=== PATIENT | female | born 1965 | race Caucasian/White ===

== ENCOUNTER → 2022-01-21 | Outpatient (CLI) | payer OTHER, SELFPAY ==
--- NOTE | 2022-01-21 15:23 | US_ITS ---
STUDY: THYROID ULTRASOUND REASON FOR EXAM: Female, 56 years old. GOITER TECHNIQUE: Ultrasound evaluation of the thyroid was performed with real-time and static schmidt-scale imaging. COMPARISON: None. FINDINGS: RIGHT LOBE: The right lobe of the thyroid gland measures 4.2 x 1.7 x 1 point cm. There is a heterogeneous echotexture. There are no demonstrated solid, cystic or complex lesions. LEFT LOBE: The left lobe of the thyroid gland measures 3.6 x 1.5 x 1.2 cm. There is a heterogeneous echotexture. Small hyperechoic solid nodule in the lower pole measuring 5 x 7 x 6 mm demonstrating irregular margins and jomar nodular vascularity ISTHMUS: The isthmus measures 3 mm . The regional lymph nodes are normal. US/Thyroid IMPRESSION: Borderline enlargement of the thyroid demonstrating heterogeneous echogenicity. Small subcentimeter nodule in the lower pole of the left lobe likely adenoma. Recommend clinical correlation and follow-up studies Electronically Signed: Diego Pereira MD at 17:04 EST ,
== END | disposition home or self-care (01) ==
PROVIDERS: PCP Internal Medicine Endocrinology, Diabetes & Metabolism; Referring Provider Internal Medicine Endocrinology, Diabetes & Metabolism; Visit Provider Internal Medicine Endocrinology, Diabetes & Metabolism
DX: E04.9 Nontoxic goiter, unspecified (principal)
CPT/HCPCS: 76536

== ENCOUNTER → 2022-12-29 | Outpatient (CLI) | payer OTHER, SELFPAY ==
--- NOTE | 2022-12-29 11:45 | RAD_ITS ---
STUDY: X-RAY - PELVIS AND LEFT HIP REASON FOR EXAM: Female, 57 years old. Hip pain. TECHNIQUE: 3 views of the pelvis and hip. COMPARISON: None. FINDINGS: There is a non-specific bowel gas pattern. Clips projected over the upper right ilium and sacrum. Phleboliths. Mild arthrosis of both sacroiliac joints, symphysis pubis and both hips. . RAD/HIP, UNI W/ Pelvis 2-3 Views IMPRESSION: Mild osteoarthritic changes. No acute abnormality. Electronically Signed: Moses Jansen MD at 13:44 EDT ,
--- NOTE | 2022-12-29 12:00 | RAD_ITS ---
STUDY: X-RAY - LUMBAR SPINE REASON FOR EXAM: Female, 57 years old. Low back pain with right-sided sciatica TECHNIQUE: 4 view(s) of the lumbar spine were obtained. COMPARISON: None FINDINGS: Normal lumbar lordosis. No substantial scoliosis. Normal alignment of the vertebrae. Diffuse lower thoracic and lumbosacral facet sclerosis. Mild intervertebral disc space narrowing in the lower thoracic spine and at L3-4, L4-5 and L5-S1. Osteophytes most marked at L3-4 and L4-5. Clips projected over the upper right ilium and right sacrum. Phleboliths. RAD/L/S Spine Min 4 Views IMPRESSION: Mild lower lumbosacral spondylosis. No other abnormality. Electronically Signed: Moses Jansen MD at 14:48 EDT ,
== END | disposition home or self-care (01) ==
LOC: RAD 11:42
PROVIDERS: PCP Internal Medicine Endocrinology, Diabetes & Metabolism; Referring Provider Registered Nurse; Visit Provider Registered Nurse
DX: M25.552 Pain in left hip (principal); M54.41 Lumbago with sciatica, right side; G89.29 Other chronic pain
CPT/HCPCS: 72110; 73502

== ENCOUNTER → 2023-07-24 | Outpatient (CLI) | payer OTHER, SELFPAY ==
--- NOTE | 2023-07-24 10:07 | US_ITS ---
STUDY: RENAL ULTRASOUND - COMPLETE REASON FOR EXAM: Female, 58 years old. RENAL CYSTS TECHNIQUE: Ultrasound evaluation of the kidneys was performed with real-time and static dean-scale imaging. COMPARISON: None. FINDINGS: RIGHT KIDNEY: Normal location of the right kidney, which is normal in size. The right kidney measures 11.0 cm. There is a normal cortex of the right kidney. The renal cortex measures 1.1 cm. There is no right renal mass or cyst. There are no right renal calculi. There is no right hydronephrosis. DISTAL RIGHT URETER: There is non-visualization of the distal right ureter. There is no demonstrated right ureterovesical junction calculus. There is a visualized right ureteral jet. LEFT KIDNEY: Normal location of the left kidney, which is normal in size. The left kidney measures 9.5 cm. There is a normal cortex of the left kidney. The renal cortex measures 1.1 cm. There is no left renal mass or cyst. There are no left renal calculi. There is no left hydronephrosis. DISTAL LEFT URETER: There is non-visualization of the distal left ureter. There is no demonstrated left ureterovesical junction calculus. There is a visualized left ureteral jet. BLADDER: The distended urinary bladder has a volume of 252 ml. The empty urinary bladder has a volume of ml. There is a normal wall thickness of the distended urinary bladder. There is no demonstrated mass within the urinary bladder. There are no demonstrated bladder calculi. US/Kidney and Bladder IMPRESSION: Normal ultrasound of the kidneys and urinary bladder. Electronically Signed: Hiren Gomez MD at 22:17 EDT ,
--- NOTE | 2023-07-24 10:08 | US_ITS ---
STUDY: THYROID ULTRASOUND REASON FOR EXAM: Female, 58 years old. HYPOTHYROIDISM TECHNIQUE: Ultrasound evaluation of the thyroid was performed with real-time and static schmidt-scale imaging. COMPARISON: 01/21/2022 FINDINGS: RIGHT LOBE: The right lobe of the thyroid gland measures 4.0 x 1.3 x 1.4 cm. There is a heterogeneous echotexture. Nodule 1:6 x 5 x 6 mm solid hypoechoic wider than tall smoothly marginated nodule with no echogenic foci (TR 4) in the superior right lobe consistent with an adenoma. LEFT LOBE: The left lobe of the thyroid gland measures 3.5 x 1.3 x 1.3 cm. There is a heterogeneous echotexture. Nodule 2:7 x 6 x 7 mm solid isoechoic wider than tall smoothly marginated nodule with no echogenic bedside TR 3) in the inferior left lobe consistent with an adenoma. ISTHMUS: The isthmus measures 5 mm thick. . The regional lymph nodes are normal. US/Thyroid IMPRESSION: Thyroiditis with small adenomas. Electronically Signed: Hiren Gomez MD at 22:19 EDT ,
== END | disposition home or self-care (01) ==
LOC: US 10:01
PROVIDERS: PCP Registered Nurse; Referring Provider Registered Nurse; Visit Provider Registered Nurse
DX: Q61.02 Congenital multiple renal cysts (principal); E03.9 Hypothyroidism, unspecified
CPT/HCPCS: 76536; 76770

== ENCOUNTER 2023-10-16 20:14 | Emergency (ER) | payer OTHER, SELFPAY ==
[2023-10-16 20:15] VITALS: BP 166/119; PULSE 77; RESP 18; TEMP 36.8; O2SAT 100; BMI 33.3
--- NOTE | 2023-10-16 20:24 | EX.ED.DYSGE1 ---
HPI History of Present Illness Chief Complaint: Allergic Reaction Informant: patient and spouse/S.O. Narrative Narrative: 58-year-old female presenting to the emergency room with a bee sting. Patient states that she was working in the flower beds when she was stung by a very big insect on her left forearm. States she got very shaky and had blurry vision she felt her heart racing. gave her a dose of Benadryl and they came to the hospital. She has had no other significant reactions. Patient denies any lip or tongue swelling. She did note that her tongue was feeling different than normal. She developed some hives at the site of the injection and some redness around her neck. no wheezing. She felt a burning sensation from her head to her toes. [facility] Medical History (Updated 10/16/23 @ 20:[address] Zain Harding DO) Hypothyroidism Medical History no medical history Home Medications ?Medication ?Instructions ?Recorded ?Last Taken ?Type levothyroxine 100 mcg tablet 100 mcg PO DAILY 10/16/23 Unknown History valacyclovir 1 gram tablet 4,000 mg PO X1 10/16/23 Unknown History Allergy/AdvReac Type Severity Reaction Status Date / Time cortisone Allergy Mild Rash Verified 10/16/23 20:19 Social History Smoking Status: Former smoker ROS ROS ED ROS Narrative Shakiness burning sensation from head to toe Constitutional Constitutional ED: Denies chills or weight loss Eyes Eyes: Denies change in vision or diplopia ENT ENT ED: Denies ear pain, rhinorrhea or sore throat Cardiovascular Cardiovascular: Reports racing heartbeat; Denies chest pain, orthopnea or palpitations Respiratory/Chest Respiratory/Chest: Denies cough, dyspnea or orthopnea Gastrointestinal Gastrointestinal: Denies abdominal pain, diarrhea, nausea or vomiting Genitourinary Genitourinary ED: Denies dysuria, hematuria or urinary frequency Musculoskeletal Musculoskeletal: Denies arthralgias or myalgias Integumentary Reports rash; Denies abscess Neurologic Neurologic: Denies headache(s) or weakness Psychiatric Psychiatric: Denies anxiety, depression, suicidal ideation or suicidal thoughts Endocrine Endocrinology: Denies polydipsia, polyphagia or polyuria Allergic/Immunologic Allergic/Immunologic ED: Denies mouth swelling, tongue swelling or urticaria EXAM Physical Exam Const Vital Signs: 10/16/23 20:15 10/16/23 21:15 Temperature 98.2 F Temperature Source Temporal Pulse Rate 77 61 Respiratory Rate 18 12 Blood Pressure 166/119 H 128/74 H Blood Pressure Mean 134 92 Pulse Ox 100 99 Oxygen Delivery Method Room Air Room Air Positive well nourished and well developed General Appearance ED: well developed HEENT Reports normocephalic, head/scalp atraumatic and moist mucous membranes Eyes PERRL and EOMs intact bilaterally Neck no lymphadenopathy, supple and no JVD Resp normal respiratory effort and clear to auscultation bilaterally Cardio regular rate, regular rhythm and no murmurs GI normal to inspection, nondistended, normoactive bowel sounds and non-tender Palpation: soft Back/Spine no CVA tenderness and normal ROM Extremity normal to inspection General Extremety ED: Negative for edema General Extremity: Negative for edema Neuro oriented x3 and CN's II-XII intact bilaterally Sensorium / Orientation: alert Motor Exam: strength 5/5 throughout Psych mental status grossly normal Mood & Affect: Negative for depressed or tearful Skin no wounds Skin Narrative: There is a outlined area right anterior proximal forearm that is slightly erythematous and raised. I do not appreciate any diffuse hives. MDM MDM MDM Narrative Medical decision making narrative: Patient was placed on the monitor. She has already had Benadryl and so I gave her a dose of Pepcid. She notes allergic reaction to cortisone so I opted to not treat with steroids and to observe her. She is doing well. I do not appreciate any hives. The injection site shows some mild swelling. She would like to have some EpiPen's at home. Patient will continue Benadryl as well as some hydrocortisone cream at the injection site. She was advised that she may have redness and swelling at the site of envenomation. History & Record Review Discussion w/independent historian: Patient and Significant other Discharge Plan Triage Chief Complaint: Allergic Reaction ED Provider: Zain Harding Dx/Rx/DC Orders Prescriptions: No Action valacyclovir 1 gram tablet 4,000 mg PO X1 levothyroxine 100 mcg tablet 100 mcg PO DAILY Primary Care Provider: Antonella Pacheco NP Referrals: Antonella Pacheco PRINTING TABLE WORKER, PRINTING TABLE WORKER-C [Primary Care Provider] - Print Language: Tajik
[2023-10-16] MEDS: Famotidine 20 MG Tablet 40 MG PO (20:31)
[2023-10-16 21:15] VITALS: BP 128/74; PULSE 61; RESP 12; O2SAT 99
[2023-10-16 21:53] VITALS: BP 123/78; PULSE 88; RESP 16; TEMP 36.6; O2SAT 100
== END 2023-10-16 21:54 | disposition home or self-care (01) ==
PROVIDERS: Emergency Provider Emergency Medicine; PCP Registered Nurse; Visit Provider Emergency Medicine
DX: H53.8 Other visual disturbances (principal); T63.444A Toxic effect of venom of bees, undetermined, initial encounter; Z87.891 Personal history of nicotine dependence; E03.9 Hypothyroidism, unspecified; Z79.890 Hormone replacement therapy
CPT/HCPCS: 99284

== ENCOUNTER → 2024-05-01 | Outpatient (CLI) | payer OTHER, SELFPAY ==
[2024-05-01 12:35] LABS: Follicle Stimulating Hormone 6.6 mIU/mL; Luteinizing Hormone 8.9 mIU/mL
== END | disposition home or self-care (01) ==
PROVIDERS: PCP Registered Nurse; Referring Provider Obstetrics & Gynecology; Visit Provider Obstetrics & Gynecology
DX: N93.9 Abnormal uterine and vaginal bleeding, unspecified (principal)
CPT/HCPCS: 36415; 82670; 83001; 83002

== ENCOUNTER → 2024-05-12 | Outpatient (CLI) | payer OTHER, SELFPAY ==
--- NOTE | 2024-05-12 12:52 | US_ITS ---
PROCEDURE: PELVIC W/ TRANSVAGINAL REASON FOR EXAM: Abnormal uterine bleeding. TECHNIQUE: Transabdominal and transvaginal pelvic ultrasound COMPARISON: None. FINDINGS: Measurements: Uterus: 12.2 cm x 6.1 cm x 4.9 cm with a volume of 190.7 mL Endometrial Thickness: 11.3 mm. Endometrial thickening. Right Ovary: The patient is status post right oophorectomy. Left Ovary: 2.9 cm x 2.5 cm x 2 cm with a volume of 7.64 mL. TRANSABDOMINAL: Uterus: There are multiple small fibroids seen. The largest is in the fundal portion measuring 1.8 cm x 1.3 cm 1.4 cm. There is a nabothian cyst. Endometrium: Endometrium measures 11.3 mm. It is thickened. Right ovary: Status post right oophorectomy Left ovary: Normal size and echotexture. No large pelvic mass identified. Transvaginal sonography was performed to better visualize the endometrium. TRANSVAGINAL: Uterus: Anteverted. Small uterine fibroids. Endometrium: Endometrium is thickened and measures 11.3 mm. Right ovary: Status post right oophorectomy. Left ovary: Normal size and echotexture. Other adnexal findings: None. Cul-de-sac: No free intraperitoneal fluid identified. No tenderness. US/Pelvic w/ Transvaginal IMPRESSION: Status post right oophorectomy. Multiple small uterine fibroids. Endometrial thickening measuring 11.3 mm. Reading Location: [id number]
== END | disposition home or self-care (01) ==
LOC: US 12:48
PROVIDERS: PCP Registered Nurse; Referring Provider Obstetrics & Gynecology; Visit Provider Obstetrics & Gynecology
DX: N93.9 Abnormal uterine and vaginal bleeding, unspecified (principal)
CPT/HCPCS: 76830; 76856

== ENCOUNTER → 2024-06-30 | Outpatient (CLI) | payer OTHER, SELFPAY ==
--- NOTE | 2024-06-30 09:30 | EMB_PTH ---
PATIENT: GRACE ELKINS LOC: [facility] U#:[id number] AGE/SX: 59/F ROOM: RE06/30/[address]: Dr. Sarah Cardoso DO : 1965 BED: DIS: 06/30/2024 SPEC #: [id number] RECD: 06/30/24 12:36 STATUS: KEV TOM #: [id number] JULIANN: 06/30/24 09:[address]: Sarah Cardoso DEPT: SURGICAL PATHOLOGY RECD BY: Mansoor Perez ENTERED: 06/30/24 12:47 SP TYPE: ENDOM BX/C OTHR DR: Antonella Pacheco, DUNCAN Tissues: A - POLYP B - Endometrium, NOS Procedures: Surgery Specimen Level IV HEADER OPERATION: Polypectomy, endometrial bleeding PRE-OP DIAGNOSIS: Cervical polyp TISSUE SUBMITTED: A- Cervical polyp, B- Endometrial lining MICROSCOPIC DIAGNOSIS A. Cervix, polyp, polypectomy: * Benign endocervical mucosal polyp with marked active chronic inflammation. B. Endometrium, biopsy: * Polypoid fragments of benign endocervical mucosa. * Exfoliated squamous and columnar cervical epithelial cells. * No endometrium seen. MICROSCOPIC DESCRIPTION Slides are reviewed. GROSS DESCRIPTION A. Received in formalin in a container labeled with the patient's name, date of , and cervical polyp is a white-red, wispy fragment of soft tissue with attached blood clot material measuring 1.0 x 0.5 x 0.3 cm together. Submitted in toto in A1. B. Received in formalin in a container labeled with the patient's name, date of , and EMB are multiple red-ramsey fragments of soft tissue admixed with blood and mucus measuring 1.7 x 1.3 x 0.4 cm in aggregate. Submitted in toto in B1. [facility] 06-30-2024 CPT:85785i6
== END | disposition home or self-care (01) ==
LOC: LABSPEC 11:39
PROVIDERS: PCP Registered Nurse; Referring Provider Obstetrics & Gynecology; Visit Provider Obstetrics & Gynecology
DX: N84.1 Polyp of cervix uteri (principal)
CPT/HCPCS: 88305

== ENCOUNTER → 2024-10-09 | Outpatient (CLI) | payer OTHER, SELFPAY ==
--- NOTE | 2024-10-09 14:30 | EMB_PTH ---
PATIENT: GRACE ELKINS LOC: [facility] U#:[id number] AGE/SX: 59/F ROOM: RE10/09/[address]: Dr. Sarah Cardoso DO : 1965 BED: DIS: 10/09/2024 SPEC #: [id number] RECD: 10/09/24 15:01 STATUS: KEV TOM #: [id number] JULIANN: 10/09/24 14:[address]: Sarah Cardoso DEPT: SURGICAL PATHOLOGY RECD BY: Leland Guy ENTERED: 10/09/24 15:36 SP TYPE: ENDOM BX/C NELLA DR: Antonella Pacheco, DUNCAN Tissues: A - Endometrium, NOS Procedures: Surgery Specimen Level IV HEADER OPERATION: Endometrial biopsy PRE-OP DIAGNOSIS: Menorrhagia TISSUE SUBMITTED: A- Endometrial lining MICROSCOPIC DIAGNOSIS A. Endometrium, biopsy: - Few fragmented endometrial glands - see note. - Scant superficial endocervical epithelium. Note: No endometrial stroma is included. Scant tissue is present. Clinical correlation to assess the adequacy of this sampling is necessary. MICROSCOPIC DESCRIPTION Slides are reviewed. GROSS DESCRIPTION A. Received in formalin labeled with the patient's name and date of is a 1.5 x 1.5 x 0.1 cm aggregate of mucoid material and flecks of red tissue. Entirely submitted in 1 cassette. [facility] 10/09/2024 CPT:75344
== END | disposition home or self-care (01) ==
LOC: BWCLAB 13:38 → LABSPEC 14:44
PROVIDERS: PCP Registered Nurse; Visit Provider Obstetrics & Gynecology
DX: N92.0 Excessive and frequent menstruation with regular cycle (principal)
CPT/HCPCS: 88305

== ENCOUNTER 2024-10-17 05:34 | Day surgery (SDC) | payer OTHER, SELFPAY ==
[2024-10-09 15:02] LABS: Hematocrit 37.4 % (37-47); Hemoglobin 12.9 g/dL (12.0-15.0); Mean Corp Hgb Conc 34.5 g/dL (32-36); Mean Corpuscular Volume 94.9 fL (81-99); Mean Platelet Vol. 9.3 fl (6.2-12.0); Platelet Count 234 K/mm3 (150-450); RBC Distribution Width CV 12.2 % (11.6-14.6); RBC Distribution Width SD 42.1 fl (35.1-43.9); Red Blood Count 3.94 M/mm3 (4.2-5.4); White Blood Count 6.8 K/mm3 (4.4-11.0)
[2024-10-09 15:41] LABS: Magnesium 1.9 mg/dL (1.5-2.2)
[2024-10-09 16:51] LABS: Anion Gap 12 (5-15); BUN 15 mg/dL (4-19); BUN/Creat Ratio 20.9 RATIO (10-20); Calcium,Total 8.9 mg/dL (7.6-11.0); Carbon Dioxide 25.4 mmol/L (21.0-32.0); Chloride 103 mmol/L (98-108); Glucose 122 mg/dL (70-99); Potassium 3.7 mmol/L (3.3-5.1)
--- NOTE | 2024-10-11 11:49 | EKG12_ITS ---
Test Reason : PREOP Blood Pressure : */* mmHG Vent. Rate : 62 BPM Atrial Rate : 62 BPM P-R Int : 168 ms QRS Dur : 72 ms QT Int : 412 ms P-R-T Axes : 20 1 8 degrees QTcB Int : 418 ms Normal sinus rhythm Normal ECG Confirmed by ISAAC DAO, ABIODUN ([id number]), index editor GERBER VANESSA ([id number]) on 10/12/2024 6:33:20 AM Referred By: Sarah Cardoso Confirmed By: ABIODUN GRAY MD
[2024-10-17] VITALS (13 sets, daily range): BP systolic 132–161; BP diastolic 74–88; PULSE 51–74; RESP 14–16; TEMP 36.2–37.1; O2SAT 93–100; BMI 33.1
--- OUTSIDE RECORDS SUMMARY | 2024-10-17 05:37 | XMS RPT_ITS | CCD ---
Author Organization [facility] Care Team Providers Care Optician Manager Name Role Phone Duke Dale Unavailable Unavailable PROVIDER, UNKNOWN Unavailable Unavailable Duke Dale Unavailable Unavailable López DAO, Eliseo Palacios Unavailable Duke Dale Primary Care Provider Duke Dale Primary Care Provider Duke Dale MD Primary Care Provider Duke Dale Primary Care Provider Duke Dale Primary Care Provider Duke Dale MD Primary Care Provider Duke Dale MD Primary Care Provider Duke Dale Primary Care Provider Junior HYDROELECTRIC OPERATOR-CJames Primary Care Provider Junior HYDROELECTRIC OPERATOR-CJames Referring Provider Dr. Sarah Cardoso DO Attending Provider Dr. Sarah Cardoso DO Referring Provider Junior ROAD ADVISOR - LABOR ECONOMICS PROFESSOR, James S Unavailable Junior HYDROELECTRIC OPERATOR-C, James Primary Care Provider Junior HYDROELECTRIC OPERATOR-C, James Referring Provider Dr. Sarah Cardoso DO Attending Provider Dr. Sarah Cardoso DO Referring Provider CHITO, DUKE Primary Care Unavailable JAMES PACHECO Attending Unavailable CHITO, DUKE Primary Care Unavailable JAMES PACHECO Attending Unavailable CHITO, DUKE Primary Care Unavailable JAMES PACHECO Attending Unavailable CHITO, DUKE Primary Care Unavailable CHITO, DUKE Attending Unavailable CHITO, DUKE Primary Care Unavailable CHITO, DUKE Primary Care Unavailable JUNIOR, JAMES Referring Unavailable JAMES PACHECO Attending Unavailable CHITO, DUKE Primary Care Unavailable Sarah Cardoso Attending Unavailabl e Junior HYDROELECTRIC OPERATOR, Powers Primary Care Unavailable Vande Velandre Sarah Referring Unavailabl e Vande VelSarah powell Attending Unavailabl e Tome VelSarah powell Referring Unavailabl e Junior HYDROELECTRIC OPERATOR, Powers Primary Care Unavailable Sarah Cardoso Attending Unavailabl e Tome VelTerri powellfer Referring Unavailabl e Junior HYDROELECTRIC OPERATOR, Powers Primary Care Unavailable Junior HYDROELECTRIC OPERATOR, Powers Referring Unavailable VandSarah Darnell Attending Unavailabl e Junior HYDROELECTRIC OPERATOR, Powers Primary Care Unavailable Junior HYDROELECTRIC OPERATOR, Powers Referring Unavailable VandSarah Darnell Attending Unavailabl e Junior HYDROELECTRIC OPERATOR, [facility] Care Unavailable Zain Harding Attending Unavailable Junior HYDROELECTRIC OPERATOR, Powers Primary Care Unavailable Tome Sarah Blanco Attending Unavailabl e Junior HYDROELECTRIC OPERATOR, Powers Primary Care Unavailable Junior HYDROELECTRIC OPERATOR, Powers Referring Unavailable VandSarah Darnell Attending Unavailabl e Junior HYDROELECTRIC OPERATOR, [facility] Care Unavailable Sarah Cardoso Attending Unavailabl e Junior HYDROELECTRIC OPERATOR, [facility] Care Unavailable Terri Cardosofer Referring Unavailabl e CHITO, DUKE [place] Primary Care Unavailabl FORREST Foley Attending Unavailabl e Allergies Allergy Classification Reported Allergen(s) Allergy Type Date of Onset Reaction(s) Facility (1 source) Codeine Drug Allergy 09-23-19 16 [facility] Work Phone: (1 source) Triamcinolone Drug Allergy 04-13-19 17 increased heart beat [facility] Work Phone: (20 sources) Azithromycin; Translations: [AZITHROMYCIN] Drug Allergy 01-28-20 16 [facility] [place] [place] (20 sources) Codeine; Translations: [CODEINE] Drug Allergy 09-23-19 16 H[place] (20 sources) Cortisone; Translations: [CORTISONE] Drug Allergy 03-30-19 12 Rash [place] Comment on above: PALPITATION (17 sources) Triamcinolone Drug Allergy 04-13-19 17 [facility] (7 sources) bee venom Allergy to substance 10-16-19 24 Swelling [facility] Comment on above: rash, erythema (4 sources) valACYclovir Drug Allergy 04-03-19 25 Diarrhea, Palpitations [facility] (1 source) Azithromycin Drug Allergy 10-10-19 [facility] (1 source) Cortisone Drug Allergy 10-10-19 [facility] (1 source) bee venom protein (honey bee) Drug allergy (disorder) 10-10-19 [facility] (1 source) BEES; Translations: [BEES] Propensity to adverse reactions (disorder) 10-14-19 [facility] Medications Current Medications Medication Drug Class(es) Dates Sig (Normalized) Sig (Original) acyclovir 50 mg/ml topical cream (4 sources) Herpesvirus Nucleoside Analog DNA Polymerase Inhibitor, Herpes Simplex Virus Nucleoside Analog DNA Polymerase Inhibitor, Herpes Zoster Virus Nucleoside Analog DNA Polymerase Inhibitor Start: 04-14-2024 acyclovir (Zovirax) 5 % cream Indications: Recurrent cold sores Apply topically 5 times daily. X4 days for recurrent cold sores 5 g 2 04/14/2024 Active Start: 04-03-2024 End: 04-14-2024 acyclovir (Zovirax) 5 % oint ment Indications: Recurrent cold sores Apply 5 times daily for 4 days. Space applications every 3 hours. 15 g 04/03/2024 04/14/2024 Discontinued (Formulary change) amoxicillin 500 mg oral capsule (1 source) Penicillin-class Antibacterial Start: 05-15-2022 End: 05-25-2022 take 1 capsule by mouth twice daily amoxicillin (Amoxil) 500 MG capsule Indications: Pharyngitis, unspecified etiology , Exposure to strep throat Take 1 capsule (500 mg) by mouth 2 times daily for 10 days. 20 capsule 0 05/15/2022 05/25/2022 Active [id number] 0.3 ml EPINEPHrine 1 mg/ml auto-injector (11 sources) alpha-Adrenergic Agonist, beta-Adrenergic Agonist, Catecholamine Start: 10-02-2024 EPINEPHrine (Epipen) 0.3 MG/0.3ML injection syringe Indications: Bee sting allergy Inject 0.3 mL (0.3 mg) as directed Once for 1 dose. Inject into upper leg. Call 911 after use. 1 each 10/02/2024 Active Start: 10-17-2023 End: 10-02-2024 EPINEPHrine (Epipen) 0.3 MG/ 0.3ML injection syringe 10/17/2023 10/02/2024 Discontinued (Reorder) Start: 10-16-2023 Epinephrine (E pipen 2-Chon) 0.3 mg/0.3 mL auto-injector Active 0.3 mg IM Q4H as needed for anaphylaxis 2 0 October 16, 2023 12:00am ferrous gluconate 324 mg oral tablet (11 sources) Start: 12-02-2020 take 1 tablet by mouth every other day ferrous gluconate 324 mg (37.5 mg iron) tablet Take 1 tablet by mouth every other day. 12/02/2020 Active Comment on above: Take 1 tablet by cathy th every other day. ferrous sulfate 325 mg oral tablet (4 sources) Start: 05-01-2024 take 1 tablet by mouth every other day Ferrous Sulfate 325 mg (65 mg iron) tablet Active 325 mg PO EVERY OTHER DAY May 01, 2024 1:00am Start: 05-01-2024 take 1 tablet by cathy th once daily Ferrous Sulfate 325 mg (65 mg iron) tablet Active 325 mg PO daily May 01, 2024 1:00am Start: 01-06-2016 FERROUS SULFAT E TABS 325mg. TAB daily FERROUS SULFATE TABS [id number] Eliseo Dawn MD IRON, FERROUS GLUCONATE, PO (20 sources) take 324 mg by mouth three times weekly IRON, FERROUS GLUCONATE, PO Take 324 mg by mouth. 3 times per week Active take 324 mg by mouth three times weekly IRON, FERROUS GLUCONATE, PO Take 324 mg by mouth. 3 times per week 0 Active IRON, FERROUS GL UCONATE, PO Take by mouth 0 Active levothyroxine sodium 0.1 mg oral tablet (20 sources) l-Thyroxine Start: 09-07-2024 take 1 tablet by mouth once daily levothyroxine (SYNTHROID) 100 mcg tablet Indications: Acquired hypothyroidism TAKE 1 TABLET BY MOUTH EVERY DAY 30 tablet 1 09/07/2024 Active Start: 03-05-2022 End: 09-07-2024 take 1 tablet by mouth once daily Levothyroxine 100 mcg tablet Active 100 ug PO DAILY October 16, 2023 12:00am Start: 01-12-2022 End: 04-01-2022 take 1 tablet by mouth once daily before breakfast levothyroxine (Synthroid, Levoxyl) 88 MCG tablet Indications: Hypothyroidism, unspecified type TAKE 1 TABLET BY MOUTH EVERY MORNING BEFORE BREAKFAST 30 tablet 0 03/24/2022 04/01/2022 Discontinued (Dose adjustment) Start: 01-19-2019 levothyroxine (SYNTHROID) 88 MCG tablet Start: 09-23-2015 LEVOXYL 75 MCG TABS one tab daily, every Wednesday one and a half tabs LEVOTHYROXINE SODIUM [id number] Eliseo Dawn MD Comment on above: Take 1 tablet by cathy th once daily. take 1 tablet by cathy th once daily loratadine 10 mg oral tablet (7 sources) loratadine (Clar itin) 10 MG tablet Take by mouth. Active MULTIPLE VITAMIN PO (16 sources) MULTIPLE VITAMIN PO Take by mouth. Active MULTIPLE VITAMIN PO Take by mouth. 0 Active Multiple Vitamins-Minerals (MULTIVITAMIN ADULT PO) (3 sources) take 1 tablet by mouth once daily Multiple Vitamins-Minerals (MULTIVITAMIN ADULT PO) Take 1 tablet by mouth daily 0 Active Multivitamin preparation (11 sources) MULTIVITAMIN (MU LTIPLE VITAMINS ORAL) Take by mouth. Active MULTIVITAMIN (MU LTIPLE VITAMINS ORAL) Take by mouth. 0 Active Comment on above: Take by mouth. Multivitamin tablet (3 sources) Start: 05-01-2024 Multivitamin tablet Active 1 {tbl} PO daily May 01, 2024 1:00am mv-min/vit C/glut/lysine/hb124 (IMMUNE SUPPORT ORAL) (11 sources) mv-min/vit C/glut/lysine/hb124 (IMMUNE SUPPORT ORAL) Take by mouth. Active mv-min/vit C/glu t/lysine/hb124 (IMMUNE SUPPORT ORAL) Take by mouth. 0 Active Comment on above: Take by mouth. omeprazole 20 mg delayed release oral tablet (2 sources) Proton Pump Inhibitor Start: 025 End: 026 take 1 tablet by mouth once daily as needed for gastroesophageal reflux disease omeprazole OTC (PriLOSEC OTC) 20 MG EC tablet Indications: Gastroesophageal reflux disease without esophagitis Take 1 tablet (20 mg) by mouth Daily as needed (GERD). Do not crush, chew, or split. 90 tablet 1 04/14/2024 04/14/2025 Active Zinc (17 sources) take 1 tablet by cathy th once daily Zinc 50 mg tab Take 50 mg by mouth once daily. Active take 1 tablet by mouth in the mo rning zinc 50 MG tablet Take 50 mg by mouth in the morning. 0 Active take 1 tablet by mouth once lisa y Zinc 50 mg tab Take 50 mg by mouth once daily. 0 Active Comment on above: Take 50 mg by mouth once daily. zinc acetate 50 mg oral capsule (3 sources) Start: 05-01-2024 take 1 capsule by mouth once daily Zinc Acetate 50 mg (zinc) capsule Active 50 mg PO daily May 01, 2024 1:00am zinc gluconate 50 mg oral tablet (14 sources) take 1 tablet by mouth in the morning zinc 50 MG tablet Take 50 mg by mouth in the morning. Active Completed/Discontinued Medications Medication Drug Class(es) Dates Sig (Normalized) Sig (Original) famotidine 20 mg oral tablet (5 sources) Histamine-2 Receptor Antagonist End: 04-03-2024 famotidine (Pepcid) 20 MG tablet Take by mouth. 04/03/2024 Discontinued (Therapy completed) ibuprofen 200 mg oral tablet (1 source) Nonsteroidal Anti-inflammatory Drug Start: 04-13-2016 IBUPROFEN 200 MG TABS 2 TABs every 4 hours as needed IBUPROFEN [id number] Eliseo Dawn MD meloxicam 15 mg oral tablet (2 sources) Nonsteroidal Anti-inflammatory Drug Start: 01-01-2023 End: 04-09-2023 take 1 tablet by mouth once daily meloxicam (Mobic) 15 MG tablet Indications: Spondylosis of lumbar joint , Arthritis of both hips Take 1 tablet (15 mg) by mouth daily. 30 tablet 0 01/01/2023 04/09/2023 Discontinued (Med list cleanup) MULTIPLE VITAMINS-MINERALS (1 source) Start: 12-10-2015 MULTIVITAMIN ADULT TABS 1 TAB daily MULTIPLE VITAMINS-MINERALS [id number] Eliseo Dawn MD valACYclovir 1000 mg oral tablet (20 sources) Herpesvirus Nucleoside Analog DNA Polymerase Inhibitor, Herpes Simplex Virus Nucleoside Analog DNA Polymerase Inhibitor, Herpes Zoster Virus Nucleoside Analog DNA Polymerase Inhibitor Start: 10-16-2023 End: 05-01-2024 Valacyclovir 1 gram tablet Discontinued 4000 mg PO ONE TIME October 16, 2023 12:00am May 01, 2024 11:04am Start: 10-07-2022 End: 04-03-2024 take 2 tablets by mouth twice daily valACYclovir (Valtrex) 1 g tablet Indications: Recurrent cold sores Take 2 tablets (2,000 mg) by mouth 2 times daily. 12 tablet 1 10/08/2023 04/03/2024 Discontinued (Side effects) Start: 02-06-2019 valACYclovir ( VALTREX) 1 g tablet Indications: Recurrent cold sores 2 g twice daily for 1 day 21 tablet 0 02/06/2019 Active Problems Active Problems Problem Classification Problem Date Documented Date Episodic/Chronic Allergic reactions (3 sources) Allergy to bee venom; Translations: [Bee allergy status] Onset: 10-02-2024 10-02-2024 Episodic Anxiety disorders (1 source) Anxiety; Translations: [Anxiety disorder, unspecified] 10-02-2024 Chronic Benign neoplasm of uterus (7 sources) Uterine leiomyoma; Translations: [Leiomyoma of uterus, unspecified] Onset: 10-02-2024 06-30-2024 Episodic Cardiac dysrhythmias (1 source) Palpitations; Translations: [Palpitations] 10-07-2022 Episodic Deficiency and other anemia (8 sources) Anemia; Translations: [Anemia, unspecified] Onset: 03-30-2012 Resolved: 04-19-2014 04-19-2014 Episodic Esophageal disorders (20 sources) Gastroesophageal reflux disease without esophagitis; Translations: [Gastro-esophageal reflux disease without esophagitis] Onset: 03-16-2017 03-16-2017 Chronic Genitourinary congenital anomalies (19 sources) Multiple renal cysts; Translations: [Congenital multiple renal cysts] Onset: 04-09-2023 04-09-2023 Chronic Genitourinary symptoms and ill-defined conditions (6 sources) Urgent desire to urinate; Translations: [Urgency of urination] 10-08-2023 Episodic Menstrual disorders (15 sources) Menorrhagia; Translations: [Excessive and frequent menstruation with regular cycle] Onset: 04-03-2024 10-07-2022 Chronic Nutritional deficiencies (2 sources) Iron deficiency; Translations: [Iron deficiency] Onset: 04-19-2014 04-12-2017 Chronic Nutritional deficiencies (20 sources) Iron deficiency; Translations: [Iron deficiency] Onset: 04-19-2014 04-12-2017 Episodic Osteoarthritis (20 sources) Bilateral arthritis of hip; Translations: [Bilateral primary osteoarthritis of hip] Onset: 01-01-2023 01-01-2023 Chronic Other connective tissue disease (1 source) Plantar fasciitis; Translations: [Plantar fascial fibromatosis] Onset: 09-16-2018 09-16-2018 Episodic Other endocrine disorders (5 sources) Reactive hypoglycemia; Translations: [Other hypoglycemia] Onset: 04-07-2010 Resolved: 05-31-2018 05-31-2018 Chronic Other female genital disorders (1 source) Abnormal uterine and vaginal bleeding, unspecified; Translations: [Abnormal uterine and vaginal bleeding, unspecified] Onset: 05-22-2024 Chronic Other nervous system disorders (2 sources) Carpal tunnel syndrome; Translations: [Carpal tunnel syndrome, left upper limb] Onset: 09-23-2015 09-23-2015 Chronic Other nervous system disorders (20 sources) Mortons neuroma of left foot; Translations: [Lesion of plantar nerve, left lower limb] Onset: 01-28-2016 01-28-2016 Chronic Other nervous system disorders (2 sources) Other chronic pain; Translations: [Other chronic pain] Onset: 10-07-2022 Chronic Other nervous system disorders (1 source) Eyelid finding; Translations: [Fasciculation] 10-02-2024 Episodic Other nervous system disorders (2 sources) Fasciculation; Translations: [Fasciculation] Onset: 10-02-2024 Episodic Other nervous system disorders (2 sources) Mortons neuroma of left foot; Translations: [Gibson's neuroma of left foot] Onset: 01-28-2016 01-28-2016 Other nutritional; endocrine; and metabolic disorders (3 sources) Obesity; Translations: [Obesity, unspecified] Onset: 03-29-2017 04-12-2017 Chronic Other nutritional; endocrine; and metabolic disorders (12 sources) Obese class I; Translations: [Obesity, unspecified] Onset: 05-30-2018 05-30-2018 Chronic Other skin disorders (1 source) Lesion of skin of nose; Translations: [Disorder of the skin and subcutaneous tissue, unspecified] 10-02-2024 Episodic Other skin disorders (2 sources) Disorder of the skin and subcutaneous tissue, unspecified; Translations: [Disorder of the skin and subcutaneous tissue, unspecified] Onset: 10-02-2024 Episodic Poisoning by nonmedicinal substances (11 sources) Bee sting; Translations: [Toxic effect of venom of bees, accidental (unintentional), initial encounter] Onset: 10-18-2023 Resolved: 04-14-2024 10-18-2023 Episodic Residual codes; unclassified (3 sources) Influenza vaccination declined; Translations: [Immunization not carried out because of patient refusal] 04-03-2024 Episodic Spondylosis; intervertebral disc disorders; other back problems (20 sources) Lumbar spondylosis; Translations: [Spondylosis without myelopathy or radiculopathy, lumbar region] Onset: 01-01-2023 01-01-2023 Chronic Thyroid disorders (20 sources) Hypothyroidism; Translations: [Hypothyroidism, unspecified] Onset: 03-25-2010 01-28-2016 Chronic Unclassified (20 sources) Encounter for screening mammogram for malignant neoplasm of breast; Translations: [Patient encounter status] Onset: 03-03-2017 04-09-2023 Episodic Unclassified (2 sources) Blood Work; Translations: [Blood Work] Onset: 10-29-2023 Unclassified (2 sources) Insect Bite; Translations: [Insect Bite] Onset: 10-18-2023 Unclassified (2 sources) ER Follow-up; Translations: [ER Follow-up] Onset: 10-18-2023 Unclassified (1 source) Obesity, Class I, BMI 30-34.9; Translations: [Obesity, Class I, BMI 30-34.9] Onset: 05-30-2018 Past or Other Problems Problem Classification Problem Date Documented Date Episodic/Chronic Blindness and vision defects (1 source) Other visual disturbances; Translations: [Other visual disturbances] Onset: 05-01-2024 Episodic E Codes: Adverse effects of medical drugs (4 sources) Adverse reaction to drug; Translations: [Adverse effect of unspecified drugs, medicaments and biological substances, initial encounter] Onset: 04-03-2024 04-03-2024 Episodic Immunizations and screening for infectious disease (1 source) Exposure to streptococcal pharyngitis; Translations: [Contact with and (suspected) exposure to other bacterial communicable diseases] Episodic Malaise and fatigue (1 source) Malaise; Translations: [Other malaise] Episodic Mood disorders (4 sources) Mood disorders Onset: 04-03-2024 04-03-2024 Other acquired deformities (7 sources) Spondylolisthesis; Translations: [Spondylolisthesis, site unspecified] Onset: 10-13-2023 10-13-2023 Episodic Other connective tissue disease (2 sources) Snapping thumb syndrome; Translations: [Trigger thumb, right thumb] Onset: 02-24-2016 06-09-2016 Episodic Other female genital disorders (1 source) Polyp of cervix uteri; Translations: [Polyp of cervix uteri] Onset: 07-05-2024 Episodic Other non-traumatic joint disorders (20 sources) Hip pain; Translations: [Pain in left hip] Onset: 10-07-2022 Episodic Other non-traumatic joint disorders (2 sources) Pain in left hip; Translations: [Pain in left hip] Onset: 10-07-2022 Episodic Other skin disorders (2 sources) Skin tag; Translations: [Other hypertrophic disorders of the skin] Episodic Other skin disorders (2 sources) Pain; Translations: [Disorder of the skin and subcutaneous tissue, unspecified] Episodic Other upper respiratory disease (3 sources) Congestion of nasal sinus; Translations: [Nasal congestion] Onset: 03-16-2017 03-16-2017 Episodic Other upper respiratory infections (1 source) Pharyngitis; Translations: [Acute pharyngitis, unspecified] Episodic Residual codes; unclassified (20 sources) Insomnia; Translations: [Insomnia, unspecified] Onset: 03-30-2012 04-12-2017 Episodic Residual codes; unclassified (2 sources) Insomnia, unspecified; Translations: [Insomnia, unspecified] Onset: 12-21-2021 Episodic Residual codes; unclassified (2 sources) Immunization not carried out because of patient refusal; Translations: [Immunization not carried out because of patient refusal] Onset: 04-14-2024 Episodic Screening or history of mental health and substance abuse (2 sources) Personal history of nicotine dependence; Translations: [Personal history of nicotine dependence] Onset: 03-03-2017 Episodic Spondylosis; intervertebral disc disorders; other back problems (9 sources) Chronic low back pain; Translations: [Lumbago with sciatica, right side] Onset: 10-13-2023 10-07-2022 Episodic Unclassified (1 source) Problem Urinary tract infections (20 sources) Acute cystitis; Translations: [Acute cystitis with hematuria] Onset: 01-06-2022 Resolved: 08-26-2022 01-06-2022 Episodic Viral infection (20 sources) Recurrent herpes simplex labialis; Translations: [Herpesviral vesicular dermatitis] Onset: 01-06-2022 01-06-2022 Episodic Results Test Name Value Interpretation Reference Range Facility [facility] 10-13-20[address] [address] [facility] Office Visit (ENDMED ) GRACE ELKINS ([id number]) 1965 F Date Time Provider Department 10/13/24 8:40 AM FORREST AMBROCIO During your visit today, we recorded the following information about you: Pulse Blood pressure Weight Height 63/minute 120/78 81.9 kg 1.59 m Forrest Ambrocio MD 10/13/2024 8:51 AM Signed Follow-up 59 year-old female, patient of Dr. Duke Dale, with history of goitrous primary hypothyroidism. Takes levothyroxine 0.1 mg qd. Reports she feels well, no fatigue. Notes no neck fullness or dysphagia. She had a right oophorectomy and appendectomy in the past. No reactive hypoglycemic problems reported. Defers flu shots. Has been working on losing weight. Had COVID vaccination. Getting total hysterectomy and oophorectomy next week. Current Outpatient Medications on File Prior to Visit Medication Sig levothyroxine (SYNTHROID) 100 mcg tablet TAKE 1 TABLET BY MOUTH EVERY DAY Zinc 50 mg tab Take 50 mg by mouth once daily. ferrous gluconate 324 mg (37.5 mg iron) tablet Take 1 tablet by mouth every other day. mv-min/vit C/glut/lysine/hb124 (IMMUNE SUPPORT ORAL) Take by mouth. MULTIVITAMIN (MULTIPLE VITAMINS ORAL) Take by mouth. Review of patient's allergies indicates: Cortisone Rash Review of systems: Denies fever, fatigue, weakness, change in balance or sensation, visual problems, hearing changes, dizziness, trouble swallowing, nasal difficulties, shortness of breath, chest pain, change in exertional tolerance, foot or leg problems, skin lesions, abdominal pain, diarrhea, constipation, urinary problems, incontinence, back pain, joint pains, anxiety, depression, insomnia, menstrual difficulties, breast lesions/pain/mass. BP 120/78 Pulse 63 Ht 159 cm (5' 2.6) Wt 81.9 kg (180 lb 8.9 oz) LMP 01/04/2021 SpO2 99% BMI 32.40 kg/m? Weight up 7 pounds since 07/2023. Height stable Healthy-appearing obese (BMI > 30) female in no distress. BP normal. Skin: Skin color, texture, turgor normal, no suspicious rashes or lesions Head: normocephalic, no masses, lesions, tenderness or abnormalities Eyes: Anicteric sclera. Pupils are equally round. Extraocular movements are intact. Ears: not examined Nose/Sinuses: Nares normal. No drainage or sinus tenderness. Oropharynx: Lips, mucosa, and tongue normal, teeth and gums not examined. Neck: Supple, no adenopathy; no palpable thyroid enlargement, no discernable nodules. Lungs: Breathing unlabored. Heart: RRR. No ectopy Abdomen: deferred Extremities: No deformities, edema, skin discoloration, clubbing or cyanosis. Good capillary refill. Musculoskeletal: Spine range of motion not tested. Muscular strength intact, No joint swelling, deformity, or tenderness Neuro: Gait normal. Sensation grossly intact. Labs done 10/10/2024 showed TSH 0.41, free T4 1.2, cholesterol 194, TG 133, HDL 64, LDL 105, normal CMP. Thyroid US done in 01/2022 showed heterogenous echotexture bilaterally, left lobe has a 0.7 cm nodule in lower pole, TR4 Thyroid US done in 07/2023 showed right superior 0.6 cm TR4, left lobe has a 0.7 cm nodule in in lower pole, TR3. IMPRESSION: Primary hypothyroidism - continue the current levothyroxine dose Obesity - urged weight loss efforts Goiter- recommended follow-up thyroid US PLAN: Continue current levothyroxine dose. Check thyroid ultrasound Will call with results. See us again in 12 months Forrest Ambrocio M.D. I spent a total of 30 minutes on the date of service which included preparing to see the patient, [id number] patient care, completing clinical documentation, performing a medically appropriate examination, counseling and educating the patient/family/caregiv er and ordering medications, tests, or procedures. Forrest Ambrocio MD 10/13/2024 8:47 AM Signed Schedule thyroid US at [facility] Will contact you with results See me again in 12 months Allergies As of Date: 10/13/2024 Noted Allergy Reaction AZITHROMYCIN 01/28/2016 4 - Hives BEES 10/13/2024 10 - Anaphylaxis CODEINE 01/28/2016 4 - Hives CORTISONE 03/30/2011 2 - Rash Date Reviewed: 10/13/2024 Reviewed by: Nhi Cooper MA - Fully Assessed Reason for Visit: Follow Up [171] Primary Visit Diagnosis:Thyroid nodule [E04.1] Other Visit Diagnoses:Obesity, Class I, BMI 30-34.9 [E66.811] Acquired hypothyroidism [E03.9] Order(s):levothyroxine (SYNTHROID) 100 mcg tabletTake 1 tablet by mouth once daily.Disp: 90 tabletRfl: 3 Prescriptions as of 10/13/2024 - levothyroxine (SYNTHROID) 100 mcg tablet Take 1 tablet by mouth once daily. - Zinc 50 mg tab Take 50 mg by mouth once daily. - ferrous gluconate 324 mg (37.5 mg iron) tablet Take 1 tablet by mouth every other day. - mv-min/vit C/glut/lysine/hb124 (IMMUNE SUPPORT ORAL) Take by mouth. - MULTIVITAMIN (MULTIPLE VITAMINS ORAL) Take by mouth. Problem Li (more content not included)... Normal [facility] 12 Lead EKGon 10-11-2024 12 Lead EKG [facility] Cardiovascular Services [address] [place] [address] 12 Lead EKG 10/11/24 1154 MR#: [id number] Acct: [id number] Name: GRACE ELKINS Rep #: [id number] : 1965 59 From: Alex House MD Attending Dr: Dr. Sarah Cardoso DO Statu s: PRE SDC Ordering Dr: Sarah Cardoso DO Date: 5 [place] [facility] [place] Sex: F C Admitted: Test Reason : PREOP Blood Pressure : */* mmHG Vent. Rate : 62 BPM Atrial Rate : 62 BPM P-R Int : 168 ms QRS Dur : 72 ms QT Int : 412 ms P-R-T Axes : 20 1 8 degrees QTcB Int : 418 ms Normal sinus rhythm Normal ECG Confirmed by ISAAC DAO, ALEX ([id number]), digital editor GERBER VANESSA ([id number]) on 10/12/2024 6:33:20 AM Referred By: Sarah Cardoso Confirmed By: ALEX HOUSE MD 10/12/24 0633 Date Alex House MD CC: DUNCAN Pacheco; Dr. Sarah Cardoso DO Signed Normal [facility] Progress Noteon 10-11-2024 Progress Note Lab/venipuncture completed by [facility] Basic Metabolic Profile (BMP )on 10-09-2024 BUN/CRE 20.9 RATIO High 10-20 [facility] Comment on above: Performed By: #### L 500.2500, BTS, L100.0500 ####[facility] [address] [place], [address] Calcium [Mass/Vol] 8.9 mg/dL Normal 7.6-11.0 [facility] Comment on above: Performed By: #### L 500.2500, BTS, L100.0500 ####[facility] [address] [place], [address] Chloride [Moles/Vol] 103 mmol/L Normal 98-108 [facility] Comment on above: Performed By: #### L 500.2500, BTS, L100.0500 ####[facility] [address] [place], [address] CO2 [Moles/Vol] 25.4 mmol/L Normal 21.0-32.0 [facility] Comment on above: Performed By: #### L 500.2500, BTS, L100.0500 ####[facility] [address] [place], [address] Creatinine [Mass/Vol] 0.73 mg/dL Normal 0.70-1.20 [facility] Comment on above: Performed By: #### L 500.2500, BTS, L100.0500 ####[facility] [address] [place], [address] GAP 12 Normal 5-15 [facility] Comment on above: Performed By: #### L 500.2500, BTS, L100.0500 ####[facility] [address] [place], [address] GFR/1.73 sq M.predicted among non-blacks MDRD (S/P/Bld) [Vol rate/Area] 95 mL/min/{1.73_m2} Normal >60 [facility] Comment on above: Result Comment: mL/m in/1.73m2 CKD-EPI Creatinine Equation (2020) Performed By: #### L 500.2500, BTS, L100.0500 ####[facility] [address] [place], [address] Glucose [Mass/Vol] 122 mg/dL High 70-99 [facility] Comment on above: Performed By: #### L 500.2500, BTS, L100.0500 ####[facility] [address] [place], [address] Potassium [Moles/Vol] 3.7 mmol/L Normal 3.3-5.1 [facility] Comment on above: Performed By: #### L 500.2500, BTS, L100.0500 ####[facility] [address] [place], [address] Sodium [Moles/Vol] 140 mmol/L Normal 133-145 [facility] Comment on above: Performed By: #### L 500.2500, BTS, L100.0500 ####[facility] [address] [place], [address] Urea nitrogen [Mass/Vol] 15 mg/dL Normal 4-19 [facility] Comment on above: Performed By: #### L 500.2500, BTS, L100.0500 ####[facility] [address] [place], [address] CBC-Complete Blood Cnt No Di on 10-09-2024 Erythrocyte distribution width (RBC) [Ratio] 12.2 % Normal 11.6-14.6 [facility] Comment on above: Performed By: #### L 500.2500, BTS, L100.0500 ####[facility] [address] [place], [address] Hematocrit (Bld) [Volume fraction] 37.4 % Normal 37-47 [facility] Comment on above: Performed By: #### L 500.2500, BTS, L100.0500 ####[facility] [address] [place], [address] Hemoglobin (Bld) [Mass/Vol] 12.9 g/dL Normal 12.0-15.0 [facility] Comment on above: Performed By: #### L 500.2500, BTS, L100.0500 ####[facility] [address] [place], [address] MCH (RBC) [Entitic mass] 32.7 pg High 27.0-32.0 [facility] Comment on above: Performed By: #### L 500.2500, BTS, L100.0500 ####[facility] [address] [place], [address] MCHC (RBC) [Mass/Vol] 34.5 g/dL Normal 32-36 [facility] Comment on above: Performed By: #### L 500.2500, BTS, L100.0500 ####[facility] [address] [place], [address] MCV (RBC) [Entitic vol] 94.9 fL Normal 81-99 [facility] Comment on above: Performed By: #### L 500.2500, BTS, L100.0500 ####[facility] [address] [place], [address] Platelet mean volume (Bld) [Entitic vol] 9.3 fL Normal 6.2-12.0 [facility] Comment on above: Performed By: #### L 500.2500, BTS, L100.0500 ####[facility] [address] [place], [address] Platelets (Bld) [#/Vol] 234 10*3/uL Normal 150-450 [facility] Comment on above: Performed By: #### L 500.2500, BTS, L100.0500 ####[facility] [address] [place], [address] RBC (Bld) [#/Vol] 3.94 10*6/uL Low 4.2-5.4 [facility] Comment on above: Performed By: #### L 500.2500, BTS, L100.0500 ####[facility] [address] [place], [address] RDW SD 42.1 fl Normal 35.1-43.9 [facility] Comment on above: Performed By: #### L 500.2500, BTS, L100.0500 ####[facility] [address] [place], [address] WBC (Bld) [#/Vol] 6.8 10*3/uL Normal 4.4-11.0 [facility] Comment on above: Performed By: #### L 500.2500, BTS, L100.0500 ####[facility] [address] [place], [address] Magnesiumon 10-09-2024 Magnesium [Mass/Vol] 1.9 mg/dL Normal 1.5-2.2 [facility] Comment on above: Performed By: #### L 501.9520, L501.5200 ####[facility] [address] [place], [address] Rock Room Worker Office Visit Reporton 10-09-2024 Rock Room Worker Office Visit Report [facility] [address], [address] [place] [address] OFFICE VISIT Date of Service: 10/09/24 MR#: [id number] Acct: [id number] Name: GRACE ELKINS Rep #: [id number] : 1965 Provider: Dr. Sarah Jenkins DO Age/Sex: 59/F Location: [facility] [place] Status: Signed Intake Vital Signs 06/30/24 09:12 10/09/24 13:31 Height 5 ft 2 in 5 ft 2 in Weight: 181 lb 6 oz BMI 33.1 BP 128/79 H Intake Visit Reasons: TRHBS Cysto possible left Ooph Coding Analyst Required: No Is patient in pain?: No Allergies bee venom protein (honey bee) (bee sting) Allergy (Severe, Verified 10/09/24 13:31) Swelling cortisone Allergy (Mild, Verified 10/09/24 13:31) Rash azithromycin (From z pack) Adverse Reaction (Mild, Verified 10/09/24 13:31) Rash Medications ???Medication ???Instructions ???Recorded ???Confirmed ???Type epinephrine 0.3 mg/0.3 mL 0.3 mg (0.3 mL) IM Q4H PRN 4 10/09/24 Rx injection, auto-injector (EpiPen anaphylaxis #2 ea 2-Chon) levothyroxine 100 mcg tablet 100 mcg PO DAILY 10/16/23 10/09/24 History ferrous sulfate 325 mg (65 mg 325 mg PO QODAY 05/01/24 10/09/24 History iron) tablet multivitamin 1 tab PO QDAY 05/01/24 10/09/24 Hi story zinc acetate 50 mg (zinc) capsule 50 mg PO QDAY 05/01/24 10/09/24 H istory Post menopausal: No Patient : No : No PFSH Medical History Wears glasses Depression Anxiety Arthritis Thyroid disease Heartburn Former smoker Anemia Hypothyroidism Surgical History Hx of tonsillectomy S/P appendectomy S/P right oophorectomy Family History Mother Heart disease Thyroid disorder Social History Smoking Status: Former smoker alcohol intake: current alcohol intake frequency: a few times a month substance use type: does not use frequency: 5-6 times per week seatbelt use: always do you feel safe at home: Yes additional social history: -Grant HPI TRHBS Cysto possible left Ooph Details: GRACE ELKINS is a 59 year old (1 section) who presents for discussion about heavy periods. She has not gone a year without a menses yet. has strong fhx of heavy periods and a lot of family have had to have ablation procedures. She has decided to proceed with hysterectomy for treatment due to the size of her uterus. Her EMB prior to traveling to [place] this summer was inconclusive and a repeat is planned for today. If normal we will proceed with a hysterectomy on 10/17/24. Ultrasound showed the following: REASON FOR EXAM: Abnormal uterine bleeding. TECHNIQUE: Transabdominal and transvaginal pelvic ultrasound COMPARISON: None. FINDINGS: Measurements: Uterus: 12.2 cm x 6.1 cm x 4.9 cm with a volume of 190.7 mL Endometrial Thickness: 11.3 mm. Endometrial thickening. Right Ovary: The patient is status post right oophorectomy. Left Ovary: 2.9 cm x 2.5 cm x 2 cm with a volume of 7.64 mL. TRANSABDOMINAL: Uterus: There are multiple small fibroids seen. The largest is in the fundal portion measuring 1.8 cm x 1.3 cm 1.4 cm. There is a nabothian cyst. Endometrium: Endometrium measures 11.3 mm. It is thickened. Right ovary: Status post right oophorectomy Left ovary: Normal size and echotexture. No large pelvic mass identified. Transvaginal sonography was performed to better visualize the endometrium. TRANSVAGINAL: Uterus: Anteverted. Small uterine fibroids. Endometrium: Endometrium is thickened and measures 11.3 mm. Right ovary: Status post right oophorectomy. Left ovary: Normal size and echotexture. Other adnexal findings: None. Cul-de-sac: No free intraperitoneal fluid identified. No tenderness. US/Pelvic w/ Transvaginal IMPRESSION: Status post right oophorectomy. Multiple small uterine fibroids. Endometrial thickening measuring 11.3 mm. History 4 Elective abortions Hx Para 4 Spontaneous abortions Hx # Term Pregnancies Ectopic pregnancies Hx # Pregnancies Multiple births # of living children Past Pregnancies Del. Date Name GA/Weeks Outcome Route Bth Weight Infant Gen Labor Lgth Anesthesia Del Locatn Provider FOB Unknown Lb (feb) Unknown Donya Unknown Ciara Unknown Chance ROS Const ROS Unobtainable: All systems reviewed are unremarkable except as noted in H Resp Resp: Reports system reviewed and no additional complaints, except as documented; Denies cough GI GI: Reports as per HPI Psych Psych: Reports system reviewed and no additional complaints, (more content not included)... Normal [facility] Surgery Specimen Level Ori 10-09-2024 Surgery Specimen Level IV ---- Patient Age/Sex Location Account Attending Physician ---- GRACE ELKINS 59/F LABSPEC [id number] Samantha Conklin ---- Specimen: [id number] Received: 10/09/24 Status: KEV Reddy Num: [id number] Spec Type: ENDOM BX/C Catrina Dr: Dr. Sarah Cardoso, HEADER OPERATION: Endometrial biopsy PRE-OP DIAGNOSIS: Menorrhagia TISSUE SUBMITTED: A- Endometrial lining ---- MICROSCOPIC DIAGNOSIS A. Endometrium, biopsy: - Few fragmented endometrial glands - see note. - Scant superficial endocervical epithelium. Note: No endometrial stroma is included. Scant tissue is present. Clinical correlation to assess the adequacy of this sampling is necessary. MICROSCOPIC DESCRIPTION Slides are reviewed. GROSS DESCRIPTION A. Received in formalin labeled with the patient's name and date of is a 1.5 x 1.5 x 0.1 cm aggregate of mucoid material and flecks of red tissue. Entirely submitted in 1 cassette. ND 10/09/2024 CPT:18269 ---- Patient Age/Sex Location Account Attending Physician ---- GRACE ELKINS 59/F LABSPEC [id number] Samantha Conklin ---- Signed (signature on file) Dr. Marisol Burns MD 10/10/24 1026 ---- Normal [facility] Comment on above: Performed By: #### P ALBERT #### [facility] [address] [place], [address] Thyroid Stim Hormone (TSH)on 10-09-2024 TSH 0.302 uIU/mL Normal 0.300-4.200 [facility] Comment on above: Performed By: #### L 501.9520, L501.5200 ####[facility] [address] [place], [address] Type AND Screenon 10-09-2024 Ab SCREEN GEL Negative Normal [facility] Comment on above: Order Comment: [id number] C Performed By: #### L 500.2500, BTS, L100.0500 ####[facility] [address] [place], [address] Office Visiton 10-02-2024 Follow-up visit [id number] ElkinsGrace 1965 F Date Provider Department Center 10/02/2024 [id number] PACHECO [facility] Family History Problem Relation Age of Onset Diabetes Mother Rheumatologic disease Mother Family Status - Relation Status Age at Mother Father Level of Service:[address] [place] OFFICE/OUTPATIENT ESTABLISHED MOD MDM 30 MIN Reason for Visit and Comments: Eye Problem [43] - Twitching Other [0] - Spot on nose Menopause [749542] - Trouble sleeping Health Maintenance [872] - Thyroid Nodule Ultrasound- thyroid specialist orders patient see's next week Mammogram- agrees Normal [facility] Progress Noteon 10-02-2024 Progress Note 10/02/2024 Grace Elkins (: 1965) is a 59 y.o. female , Established patient, here for evaluation of the following chief complaint(s): Eye Problem (Twitching ), Other (Spot on nose), Menopause (Trouble sleeping ), and Health Maintenance (Thyroid Nodule Ultrasound- thyroid specialist orders patient see's next week /Mammogram- agrees ) I obtained verbal consent from the patient and/or patient?s guardian to use ambient listening technology during this encounter before the ambient technology was engaged. Assessment/Plan 1. Eyelid twitch (R25.3) - acute, improving - Patient reports three weeks of eye twitching, recently improved - Advised to follow up with eye doctor regarding new glasses prescription 2. Thyroid nodule (E04.1) - Chronic, stable - Follow-up with endocrinology as directed - Scheduled for lab visit to check TSH and T4 free levels 3. Hypothyroidism, unspecified type (E03.9) - Chronic, stable -Follow-up with endocrinology as directed - Will check thyroid function tests at upcoming lab visit 4. Screening for lipoid disorders (Z13.220) - Cholesterol check added to upcoming lab visit 5. 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 Lesion of skin of nose (L98.9) - Examined spot on nose, no concerning features noted - Will continue to monitor for changes 7. Uterine leiomyoma, unspecified location (D25.9) - chronic, stable - Patient scheduled for hysterectomy in two weeks - Enlarged uterus with multiple fibroids noted - Heavy menstrual bleeding reported, though last two periods were skipped 8. Iron deficiency (E61.1) - chronic, stable - Patient taking iron supplements every other day - Iron studies added to upcoming lab panel 9. Screening for diabetes mellitus (Z13.1) - Diabetes screening added to upcoming lab visit 10. Anxiety - Discussed that hormonal changes can contribute to the symptoms - Offered medication for management and declines at this time - Discussed signs and symptoms warranting follow up in the office- verbalized understanding. I performed the above service AI scribed on my behalf, and I have reviewed and confirmed the accuracy and completeness of the medical documentation. Follow up for fasting lab visit and then 6 months for physical. Subjective History of Present Illness Grace Elkins, a 59-year-old female, presents to discuss several health concerns. The patient reports experiencing left eye twitching for three weeks, which has recently improved. She mentions that her new glasses prescription may be too strong, causing strain. She has a history of uterine fibroids and is scheduled for a hysterectomy in two weeks. The patient reports that her uterus is enlarged and tilted, with multiple fibroids. She has been experiencing heavy menstrual bleeding, though she has skipped her last two periods. She reports taking iron supplements every other day due to iron deficiency related to her heavy bleeding. She is also experiencing menopausal symptoms including hot flashes, sleep disturbances, increased depression, and anxiety. The patient is concerned about a spot on her nose that has been present for about a year and has slightly enlarged. The patient mentions that she has a bee sting allergy and needs a refill on her EpiPen. She has not needed to use the previous EpiPen. She is also requesting to get set up for a lab visit to get her fasting blood work completed prior to her physical. She continues to take levothyroxine as prescribed for her hypothyroidism. Is requesting to have her thyroid levels checked prior to her seeing her hoof and shoe inspector next week. The history of thyroid nodules as well. Obtains thyroid ultrasounds via her hoof and shoe inspector. Review of Systems Constitutional: Negative for chills and fever. Respiratory: Negative for shortness of breath. Cardiovascular: Negative for chest pain. Skin: Negative for color change and wound. Psychiatric/Behavioral : The patient is nervous/anxious. Objective Vitals: 10/02/24 1532 BP: 118/74 Pulse: 63 SpO2: 97% Weight: 181 lb 12.8 oz (82.5 kg) Height: 5' 3 (1.6 m) Body mass index is 32.2 kg/m?. Physical Exam Constitutional: General: She is not in acute distress. Appearance: She is not ill-appearing or diaphoretic. HENT: Nose: Cardiovascular: Rate and Rhythm: Normal rate and regular rhythm. Heart sounds: Normal heart sounds. No murmur heard. No friction rub. Pulmonary: Effort: Pulmonary effort is normal. Breath sounds: Normal breath sounds. No wheezing, rhonchi or rales. Musculoskeletal: Right lower leg: No edema. Left lower leg: No edema. Skin: General: Skin is warm and dry. Coloration: Skin is not pale. Findings: No erythema or rash. Neurological: Mental Status: She is alert and oriented to person, place, and time. Psychiatric: Mood and Affect: Mood normal. Behavior: Behavior normal. Thought Content: Thou (more content not included)... Normal [facility] Progress Note eyey Normal [facility] 36on 09-06-2024 36 Rx sent. Follow up a s scheduled. [facility] 36 This was just sent. Not sure why there are 2 [facility] 36 Prescription Request : LEVOTHYROXINE 100 MCG TABLET Last medication check: 04/14/24 Last physical exam: 04/09/23 Next scheduled appointment: 10/13/24 Last date of refill on this medication 03/05/22 historical provider Pt unable to get hold of her endo dr and wants our office to fill. Normal [facility] 36 Patient calling for refill as well because they cannot get a hold of her endo provider. Please advise. [facility] Rock Room Worker Office Visit Reporton 06-30-2024 Rock Room Worker Office Visit Report [facility] [address], [address] [place] [address] OFFICE VISIT Date of Service: 06/30/24 MR#: [id number] Acct: [id number] Name: GRACE ELKINS Rep #: [id number] : 1965 Provider: Dr. Sarah Jenkins DO Age/Sex: 59/F Location: [facility] [place] Status: Signed Intake Vital Signs 05/01/24 09:52 06/30/24 09:11 06/30/24 09:12 Height 5 ft 2 in 5 ft 2 in 5 ft 2 in Weight: 185 lb 179 lb 2 oz BMI 33.8 32.7 BP 123/79 H 133/81 H Intake Visit Reasons: EMB Coding Analyst Required: No Is patient in pain?: No Allergies bee venom protein (honey bee) (bee sting) Allergy (Severe, Verified 06/30/24 09:11) Swelling cortisone Allergy (Mild, Verified 06/30/24 09:11) Rash Medications ???Medication ???Instructions ???Recorded ???Confirmed ???Type epinephrine 0.3 mg/0.3 mL 0.3 mg (0.3 mL) IM Q4H PRN 4 06/30/24 Rx injection, auto-injector (EpiPen anaphylaxis #2 ea 2-Chon) levothyroxine 100 mcg tablet 100 mcg PO DAILY 10/16/23 06/30/24 History ferrous sulfate 325 mg (65 mg 325 mg PO QDAY 05/01/24 06/30/24 H istory iron) tablet multivitamin 1 tab PO QDAY 05/01/24 06/30/24 Hi story zinc acetate 50 mg (zinc) capsule 50 mg PO QDAY 05/01/24 06/30/24 H istory Post menopausal: No Patient : No : No PFSH PFSH Medical History Anemia Hypothyroidism Surgical History S/P appendectomy S/P right oophorectomy Family History Mother Heart disease Thyroid disorder Social History Smoking Status: Former smoker alcohol intake: current alcohol intake frequency: a few times a month substance use type: does not use frequency: 5-6 times per week seatbelt use: always do you feel safe at home: Yes additional social history: -Grant History 4 Elective abortions Hx Para 4 Spontaneous abortions Hx # Term Pregnancies Ectopic pregnancies Hx # Pregnancies Multiple births # of living children Past Pregnancies Del. Date Name GA/Weeks Outcome Route Bth Weight Infant Gen Labor Lgth Anesthesia Del Locatn Provider FOB Unknown Lb (feb) Unknown Donya Unknown Ciara Unknown Chance HPI EMB Details: GRACE ELKINS is a 59 year old who presents for endometrial biopsy for perimenopausal bleeding. Her ultrasound showed a 12 cm uterus with an 11 mm endometrium. menopause labs were not in range with menopause. PROCEDURE: PELVIC W/ TRANSVAGINAL REASON FOR EXAM: Abnormal uterine bleeding. TECHNIQUE: Transabdominal and transvaginal pelvic ultrasound COMPARISON: None. FINDINGS: Measurements: Uterus: 12.2 cm x 6.1 cm x 4.9 cm with a volume of 190.7 mL Endometrial Thickness: 11.3 mm. Endometrial thickening. Right Ovary: The patient is status post right oophorectomy. Left Ovary: 2.9 cm x 2.5 cm x 2 cm with a volume of 7.64 mL. TRANSABDOMINAL: Uterus: There are multiple small fibroids seen. The largest is in the fundal portion measuring 1.8 cm x 1.3 cm 1.4 cm. There is a nabothian cyst. Endometrium: Endometrium measures 11.3 mm. It is thickened. Right ovary: Status post right oophorectomy Left ovary: Normal size and echotexture. No large pelvic mass identified. Transvaginal sonography was performed to better visualize the endometrium. TRANSVAGINAL: Uterus: Anteverted. Small uterine fibroids. Endometrium: Endometrium is thickened and measures 11.3 mm. Right ovary: Status post right oophorectomy. Left ovary: Normal size and echotexture. Other adnexal findings: None. Cul-de-sac: No free intraperitoneal fluid identified. No tenderness. US/Pelvic w/ Transvaginal IMPRESSION: Status post right oophorectomy. Multiple small uterine fibroids. Endometrial thickening measuring 11.3 mm. ROS Const ROS Unobtainable: All systems reviewed are unremarkable except as noted in H Resp Resp: Reports system reviewed and no additional complaints, except as documented; Denies cough GI GI: Reports as per HPI Psych Psych: Reports system reviewed and no additional complaints, except as documented Exam Const General: cooperative, healthy appearing, comfortable and no acute distress Resp Effort Inspection: normal respiratory effort General: bimanual renal exam normal bilaterally External Female Exam: normal appearance of the urethra Urethra: normal appearance of the urethra Speculum Exam - Vagina: normal appearance of the vagina Speculum Exam - Cervix: normal appearance of the cervix Bimanual Exam- Adnexa, other: no (more content not included)... Normal [facility] Surgery Specimen Level Ori 06-30-2024 Surgery Specimen Level IV ---- Patient Age/Sex Location Account Attending Physician ---- GRACE ELKINS 59/F LABSPEC [id number] Samantha Conklin ---- Specimen: [id number] Received: 06/30/24 Status: KEV Reddy Num: [id number] Spec Type: ENDOM BX/C Subm Dr: Dr. Sarah Cardoso, [facility] AFFA[facility] OPERATION: Polypectomy, endometrial bleeding PRE-OP DIAGNOSIS: Cervical polyp TISSUE SUBMITTED: A- Cervical polyp, B- Endometrial lining ---- MICROSCOPIC DIAGNOSIS A. Cervix, polyp, polypectomy: * Benign endocervical mucosal polyp with marked active chronic inflammation. B. Endometrium, biopsy: * Polypoid fragments of benign endocervical mucosa. * Exfoliated squamous and columnar cervical epithelial cells. * No endometrium seen. MICROSCOPIC DESCRIPTION Slides are reviewed. GROSS DESCRIPTION A. Received in formalin in a container labeled with the patient's name, date of , and cervical polyp is a white-red, wispy fragment of soft tissue with attached blood clot material measuring 1.0 x 0.5 x 0.3 cm together. Submitted in toto in A1. B. Received in formalin in a container labeled with the patient's name, date of , and EMB are multiple red-ramsey fragments of soft tissue admixed with blood and mucus measuring 1.7 x 1.3 x 0.4 cm in aggregate. Submitted in toto in B1. [facility] 06-30-2024 CPT:02977o5 ---- Patient Age/Sex Location Account Attending Physician ---- GRACE ELKINS 59/F LABSPEC [id number] Samantha Conklin ---- Signed (signature on file) Dr. Marisol Burns MD 07/10/24 1125 ---- Normal [facility] Comment on above: Performed By: #### P ALBERT #### [facility] [address] [place], [address] Pelvic w/ Transvaginalon Pelvic w/ Transvaginal [facility] Imaging Services [address] [place] [address] Pelvic w/ Transvaginal MR#: [id number] Acct: [id number] Name: GRACE ELKINS Rep #: [id number] : 1965 F 59 From: Joseluis dockery MD PCP: DUNCAN Rodriguez Status: REG CLI Study: Pelvic w/ Transvaginal Date of Exam: 05/12/24 Exam# [id number] Ordering Dr: Sarah Cardoso DO PROCEDURE: PELVIC W/ TRANSVAGINAL REASON FOR EXAM: Abnormal uterine bleeding. TECHNIQUE: Transabdominal and transvaginal pelvic ultrasound COMPARISON: None. FINDINGS: Measurements: Uterus: 12.2 cm x 6.1 cm x 4.9 cm with a volume of 190.7 mL Endometrial Thickness: 11.3 mm. Endometrial thickening. Right Ovary: The patient is status post right oophorectomy. Left Ovary: 2.9 cm x 2.5 cm x 2 cm with a volume of 7.64 mL. TRANSABDOMINAL: Uterus: There are multiple small fibroids seen. The largest is in the fundal portion measuring 1.8 cm x 1.3 cm 1.4 cm. There is a nabothian cyst. Endometrium: Endometrium measures 11.3 mm. It is thickened. Right ovary: Status post right oophorectomy Left ovary: Normal size and echotexture. No large pelvic mass identified. Transvaginal sonography was performed to better visualize the endometrium. TRANSVAGINAL: Uterus: Anteverted. Small uterine fibroids. Endometrium: Endometrium is thickened and measures 11.3 mm. Right ovary: Status post right oophorectomy. Left ovary: Normal size and echotexture. Other adnexal findings: None. Cul-de-sac: No free intraperitoneal fluid identified. No tenderness. US/Pelvic w/ Transvaginal IMPRESSION: Status post right oophorectomy. Multiple small uterine fibroids. Endometrial thickening measuring 11.3 mm. Reading Location: [id number] CC: DUNCAN Pacheco; Dr. Sarah Cardoso DO Activities Concierge: Signed Normal [facility] Estradiolon 05-01-2024 ESTRADIOL 62.0 pg/mL Normal [facility] Comment on above: Result Comment: NORM AL REFERENCE RANGES FEMALE FOLLICULAR 21.4 - 164.8 pg/mL MID-CYCLE PEAK 49.9 - 367.2 pg/mL LUTEAL 40.2 - 259.0 pg/mL POST-MENOPAUSAL ON MHT <11.0 - 462.1 pg/mL NOT ON MHT <11.0 - 58.3 pg/mL MALE <11.0 - 52.5 pg/mL NOTE: [employer] HAS CONFIRMED THE DRUG FULVETRANT (FASLODEX) MAY CAUSE FALSELY ELEVATED ESTRADIOL RESULTS WHEN USING THIS TEST METHOD. IF PATIENT IS TAKING FULVESTRANT AN ALTERNATIVE METHOD SHOULD BE USED TO DETERMINE ESTRADIOL CONCENTRATION. Performed By: #### L 3100.5125, L3100.5170, L3300.1750 #### [facility] [address] [place], [address] Estradiol measurementOrdered By: Sarah Blanco on 05-01-2024 Estradiol (E2) Level 62.0 pg/mL [facility] Comment on above: NORMAL REFERENCE RAN GES FEMALE FOLLICULAR 21.4 - 164.8 pg/mL MID-CYCLE PEAK 49.9 - 367.2 pg/mL LUTEAL 40.2 - 259.0 pg/mL POST-MENOPAUSAL ON MHT <11.0 - 462.1 pg/mL NOT ON MHT <11.0 - 58.3 pg/mL MALE <11.0 - 52.5 pg/mL NOTE:[employer] HAS CONFIRMED THE DRUG FULVETRANT (FASLODEX) MAY CAUSE FALSELY ELEVATED ESTRADIOL RESULTS WHEN USING THIS TEST METHOD. IF PATIENT IS TAKING FULVESTRANT AN ALTERNATIVE METHOD SHOULD BE USED TO DETERMINE ESTRADIOL CONCENTRATION. Follicle Stimulating Hormone on 05-01-2024 FSH 6.6 mIU/mL Normal [facility] Comment on above: Result Comment: NORMAL REFERENCE RANGES FEMALE FOLLICULAR 2.3 - 12.6 mIU/mL MID-CYCLE PEAK 5.2 - 17.5 mIU/mL LUTEAL 1.7 - 12.9 mIU/mL POST-MENOPAUSAL ON MHT 5.9 - 72.8 mIU/mL NOT ON MHT 12.7 - 132.2 mlU/mL MALE 0.7 - 10.8 mIU/mL Performed By: #### L 3100.5125, L3100.5170, L3300.1750 #### [facility] [address] [place], [place], [id number] Follicle stimulating hormone (FSH) levelOrdered By: Sarah Blanco on 05-01-2024 Follicle Stimulating Hormone 6.6 mIU/mL [facility] Comment on above: NORMAL REFERENCE RAN GES FEMALE FOLLICULAR 2.3 - 12.6 mIU/mL MID-CYCLE PEAK 5.2 - 17.5 mIU/mL LUTEAL 1.7 - 12.9 mIU/mL POST-MENOPAUSAL ON MHT 5.9 - 72.8 mIU/mL NOT ON MHT 12.7 - 132.2 mlU/mL MALE 0.7 - 10.8 mIU/mL Luteinizing Hormoneon 2024 LH 8.9 mIU/mL Normal [facility] Comment on above: Result Comment: NORMAL REFERENCE RANGES FEMALE FOLLICULAR 1.9 - 26.2 mIU/mL MID-CYCLE PEAK 22.8 - 76.1 mIU/mL LUTEAL 0.6 - 16.6 mIU/mL POST-MENOPAUSAL ON MHT 1.1 - 52.4 mIU/mL NOT ON MHT 8.6 - 61.8 mIU/mL MALE 1.2 - 10.6 mIU/mL Performed By: #### L 3100.5125, L3100.5170, L3300.1750 #### [facility] [address] [place], [place], [id number] Luteinizing hormone measurem entOrdered By: Sarah Blanco on 05-01-2024 Luteinizing Hormone 8.9 mIU/mL [facility] Comment on above: NORMAL REFERENCE RAN GES FEMALE FOLLICULAR 1.9 - 26.2 mIU/mL MID-CYCLE PEAK 22.8 - 76.1 mIU/mL LUTEAL 0.6 - 16.6 mIU/mL POST-MENOPAUSAL ON MHT 1.1 - 52.4 mIU/mL NOT ON MHT 8.6 - 61.8 mIU/mL MALE 1.2 - 10.6 mIU/mL Rock Room Worker Office Visit Reporton 05-01-2024 Rock Room Worker Office Visit Report [facility] [address], [address] [place] [address] OFFICE VISIT Date of Service: 05/01/24 MR#: [id number] Acct: [id number] Name: GRACE ELKINS Rep #: [id number] : 1965 Provider: Dr. Sarah Jenkins DO Age/Sex: 59/F Location: [facility] Status: Signed Intake Vital Signs 10/16/23 20:15 05/01/24 09:52 Height 5 ft 2 in 5 ft 2 in Weight: 185 lb BMI 33.8 BP 123/79 H Intake Visit Reasons: MENORRHAGIA WITH REGULAR MENSES Coding Analyst Required: No Is patient in pain?: No Allergies bee venom protein (honey bee) (bee sting) Allergy (Severe, Verified 10/16/23 21:54) Swelling cortisone Allergy (Mild, Verified 10/16/23 20:19) Rash Medications ???Medication ???Instructions ???Recorded ???Confirmed ???Type epinephrine 0.3 mg/0.3 mL 0.3 mg (0.3 mL) IM Q4H PRN 4 05/01/24 Rx injection, auto-injector (EpiPen anaphylaxis #2 ea 2-Chon) levothyroxine 100 mcg tablet 100 mcg PO DAILY 10/16/23 05/01/24 History ferrous sulfate 325 mg (65 mg 325 mg PO QDAY 05/01/24 05/01/24 H istory iron) tablet multivitamin 1 tab PO QDAY 05/01/24 05/01/24 Hi story zinc acetate 50 mg (zinc) capsule 50 mg PO QDAY 05/01/24 05/01/24 H istory Post menopausal: No Patient : No : No PFSH Medical History (Updated 05/01/24 @ 13:[address] Sarah Cardoso DO) Anemia Hypothyroidism Surgical History (Updated 05/01/24 @ 10:07 by Joann Bueno) S/P appendectomy S/P right oophorectomy Family History Mother Heart disease Thyroid disorder Social History (Updated 05/01/24 @ 10:08 by Joann Dooley Smoking Status: Former smoker alcohol intake: current alcohol intake frequency: a few times a month substance use type: does not use frequency: 5-6 times per week seatbelt use: always do you feel safe at home: Yes additional social history: -Grant HPI MENORRHAGIA WITH REGULAR MENSES Details: GRACE ELKINS is a 59 year old (1 section) who presents for discussion about heavy periods. She has not gone a year without a menses yet. has strong fhx of heavy periods and a lot of family have had to have ablation procedures. Female Reproductive History Hx Age of Menarche: 14 Last Menstrual Period: 03/17/24 Cycle Length: 21-35 Bleeding Duration: 7 Frequency of changing protection: often Associated symptoms: heavy periods Questions: metorrhagia: Yes, sexually active: Yes, dyspareunia: No and PCB: No Menopausal Symptoms: Yes weight change History 4 Elective abortions Hx Para 4 Spontaneous abortions Hx # Term Pregnancies Ectopic pregnancies Hx # Pregnancies Multiple births # of living children Past Pregnancies Del. Date Name GA/Weeks Outcome Route Bth Weight Infant Gen Labor Lgth Anesthesia Del Locatn Provider FOB Unknown Lb (dec) Unknown Donya Unknown Ciara Unknown Chance ROS Const ROS Unobtainable: All systems reviewed are unremarkable except as noted in H Resp Resp: Reports system reviewed and no additional complaints, except as documented; Denies cough GI GI: Reports as per HPI Psych Psych: Reports system reviewed and no additional complaints, except as documented Exam Const General: cooperative, healthy appearing, comfortable and no acute distress Resp Effort Inspection: normal respiratory effort General: bimanual renal exam normal bilaterally External Female Exam: normal appearance of the urethra Urethra: normal appearance of the urethra Speculum Exam - Vagina: normal appearance of the vagina Speculum Exam - Cervix: normal appearance of the cervix Bimanual Exam- Adnexa, other: normal adnexae and normal Pelvic Support: normal Skin General: no rashes or lesions noted Psych Appearance: grossly normal Speech and Movement: speech and movement normal Coding Level of Care Code Off vis,new,level 4 Diagnoses Hypothyroidism E03.9 Menorrhagia N92.0 Assessment and Plan Assessment and Plan (1) Hypothyroidism: Status: Acute (2) Menorrhagia: Status: Acute Orders: Orders Pelvic w/ Transvaginal Today N93.9 - Abnormal uterine and vaginal bleeding, unspecified Follicle Stimulating Hormone Today N93.9 - Abnormal uterine and vaginal bleeding, unspecified Luteinizing Hormone Today N93.9 - Abnormal uterine and vaginal bleeding, unspecified Estradiol Today N93.9 - Abnormal uterine and vaginal bleeding, unspecified Plan will start with an ultrasound and lab work plan to rto for endometrial biopsy and discuss treatment options. 05/01/24 1303 Date Sarah Cardoso DO Costavares Signatur (more content not included)... [facility] 36on 04-14-2024 [address] [facility] 36 Rx sent per request. [facility] 36 Mere wanted to rel ay the name of the topical cream that was discussed at her visit today, Acyclovir topical cream. Could you send this in so we can see if her insurance will cover it. [facility] Office Visiton 04-14-2024 Follow-up visit [id number] Grace Elkins 1965 F Date Provider Department Center 04/14/2024 JAMES CASTRO [facility] Family History Problem Relation Age of Onset Diabetes Mother Rheumatologic disease Mother Family Status - Relation Status Age at Mother Father Level of Service:32479 [place] OFFICE/OUTPATIENT ESTABLISHED MOD MDM 30 MIN Reason for Visit and Comments: Medication Check [0829012970] Health Maintenance [872] - HIV/Hep C screen- declines Hep B- declines Hypothyroidism [143] Iron Deficiency [685] GERD [004280] [facility] Progress Noteon 04-14-2024 Progress Note Patient verified by last name and . [facility] Progress Note 04/14/2024 Grace Elkins (: 1965) is a 59 y.o. female , Established patient, here for evaluation of the following chief complaint(s): Medication Check, Health Maintenance (HIV/Hep C screen- declines /Hep B- declines ), Hypothyroidism, Iron Deficiency, and GERD ASSESSMENT/PLAN: 1. Gastroesophageal reflux disease without esophagitis - omeprazole OTC (PriLOSEC OTC) 20 MG EC tablet; Take 1 tablet (20 mg) by mouth Daily as needed (GERD). Do not crush, chew, or split., Starting 04/14/2024, Until 04/14/2025 at 2359, OTC - Stable. Will use Omeprazole as needed. Will continue current treatment plan. 2. Hypothyroidism, unspecified type - Stable. Follow up with specialist as directed. 3. Thyroid nodule - Stable. Follow up with specialist as directed. 4. Insomnia, unspecified type - Symptoms stable. 5. Iron deficiency - Stable with iron supplementation. Will continue current treatment plan. 6. Arthritis of both hips - Stable. Follow up with specialist as directed. 7. Chronic left hip pain - Stable. Follow up with specialist as directed. 8. Multiple renal cysts - Symptoms stable. No additional workup needed at this time. 9. Recurrent cold sores - Symptoms stable. Will check about different medication to have on standby. 10. Influenza vaccine refused Follow up in about 6 months (around 10/12/2024) for WFE and fasting blood work. SUBJECTIVE/OBJECTIVE: LETTY Severino presents today for follow up on her chronic health conditions. GERD: States symptoms are stable. Has to watch what she eats. Would like a medication she can take as needed for days when her symptoms are not as well controlled. Denies abdominal pain or dark black tarry stools. Hypothyroidism/Thyroid Nodule: Actively follows up with endocrinology, Dr. Ambrocio. Continues to take her Levothyroxine. Had an ultrasound of her thyroid in January 2022 and was told findings were stable. Has her thyroid levels monitored by endocrinology. Had thyroid ultrasound in July of 2023 and was told everything was stable. Insomnia: Will average 5-6 hour stretches at a time. States symptoms are worse during the holidays. Wanted to do counseling and never did this. Feels she is doing well overall. Iron Deficiency: Currently on an iron supplement every other day and then daily when on her menstrual cycle. Levels last checked on 10/29/23. Component Ref Range & Units 5 mo ago 2 yr ago IRON, TOTAL 45 - 160 mcg/dL 196 High 124 IRON BINDING CAPACITY 250 - 450 mcg/dL (calc) 388 375 % SATURATION 16 - 45 % (calc) 51 High 33 Component Ref Range & Units 5 mo ago 2 yr ago FERRITIN 16 - 232 ng/mL 11 Low 9 Low Component Ref Range & Units 5 mo ago 2 yr ago TRANSFERRIN 188 - 341 mg/dL 301 278 Chronic Hip Pain/Arthritis: No longer taking the Meloxicam because she read the side effects of the medication and it made her afraid. Weather fluctuations aggravate her symptoms. Taking hot baths helps. Will take Ibuprofen as needed and this is helpful. Has followed up with ortho and has been doing some PT. States next step would be surgery. Renal Cysts: Last renal ultrasound was in July 2023 with stable findings. No cysts noted at that time. Recurrent Cold Sores: Had a reaction to Valtrex and had a prescription for Zovirax ointment but it was not covered by insurance. Will check with her daughter and see what she uses because she took one of her medications once and said she tolerated it well. Health Maintenance: Mammogram: 11/03/23- normal findings. Last pap smear was 10/08/23- normal findings. Declines a Tdap vaccination. Declines to be vaccinated for Hep B. Declines screening for HIV and Hep C. Vaccinated for COVID-19 x2 with most recent dose on 07/27/20- declines additional doses. Colon cancer screening: Cologuard on 05/10/23- normal findings. Is fully vaccinated for shingles. Declines a flu vaccination. Review of Systems Constitutional: Negative for chills and fever. Respiratory: Negative for chest tightness and shortness of breath. Cardiovascular: Negative for chest pain. Gastrointestinal: Negative for abdominal distention, abdominal pain and blood in stool. Endocrine: Negative for cold intolerance and heat intolerance. Genitourinary: Negative for hematuria. Musculoskeletal: Positive for arthralgias. Skin: Negative for color change, pallor, rash and wound. Vitals: 04/14/24 0759 BP: 131/84 BP Location: Left arm Patient Position: Sitting Pulse: 64 SpO2: 98% Weight: 182 lb (82.6 kg) Height: 5' 3 (1.6 m) Body mass index is 32.24 kg/m?. Physical Exam Constitutional: General: She is not in acute distress. Appearance: She is not ill-appearing or diaphoretic. Neck: Thyroid: No thyromegaly. Cardiovascular: Rate and Rhythm: Normal rate and regular rhythm. Pulses: Normal pulses. Heart sounds: Normal heart sounds. No murmur heard. No friction rub. Pulmonary: Effort: Pulmonary effort is normal. (more content not included)... Normal [facility] 36on 04-10-2024 36 Prior auth denied fo r acyclovir ointment, she can purchase out of pocket for $21 at her pharmacy though. If she'd rather try something else let us know! Left a message to return call. [facility] 36on 04-05-2024 36 Prior auth denied fo r acyclovir ointment, she can purchase out of pocket for $21 at her pharmacy though. If she'd rather try something else let us know! Left a message to return call. Normal [facility] 36on 04-04-2024 36 Prior auth denied fo r acyclovir ointment, she can purchase out of pocket for $21 at her pharmacy though. If she'd rather try something else let us know! Left a message to return call. [facility] 37on 04-03-2024 37 [facility] [address] [place] [address] P: [facility] Office Visiton 04-03-2024 Follow-up visit [id number] Grace Elkins 1965 F Date Provider Department Center 04/03/2024 [id number] PACHECO [facility] Family History Problem Relation Age of Onset Diabetes Mother Rheumatologic disease Mother Family Status - Relation Status Age at Mother Father Level of Service:90010 [place] OFFICE/OUTPATIENT ESTABLISHED MOD MDM 30 MIN Reason for Visit and Comments: Referral [825] - To track watchman Allergic Reaction [052861] - Valacyclovir - caused heart racing and hives This last weekend heart racing, diarrhea Health Maintenance [872] - Pcv 20 vaccine- refuse Flu vaccine- refuse 3rd covid vaccine- will not get anymore [facility] Progress Noteon 04-03-2024 Progress Note Patient verified by last name and date of . [facility] Progress Note 04/03/2024 Grace Elkins (: 1965) is a 59 y.o. female , Established patient, here for evaluation of the following chief complaint(s): Referral (To track watchman), Allergic Reaction (Valacyclovir - caused heart racing and hives/This last weekend heart racing, diarrhea), and Health Maintenance (Pcv 20 vaccine- refuse/Flu vaccine- refuse/3rd covid vaccine- will not get anymore ) ASSESSMENT/PLAN: 1. Recurrent cold sores - acyclovir (Zovirax) 5 % ointment; Apply 5 times daily for 4 days. Space applications every 3 hours., Normal - Will stop oral Acyclovir and use topical ointment instead. 2. Medication reaction, initial encounter - Will stop oral Acyclovir and use topical ointment instead. 3. Menorrhagia with regular cycle - External referral to Gynecology 4. Influenza vaccine refused Follow up in 11 days (on 04/14/2024) for Next scheduled follow-up. SUBJECTIVE/OBJECTIVE: LETTY Severino presents today to discuss concerns regarding not tolerating her Valtrex well anymore- has taken it a couple of times in the past several months and each time she has noticed the sensation her heart is racing, will break out in hives, and have loose stools. Has not had any recurrent of symptoms after stopping the medication. Is also requesting to have a referral to see an Rock Room Worker. States she has a history of heavy menstrual cycles and feels they have been getting heavier with a lot of cramping. States her cycles are regular. Health Maintenance: Declines a flu vaccination. Declines a pneumococcal vaccination. Vaccinated for COVID-19 x2 with most recent dose on 07/27/20- declines additional doses. Declines screening for HIV and Hep C. Review of Systems Respiratory: Negative for chest tightness and shortness of breath. Cardiovascular: Positive for palpitations. Negative for chest pain. Genitourinary: Positive for menstrual problem. Vitals: 04/03/24 1252 BP: 132/81 Pulse: 67 SpO2: 97% Weight: 183 lb 6.4 oz (83.2 kg) Height: 5' 3 (1.6 m) Body mass index is 32.49 kg/m?. Physical Exam Constitutional: General: She is not in acute distress. Appearance: She is not ill-appearing or diaphoretic. Cardiovascular: Rate and Rhythm: Normal rate and regular rhythm. Heart sounds: Normal heart sounds. No murmur heard. No friction rub. Pulmonary: Effort: Pulmonary effort is normal. Breath sounds: Normal breath sounds. No wheezing, rhonchi or rales. Musculoskeletal: Cervical back: Neck supple. Skin: General: Skin is warm and dry. Coloration: Skin is not pale. Findings: No erythema or rash. Neurological: Mental Status: She is alert and oriented to person, place, and time. Psychiatric: Mood and Affect: Mood normal. Behavior: Behavior normal. Thought Content: Thought content normal. Judgment: Judgment normal. Data Reviewed Labs: Imaging/Testing: An electronic signature was used to authenticate this note. James Pacheco APRN - LABOR ECONOMICS PROFESSOR 04/03/2024 1:26 PM Normal [facility] DBT Breast - bilateral scree [facility] 11-03-2023 No mammographic evidence of malignancy. ASSESSMENT: Category 1 Negative RECOMMENDATION: Routine screening mammogram in 1 year. Bilateral CANCER RISK ASSESSMENT: This risk assessment is based on patient provided information collected in a risk survey taken at the time of this examination. LIFETIME BREAST CANCER RISK: Neema 8: 5.53% - If greater than or equal to 20%, consider annual mammogram and annual screening Breast MRI or follow up in high risk clinic. Is the patient at elevated risk based on the HBOC criteria? No (Hereditary Breast and Ovarian Cancer) - If Yes, consider genetic counseling and testing with high risk follow up Is the patient at elevated risk based on the Hahn Syndrome criteria? No - If Yes, consider genetic counseling and testing with high risk follow up. Report Dictated on Electronically Signed By: Eduardo Logan MD Electronically Signed Date/Time: 11/03/2023 8:14 AM [facility] [employer] [facility] 1965 [id number] Exam Date/Time: 11/03/2023 07:36 Procedure: BI MAMMOGRAM SCREENING TOMOSYNTHESIS BILATERAL Ordering Provider: PACHECO HOLLY Reason For Exam: PATIENT CANCER HISTORY: No Personal History of Cancer FAMILY CANCER HISTORY: No Family History of Cancer Image views: 2D Bilateral CC and MLO views were acquired. 3D Bilateral CC and MLO views were acquired. Images were reviewed with CAD. Markings on images: BB's = Nipples; skin lesions [place] = Palpable Line = Scar COMPARISON: 2021; 2019 TISSUE DENSITY: BIRADS B - There are scattered fibroglandular densities. FINDINGS: No suspicious masses, architectural distortions or suspiciously clustered microcalcifications are identified. There are no significant changes when compared with prior studies. [facility] Eduardo Logan MD - 11/03/2023 Patient Name: GRACE ELKINS : 1965 [id number] Exam Date/Time: 11/03/2023 07:36 Procedure: BI MAMMOGRAM SCREENING TOMOSYNTHESIS BILATERAL Ordering Provider: PACHECO HOLLY Reason For Exam: PATIENT CANCER HISTORY: No Personal History of Cancer FAMILY CANCER HISTORY: No Family History of Cancer Image views: 2D Bilateral CC and MLO views were acquired. 3D Bilateral CC and MLO views were acquired. Images were reviewed with CAD. Markings on images: BB's = Nipples; skin lesions [place] = Palpable Line = Scar COMPARISON: 2021; 2019 TISSUE DENSITY: BIRADS B - There are scattered fibroglandular densities. FINDINGS: No suspicious masses, architectural distortions or suspiciously clustered microcalcifications are identified. There are no significant changes when compared with prior studies. IMPRESSION: No mammographic evidence of malignancy. ASSESSMENT: Category 1 Negative RECOMMENDATION: Routine screening mammogram in 1 year. Bilateral CANCER RISK ASSESSMENT: This risk assessment is based on patient provided information collected in a risk survey taken at the time of this examination. LIFETIME BREAST CANCER RISK: Tyrer-Elodiazick 8: 5.53% - If greater than or equal to 20%, consider annual mammogram and annual screening Breast MRI or follow up in high risk clinic. Is the patient at elevated risk based on the HBOC criteria? No (Hereditary Breast and Ovarian Cancer) - If Yes, consider genetic counseling and testing with high risk follow up Is the patient at elevated risk based on the Hahn Syndrome criteria? No - If Yes, consider genetic counseling and testing with high risk follow up. Report Dictated on Electronically Signed By: Eduardo Logan MD Electronically Signed Date/Time: 11/03/2023 8:14 AM EDT [facility] Radiology Study observation (narrative) [facility] DBT Breast - bilateral scree ningOrdered By: Eduardo Logan on 11-03-2023 [facility] [employer] Work Phone: Danny 11-01-2023 CNPN Telephone (ENDMED) GRACE ELKINS ([id number]) 1965 F Date Time Provider Department 11/01/23 FORREST AMBROCIO During your visit today, we recorded the following information about you: Nhi Cooper MA 11/01/2023 9:34 AM Signed Received outside lab results from [employer]. Placed in Dr. Ambrocio's in box for review. In Call Loop. Allergies As of Date: 11/01/2023 Noted Allergy Reaction AZITHROMYCIN 01/28/2016 4 - Hives CODEINE 01/28/2016 4 - Hives CORTISONE 03/30/2011 2 - Rash Date Reviewed: 07/21/2023 Reviewed by: Nhi Cooper MA - Fully Assessed Reason for Visit: Outside Lab Results [943] Cmt: [facility] Prescriptions as of 11/02/2023 - levothyroxine (SYNTHROID) 100 mcg tablet Take 1 tablet by mouth once daily. - Zinc 50 mg tab Take 50 mg by mouth once daily. - ferrous gluconate 324 mg (37.5 mg iron) tablet Take 1 tablet by mouth every other day. - mv-min/vit C/glut/lysine/hb124 (IMMUNE SUPPORT ORAL) Take by mouth. - MULTIVITAMIN (MULTIPLE VITAMINS ORAL) Take by mouth. 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 Normal [facility] THYROID PANEL - EXTERNALon 0 10-29-2023 Free Thyroxine (FT4) - Intl 1.1 0.8 - 1.8 [facility] TSH - Intl 1.92 0.40 - 4.50 [facility] 36on 10-18-2023 36 Spoke to patient, no questions. Normal [facility] Office Visiton 10-18-2023 Follow-up visit [id number] Grace Elkins 1965 F Date Provider Department Center 10/18/2023 [id number] Family History Problem Relation Age of Onset Diabetes Mother Rheumatologic disease Mother Family Status - Relation Status Age at Mother Father Level of Service:80696 [place] OFFICE/OUTPATIENT ESTABLISHED SF MDM 10 MIN Reason for Visit and Comments: Insect Bite [474413] - Bee sting ER Follow-up [831] - [facility] 10/16/23 left arm [facility] Progress Noteon 10-18-2023 Progress Note Improved, she now norris s an EpiPen that she will have to use next time she gets stung, she currently is taking Claritin and Pepcid and she should take those in the morning and if she wants to she can take a Benadryl at night. Normal [facility] Progress Note 10/18/2023 Grace Elkins (: 1965) is a 58 y.o. female , Established patient, here for evaluation of the following chief complaint(s): Insect Bite (Bee sting ) and ER Follow-up ([facility] 10/16/23 left arm ) ASSESSMENT/PLAN: 1. Bee sting, accidental or unintentional, initial encounter Assessment & Plan: Improved, she now has an EpiPen that she will have to use next time she gets stung, she currently is taking Claritin and Pepcid and she should take those in the morning and if she wants to she can take a Benadryl at night. Follow up if symptoms worsen or fail to improve. SUBJECTIVE/OBJECTIVE: HPI -Mere comes in today for a bee sting on her left arm, she says that she got stung she started getting hot her heart started beating fast started getting somewhat short of breath her vision started seeing all kinds of colors and they took her to the emergency room where they gave her antihistamines and epinephrine and sent her home with an EpiPen and told her to take Claritin and Pepcid to help this resolve. She says she is allergic to steroids. Review of Systems Respiratory: Positive for shortness of breath. Cardiovascular: Positive for palpitations. Negative for chest pain. Neurological: Negative for weakness. Vitals: 10/18/23 1421 BP: 127/83 Pulse: 63 SpO2: 97% Weight: 177 lb 9.6 oz (80.6 kg) Height: 5' 3 (1.6 m) Physical Exam Vitals and nursing note reviewed. Constitutional: General: She is not in acute distress. Appearance: Normal appearance. Cardiovascular: Rate and Rhythm: Normal rate and regular rhythm. Heart sounds: Normal heart sounds. No murmur heard. Pulmonary: Effort: Pulmonary effort is normal. Breath sounds: Normal breath sounds. Musculoskeletal: Comments: Left arm with some edema up to and slightly past the elbow. Nonpitting and no erythema or pain. Neurological: Mental Status: She is alert. An electronic signature was used to authenticate this note. Duke Dale MD 10/18/2023 3:37 PM [facility] Progress Note Patient verified by last name and date of . [facility] Emergency Department Summary on 10-16-2023 Emergency Department Summary [facility] Medical Records Department [address] [place] [address] Emergency Department Summary 10/16/23 MR#: [id number] Acct: [id number] Name: GRACE ELKINS Rep #: [id number] : 1965 58 From: Zain Harding DO PCP: DUNCAN Rodriguez Status:DEP ER Location: ED HPI History of Present Illness Chief Complaint: Allergic Reaction Informant: patient and spouse/S.O. Narrative Narrative: 58-year-old female presenting to the emergency room with a bee sting. Patient states that she was working in the flower beds when she was stung by a very big insect on her left forearm. States she got very shaky and had blurry vision she felt her heart racing. gave her a dose of Benadryl and they came to the hospital. She has had no other significant reactions. Patient denies any lip or tongue swelling. She did note that her tongue was feeling different than normal. She developed some hives at the site of the injection and some redness around her neck. no wheezing. She felt a burning sensation from her head to her toes. [facility] Medical History (Updated 10/16/23 @ 20:[address] Zain Harding DO) Hypothyroidism Medical History no medical history Home Medications ???Medication ???Instructions ???Recorded ???Last Taken ???Type levothyroxine 100 mcg tablet 100 mcg PO DAILY 10/16/23 Unknown History valacyclovir 1 gram tablet 4,000 mg PO X1 10/16/23 Unknown History Allergy/AdvReac Type Severity Reaction Status Date / Time cortisone Allergy Mild Rash Verified 10/16/23 20:19 Social History Smoking Status: Former smoker ROS ROS ED ROS Narrative Shakiness burning sensation from head to toe Constitutional Constitutional ED: Denies chills or weight loss Eyes Eyes: Denies change in vision or diplopia ENT ENT ED: Denies ear pain, rhinorrhea or sore throat Cardiovascular Cardiovascular: Reports racing heartbeat; Denies chest pain, orthopnea or palpitations Respiratory/Chest Respiratory/Chest: Denies cough, dyspnea or orthopnea Gastrointestinal Gastrointestinal: Denies abdominal pain, diarrhea, nausea or vomiting Genitourinary Genitourinary ED: Denies dysuria, hematuria or urinary frequency Musculoskeletal Musculoskeletal: Denies arthralgias or myalgias Integumentary Reports rash; Denies abscess Neurologic Neurologic: Denies headache(s) or weakness Psychiatric Psychiatric: Denies anxiety, depression, suicidal ideation or suicidal thoughts Endocrine Endocrinology: Denies polydipsia, polyphagia or polyuria Allergic/Immunologic Allergic/Immunologic ED: Denies mouth swelling, tongue swelling or urticaria EXAM Physical Exam Const Vital Signs: 10/16/23 20:15 10/16/23 21:15 Temperature 98.2 F Temperature Source Temporal Pulse Rate 77 61 Respiratory Rate 18 12 Blood Pressure 166/119 H 128/74 H Blood Pressure Mean 134 92 Pulse Ox 100 99 Oxygen Delivery Method Room Air Room Air Positive well nourished and well developed General Appearance ED: well developed HEENT Reports normocephalic, head/scalp atraumatic and moist mucous membranes Eyes PERRL and EOMs intact bilaterally Neck no lymphadenopathy, supple and no JVD Resp normal respiratory effort and clear to auscultation bilaterally Cardio regular rate, regular rhythm and no murmurs GI normal to inspection, nondistended, normoactive bowel sounds and non-tender Palpation: soft Back/Spine no CVA tenderness and normal ROM Extremity normal to inspection General Extremety ED: Negative for edema General Extremity: Negative for edema Neuro oriented x3 and CN's II-XII intact bilaterally Sensorium / Orientation: alert Motor Exam: strength 5/5 throughout Psych mental status grossly normal Mood Affect: Negative for depressed or tearful Skin no wounds Skin Narrative: There is a outlined area right anterior proximal forearm that is slightly erythematous and raised. I do not appreciate any diffuse hives. MDM MDM MDM Narrative Medical decision making narrative: Patient was placed on the monitor. She has already had Benadryl and so I gave her a dose of Pepcid. She notes allergic reaction to cortisone so I opted to not treat with steroids and to observe her. She is doing well. I do not appreciate any hives. The injection site shows some mild swelling. She would like to have some EpiPen's at home. Patient will continue Benadryl as well as some hydrocortisone cream at the injection site. She was advised that she may have redness and swelling at the site of envenomation. History Record Review Discussion w/independent historian: Patient and Significant other Discharge Plan Triage Chief Complaint: Allergic Reaction ED Provider: Zain Harding Dx/Rx/DC Orders (more content not included)... Normal [facility] 36on 10-15-2023 36 ----- Message from SHAE Rodriguez CNP sent at 10/15/2023 7:39 AM EDT ----- Negative for HPV. Left a message to return call. Normal [facility] Bacteria identified Cx Nom ( U)on 10-10-2023 [facility] Urine cultureon 10-10-2023 Bacteria identified Cx Nom (U) SEE NOTE [facility] Comment on above: CULTURE, URINE, ROUTINE Micro Number: [id number] Test Status: Final Specimen Source: Urine, clean catch Specimen Quality: Adequate Result: No Growth Urinalysis macro (dipstick) panel (U)on 10-08-2023 Bilirubin, UA Small [facility] h Blood, UA Trace-Lysed [facility] Glucose, UA Negative [facility] Interpretation and review of laboratory results Abnormal [facility] Ketones, POC (mg/dL) Negative [facility] Leukocytes, UA Negative [facility] Nitrite, UA Negative [facility] pH, UA 6.0 [facility] Protein, UA Negative [facility] Spec Grav, UA 1.030 [facility] h Urobilinogen, UA 0.2 [facility] ECG 12 lead - CLINIC PERFORM EDOrdered By: Crista Ivey on 10-07-2022 Interpretation and review of laboratory results Normal [facility] CMP (EXTERNAL)on 02-27-2022 Albumin [Mass/Vol] 4.2 g/dL 3.2 - 4.6 gm/dL [facility] Alk Phos Total 74 U/L 45 - 117 U/L [facility] ALT [Catalytic activity/Vol] 9 U/L Abnormal 12 - 78 U/L [facility] AST [Catalytic activity/Vol] 12 U/L 8 - 37 U/L [facility] Bili Total 0.9 mg/dL 0.2 - 1 mg/dL [facility] Calcium [Mass/Vol] 8.8 mg/dL 8.5 - 10. 1 mg/dL [facility] Chloride [Moles/Vol] 104 mmol/L 98 - 10 7 MEQ/L [facility] CO2 [Moles/Vol] 28 mmol/L 21 - 32 MEQ/L [facility] Creatinine [Mass/Vol] 0.67 mg/dL 0.6 - 1.3 MG/DL [facility] GFR/1.73 sq M.predicted among non-blacks MDRD (S/P/Bld) [Vol rate/Area] 104 mL/min/{1.73_m2} [facility] Glucose [Mass/Vol] 87 mg/dL 74 - 106 MG/DL [facility] Potassium [Moles/Vol] 4.3 mmol/L 3.5 - 5.1 mmol/L [facility] Protein [Mass/Vol] 6.7 g/dL 6.4 - 8.2 gm/dL [facility] Sodium [Moles/Vol] 139 mmol/L 136 - 145 mmol/L [facility] Urea nitrogen [Mass/Vol] 15 mg/dL 7 - 18 MG/DL [facility] LIPID PANEL (EXTERNAL)on Cholesterol [Mass/Vol] 183 mg/dL [facility] Cholesterol in HDL [Mass/Vol] 60 mg/dL [facility] Cholesterol in LDL [Mass/Vol] 105 mg/dL [facility] Non-HDL Cholesterol 123 [facility] TC:HDL Ratio 3.1 [facility] Triglyceride [Mass/Vol] 87 mg/dL [facility] THYROID PANEL - EXTERNALon 1 04-30-2021 Free Thyroxine (FT4) - Intl 1.0 0.8 - 1.8 [facility] TSH - Intl 5.95 Abnormal 0.40 - 4.50 [facility] US Retroperitoneal Limitedon 02-26-2021 US Retroperitoneal Limited Patient Name: GRACE ELKINS Ultrasound ACCESSION EXAM DATE/TIME PROCEDURE ORDERING PROVIDER [id number] 02/26/2021 15:29 EST US Retroperitoneal NATALYA PACHECO HOLLY S Limited CPT code 72514 Reason For Exam (US Retroperitoneal Limited) follow up Report CLINICAL INFORMATION: Renal cysts follow-up. Retroperitoneal ultrasound exam. COMPARISON: 03/07/2014 renal ultrasound examination. The right kidney measures 10.4 x 5.6 x 5.0 cm. The left kidney measures 11.9 x 6.4 x 5.9 cm. Inferior pole left renal cyst with septations measures 5.7 x 4.4 x 3.4 cm. Previously, this lesion measured 7.1 x 5.8 x 6.4 cm. Extending from the lateral aspect of this cyst is a smaller outpouching/cyst measuring 0.5 cm in diameter. This small adjacent cyst is not shown on the previous ultrasound examination. No hydronephrosis of either kidney. No renal stones or perirenal fluid collections. Renal parenchymal echotexture is within normal limits. The urinary bladder was partially collapsed during real-time imaging. The uterus was incidentally visualized. In the endometrial cavity is a one cm echogenic structure, possibly representing an endometrial polyp. Consider correlation with dedicated pelvic ultrasound exam. IMPRESSION: Normal size kidneys without hydronephrosis. Inferior pole left renal cystic lesion with septations measures smaller in size from the 2014 ultrasound examination. 5 mm cystic area originating from this more dominant cyst is new from the prior ultrasound examination. Echogenic area in the endometrial cavity raises concern of an endometrial polyp. Consider correlation with dedicated pelvic ultrasound. Report Dictated on Final Dictating Physician: MD SMITH LAURA Signed Date and Time: 02/26/2021 9:02 pm Signed by: MD SMITH LAURA Transcribed Date and Time: 02/26/2021 9:03 Normal [facility] MG Breast Tomosynthesis Scr Blon 02-12-2021 MG Breast Tomosynthesis Scr Bl Patient Name: GRACE ELKINS Mammography ACCESSION EXAM DATE/TIME PROCEDURE ORDERING PROVIDER [id number] 02/12/2021 09:17 EST MG Breast Tomosynthesis NATALYA PACHECO HOLLY S BI Scr CPT code 29609 47238 Reason For Exam (MG Breast Tomosynthesis BI Scr) screening Report TIME SINCE LAST MAMMOGRAM: Last mammogram was performed 1 year ago. REASON FOR EXAM: screening, asymptomatic. PROCEDURE: MG BREAST TOMOSYNTHESIS BL SCR: FEBRUARY 12, 2021 - 2D/3D Procedure 3D Bilateral CC and MLO view(s) were taken. 2D Bilateral CC and MLO view(s) were taken. Prior study comparison: February 12, 2020, bilateral MG breast tomosynthesis bl scr performed at [facility]. February 08, 2019, bilateral MG breast tomosynthesis bl scr performed at [facility]. March 03, 2017, bilateral MG mammogram digital screening performed at [facility]. TISSUE DENSITY: BIRADS B - There are scattered fibroglandular densities. . PATIENT CANCER HISTORY: No Personal History of Cancer FAMILY CANCER HISTORY: No Family History of Cancer . FINDINGS: No suspicious masses, architectural distortions or suspiciously clustered microcalcifications are identified. There are no significant changes when compared with prior studies. IMPRESSION: No mammographic evidence of malignancy. Markings on images: BB's = Nipples; skin lesions [place] = Palpable Line = Scar 2D digital mammography and tomosynthesis imaging were performed and reviewed with CAD. Mammography Report ASSESSMENT: Category 1 Negative RECOMMENDATION: Routine screening mammogram of both breasts in 1 year. . Report Dictated on Cancer Risk Assessment: This risk assessment is based on patient provided information collected in a risk survey taken at the time of this examination. Lifetime breast cancer risk: Average Risk - If greater than or equal to 20%, consider annual mammogram and annual screening Breast MRI or follow up in high risk clinic. A score of Average Risk indicates a score of less than 20%. Is the patient at elevated risk based on the HBOC criteria? No (Hereditary Breast and Ovarian Cancer) - If yes, consider genetic counseling and testing with high risk follow up. Is the patient at elevated risk based on the Hahn Syndrome criteria? No - If yes, consider genetic counseling and testing with high risk follow up. Final Signed Date and Time: 02/12/2021 9:43 am Signed by: MD LOGAN KERISTEN L Normal [facility] Digital Screen Jimmie [email or web address] 02-12-2021 Patient Name: GRACE ELKINS Mammography ACCESSION EXAM DATE/TIME PROCEDURE ORDERING PROVIDER [id number] 02/12/2021 09:17 EST MG Breast Tomosynthesis NATALYA PACHECO HOLLY S BI Scr CPT code 68424 18348 Reason For Exam (MG Breast Tomosynthesis BI Scr) screening Report TIME SINCE LAST MAMMOGRAM: Last mammogram was performed 1 year ago. REASON FOR EXAM: screening, asymptomatic. PROCEDURE: MG BREAST TOMOSYNTHESIS BL SCR: FEBRUARY 12, 2021 - 2D/3D Procedure 3D Bilateral CC and MLO view(s) were taken. 2D Bilateral CC and MLO view(s) were taken. Prior study comparison: February 12, 2020, bilateral MG breast tomosynthesis bl scr performed at [facility]. February 08, 2019, bilateral MG breast tomosynthesis bl scr performed at [facility]. March 03, 2017, bilateral MG mammogram digital screening performed at [facility]. TISSUE DENSITY: BIRADS B - There are scattered fibroglandular densities. . PATIENT CANCER HISTORY: No Personal History of Cancer FAMILY CANCER HISTORY: No Family History of Cancer . FINDINGS: No suspicious masses, architectural distortions or suspiciously clustered microcalcifications are identified. There are no significant changes when compared with prior studies. IMPRESSION: No mammographic evidence of malignancy. Markings on images: BB's = Nipples; skin lesions [place] = Palpable Line = Scar 2D digital mammography and tomosynthesis imaging were performed and reviewed with CAD. Mammography Report ASSESSMENT: Category 1 Negative RECOMMENDATION: Routine screening mammogram of both breasts in 1 year. . Report Dictated on Cancer Risk Assessment: This risk assessment is based on patient provided information collected in a risk survey taken at the time of this examination. Lifetime breast cancer risk: Average Risk - If greater than or equal to 20%, consider annual mammogram and annual screening Breast MRI or follow up in high risk clinic. A score of Average Risk indicates a score of less than 20%. Is the patient at elevated risk based on the HBOC criteria? No (Hereditary Breast and Ovarian Cancer) - If yes, consider genetic counseling and testing with high risk follow up. Is the patient at elevated risk based on the Hahn Syndrome criteria? No - If yes, consider genetic counseling and testing with high risk follow up. --- Final --- Signed Date and Time: 02/12/2021 9:43 am Signed by: MD DESMOND, EDUARDO Foreman [facility] Eduardo Logan MD - 02/12/2021 [facility]: [id number] M[facility] ACCESSION EXAM DATE/TIME PROCEDURE ORDERING PROVIDER [id number] 02/12/2021 09:17 EST MG Breast Tomosynthesis NATALYA PACHECO HOLLY S BI Scr CPT code 71066 [id number] Reason For Exam (MG Breast Tomosynthesis BI Scr) screening Report TIME SINCE LAST MAMMOGRAM: Last mammogram was performed 1 year ago. REASON FOR EXAM: screening, asymptomatic. PROCEDURE: MG BREAST TOMOSYNTHESIS BL SCR: FEBRUARY 12, 2021 - 2D/3D Procedure 3D Bilateral CC and MLO view(s) were taken. 2D Bilateral CC and MLO view(s) were taken. Prior study comparison: February 12, 2020, bilateral MG breast tomosynthesis bl scr performed at [facility]. February 08, 2019, bilateral MG breast tomosynthesis bl scr performed at [facility]. March 03, 2017, bilateral MG mammogram digital screening performed at [facility]. TISSUE DENSITY: BIRADS B - There are scattered fibroglandular densities. . PATIENT CANCER HISTORY: No Personal History of Cancer FAMILY CANCER HISTORY: No Family History of Cancer . FINDINGS: No suspicious masses, architectural distortions or suspiciously clustered microcalcifications are identified. There are no significant changes when compared with prior studies. IMPRESSION: No mammographic evidence of malignancy. Markings on images: BB's = Nipples; skin lesions [place] = Palpable Line = Scar 2D digital mammography and tomosynthesis imaging were performed and reviewed with CAD. Mammography Report ASSESSMENT: Category 1 Negative RECOMMENDATION: Routine screening mammogram of both breasts in 1 year. . Report Dictated on Cancer Risk Assessment: This risk assessment is based on patient provided information collected in a risk survey taken at the time of this examination. Lifetime breast cancer risk: Average Risk - If greater than or equal to 20%, consider annual mammogram and annual screening Breast MRI or follow up in high risk clinic. A score of Average Risk indicates a score of less than 20%. Is the patient at elevated risk based on the HBOC criteria? No (Hereditary Breast and Ovarian Cancer) - If yes, consider genetic counseling and testing with high risk follow up. Is the patient at elevated risk based on the Hahn Syndrome criteria? No - If yes, consider genetic counseling and testing with high risk follow up. --- Final --- Signed Date and Time: 02/12/2021 9:43 am Signed by: MD DESMOND, EDUARDO Foreman [facility] Work Phone: Radiology Study observation (narrative) [facility] Work Phone: [facility] Digital Screen Bila teralOrdered By: Eduardo Logan on 02-12-2021 [facility] Work Phone: Phone gon 07-12-2019 Phone Msg - From: Crista Vera Sent: 07/12/2019 10:06:48 EDT Actions: Message lvm for patient to call back to reschedule annual that was cancelled on 06/07/19 due to COVID Normal [facility] Clinical Summary: HMSPatient IDon 09-16-2018 [facility] Work Phone: MG Mammogram Digital Screeni ng Blon 03-03-2017 MG Mammogram Digital Screening Bl Patient Name: GRACE ELKINS Mammography Exam Date/Time 03/03/2017 13:32:39 EST Exam MG Mammogram Digital Screening Bl Ordering Physician MD CHITO, DUKE MCBRIDE Accession Number [id number] CPT4 Codes 16187 () Reason For Exam screening Report PATIENT HISTORY: No known family history of cancer. Took hormonal contraceptives for 2 years. Patient is a former smoker. Patient's BMI is 31.9. TIME SINCE LAST MAMMOGRAM: Last mammogram was performed 1 year ago. REASON FOR EXAM: screening, asymptomatic. PROCEDURE: MG MAMMOGRAM DIGITAL SCREENING: MARCH 03, 2017 - Bilateral CC and MLO view(s) were taken. Prior study comparison: February 27, 2016, bilateral MG mammogram digital screening performed at [facility]. March 07, 2014, bilateral mammogram, performed at [facility]. There are scattered fibroglandular densities. No suspicious masses, architectural distortions or suspiciously clustered microcalcifications are identified. There is no evidence of skin thickening or nipple retraction. There are no significant changes when compared with prior studies. Markings on images: BB's = Nipples; skin lesions [place] = Palpable Line = Scar 2D digital mammography imaging was performed and reviewed with CAD. ASSESSMENT: Category 1 Negative No mammographic evidence of malignancy. RECOMMENDATION: Routine screening mammogram of both breasts in 1 year. Cancer Risk Assessment: This risk assessment is based on patient provided information collected in a risk survey taken at the time of this examination. 5 year breast cancer risk is 1.1% - if greater than or equal to 1.7%, recommend discussion regarding the significance of these results and options for possible risk reduction. Lifetime breast cancer risk: 10.6% - If greater than or equal to 20%, consider annual mammogram and annual screening Breast MRI or follow up in high risk clinic. Is the patient at elevated risk based on the HBOC criteria? No (Hereditary Breast and Ovarian Cancer) - If yes, consider genetic counseling and testing with high risk follow up. HNPCC mutation risk (Hahn Syndrome): 1% - if greater than or equal to 5%, consider genetic counseling, testing and screening colonoscopy. Final Signed Date and Time: 03/03/2017 3:19 pm Signed by: MD MAHER LAUREN B [facility] Vital Signs Date Time Vital Sign Value Performing Clinician Facility 10-09-2024 13:31-0400 Body height 157.48 cm James Pacheco HYDROELECTRIC OPERATOR-C Work Phone: [facility] 10-09-2024 13:31-0400 Body mass index (BMI) [Ratio] 33.1 kg/m2 James Pacheco HYDROELECTRIC OPERATOR-C Work Phone: [facility] 10-09-2024 13:31-0400 Body weight 82.27 kg James Pacheco HYDROELECTRIC OPERATOR-C Work Phone: [facility] 10-09-2024 13:31-0400 Diastolic blood pressure 79 mm[Hg] James Pacheco HYDROELECTRIC OPERATOR-C Work Phone: [facility] 10-09-2024 13:31-0400 Systolic blood pressure 128 mm[Hg] James Pacheco HYDROELECTRIC OPERATOR-C Work Phone: [facility] 10-02-2024 15:32-0400 Body height [address] ADVISOR - LABOR ECONOMICS PROFESSOR Work Phone: [facility] 10-02-2024 15:32-0400 Body mass index (BMI) [Ratio] 32.2 kg/m2 James Pacheco ROAD ADVISOR - LABOR ECONOMICS PROFESSOR Work Phone: [facility] 10-02-2024 15:32-0400 Body weight 82.[address] ADVISOR - LABOR ECONOMICS PROFESSOR Work Phone: [facility] 10-02-2024 15:32-0400 Diastolic blood pressure 74 mm[Hg] James Pacheco ROAD ADVISOR - LABOR ECONOMICS PROFESSOR Work Phone: [facility] 10-02-2024 15:32-0400 Heart rate 63 /min James Pacheco ROAD ADVISOR - LABOR ECONOMICS PROFESSOR Work Phone: [facility] 10-02-2024 15:32-0400 SaO2% (BldA) [Mass fraction] 97 % James Pacheco ROAD ADVISOR - LABOR ECONOMICS PROFESSOR Work Phone: [facility] 10-02-2024 15:32-0400 Systolic blood pressure 118 mm[Hg] James Pacheco ROAD ADVISOR - LABOR ECONOMICS PROFESSOR Work Phone: [facility] 06-30-2024 09:12-0400 Body height 157.48 cm James Pacheco HYDROELECTRIC OPERATOR-C Work Phone: [facility] 06-30-2024 09:11-0400 Body mass index (BMI) [Ratio] 32.7 kg/m2 James Pacheco HYDROELECTRIC OPERATOR-C Work Phone: [facility] 06-30-2024 09:11-0400 Body weight 81.24 kg James Pacheco HYDROELECTRIC OPERATOR-C Work Phone: [facility] 06-30-2024 09:11-0400 Diastolic blood pressure 81 mm[Hg] James Pacheco HYDROELECTRIC OPERATOR-C Work Phone: [facility] 06-30-2024 09:11-0400 Systolic blood pressure 133 mm[Hg] James Pacheco HYDROELECTRIC OPERATOR-C Work Phone: [facility] 05-01-2024 09:52-0500 Body height 157.48 cm James Pacheco HYDROELECTRIC OPERATOR-C Work Phone: [facility] 05-01-2024 09:52-0500 Body mass index (BMI) [Ratio] 33.8 kg/m2 James Pacheco HYDROELECTRIC OPERATOR-C Work Phone: [facility] 05-01-2024 09:52-0500 Body weight 83.91 kg James Pacheco HYDROELECTRIC OPERATOR-C Work Phone: [facility] 05-01-2024 09:52-0500 Diastolic blood pressure 79 mm[Hg] James Pacheco HYDROELECTRIC OPERATOR-C Work Phone: [facility] 05-01-2024 09:52-0500 Systolic blood pressure 123 mm[Hg] James Pacheco HYDROELECTRIC OPERATOR-C Work Phone: [facility] 04-14-2024 07:59-0500 Body height [address] ADVISOR - LABOR ECONOMICS PROFESSOR Work Phone: [facility] 04-14-2024 07:59-0500 Body mass index (BMI) [Ratio] 32.24 kg/m2 James Pacheco ROAD ADVISOR - LABOR ECONOMICS PROFESSOR Work Phone: [facility] 04-14-2024 07:59-0500 Body weight 82.[address] ADVISOR - LABOR ECONOMICS PROFESSOR Work Phone: [facility] 04-14-2024 07:59-0500 Diastolic blood pressure 84 mm[Hg] James Pacheco ROAD ADVISOR - LABOR ECONOMICS PROFESSOR Work Phone: [facility] 04-14-2024 07:59-0500 Heart rate 64 /min James Pacheco ROAD ADVISOR - LABOR ECONOMICS PROFESSOR Work Phone: [facility] 04-14-2024 07:59-0500 SaO2% (BldA) [Mass fraction] 98 % James Pacheco ROAD ADVISOR - LABOR ECONOMICS PROFESSOR Work Phone: [facility] 04-14-2024 07:59-0500 Systolic blood pressure 131 mm[Hg] James Pacheco ROAD ADVISOR - LABOR ECONOMICS PROFESSOR Work Phone: [facility] 04-03-2024 12:52-0500 Body height [address] ADVISOR - LABOR ECONOMICS PROFESSOR Work Phone: [facility] 04-03-2024 12:52-0500 Body mass index (BMI) [Ratio] 32.49 kg/m2 James Pacheco ROAD ADVISOR - LABOR ECONOMICS PROFESSOR Work Phone: [facility] [facility] 04-03-2024 12:52-0500 Body weight 83.[address] ADVISOR - LABOR ECONOMICS PROFESSOR Work Phone: [employer] [facility] 04-03-2024 12:52-0500 Diastolic blood pressure 81 mm[Hg] James Pacheco ROAD ADVISOR - LABOR ECONOMICS PROFESSOR Work Phone: [employer] [facility] 04-03-2024 12:52-0500 Heart rate 67 /min James Pacheco ROAD ADVISOR - LABOR ECONOMICS PROFESSOR Work Phone: [employer] [facility] 04-03-2024 12:52-0500 SaO2% (BldA) [Mass fraction] 97 % James Pacheco ROAD ADVISOR - LABOR ECONOMICS PROFESSOR Work Phone: [employer] [facility] 04-03-2024 12:52-0500 Systolic blood pressure 132 mm[Hg] James Pacheco ROAD ADVISOR - LABOR ECONOMICS PROFESSOR Work Phone: [facility] [employer] [facility] 11-03-2023 07:43-0400 Body height [address] ADVISOR - LABOR ECONOMICS PROFESSOR Work Phone: [facility] [employer] [facility] 11-03-2023 07:43-0400 Body mass index (BMI) [Ratio] 31.35 kg/m2 James Pacheco ROAD ADVISOR - LABOR ECONOMICS PROFESSOR Work Phone: [facility] 11-03-2023 07:43-0400 Body weight 80.[address] ADVISOR - LABOR ECONOMICS PROFESSOR Work Phone: [facility] [employer] [facility] 10-18-2023 14:21-0400 Body height 160 cm Duke Dale MD Work Phone: [facility] 10-18-2023 14:21-0400 Body mass index (BMI) [Ratio] 31.46 kg/m2 Duke Dale MD Work Phone: [facility] 10-18-2023 14:21-0400 Body weight 80.56 kg Duke Dale MD Work Phone: [facility] 10-18-2023 14:21-0400 Diastolic blood pressure 83 mm[Hg] Duke Dale MD Work Phone: [facility] 10-18-2023 14:21-0400 Heart rate 63 /min Duke Dale MD Work Phone: [facility] 10-18-2023 14:21-0400 SaO2% (BldA) [Mass fraction] 97 % Duke Dale MD Work Phone: [facility] 10-18-2023 14:21-0400 Systolic blood pressure 127 mm[Hg] Duke Dale MD Work Phone: [facility] 10-08-2023 08:26-0400 Body height [address] ADVISOR - LABOR ECONOMICS PROFESSOR Work Phone: [facility] [employer] [facility] 10-08-2023 08:26-0400 Body mass index (BMI) [Ratio] 30.93 kg/m2 James Pacheco ROAD ADVISOR - LABOR ECONOMICS PROFESSOR Work Phone: [facility] [employer] [facility] 10-08-2023 08:26-0400 Body temperature 97.9 [degF] James Pacheco ROAD ADVISOR - LABOR ECONOMICS PROFESSOR Work Phone: [facility] [employer] [facility] 10-08-2023 08:26-0400 Body weight 79.[address] ADVISOR - LABOR ECONOMICS PROFESSOR Work Phone: [facility] [employer] [facility] 10-08-2023 08:26-0400 Diastolic blood pressure 74 mm[Hg] James Pacheco ROAD ADVISOR - LABOR ECONOMICS PROFESSOR Work Phone: [facility] 10-08-2023 08:26-0400 Heart rate 66 /min James Pacheco ROAD ADVISOR - LABOR ECONOMICS PROFESSOR Work Phone: [facility] [employer] [facility] 10-08-2023 08:26-0400 Respiratory rate 18 /min James Pacheco ROAD ADVISOR - LABOR ECONOMICS PROFESSOR Work Phone: [facility] [employer] [facility] 10-08-2023 08:26-0400 SaO2% (BldA) [Mass fraction] 98 % James Pacheco ROAD ADVISOR - LABOR ECONOMICS PROFESSOR Work Phone: [facility] 10-08-2023 08:26-0400 Systolic blood pressure 128 mm[Hg] James Pacheco ROAD ADVISOR - LABOR ECONOMICS PROFESSOR Work Phone: [facility] 07-21-2023 07:56-0400 Body height 159 cm Forrest Ambrocio MD Work Phone: [facility] 07-21-2023 07:56-0400 Body mass index (BMI) [Ratio] 31.17 kg/m2 Forrest Ambrocio MD Work Phone: [facility] 07-21-2023 07:56-0400 Body weight 78.8 kg Forrest Ambrocio MD Work Phone: [facility] 07-21-2023 07:56-0400 Diastolic blood pressure 75 mm[Hg] Forrest Ambrocio MD Work Phone: [facility] 07-21-2023 07:56-0400 Heart rate 71 /min Forrest Ambrocio MD Work Phone: [facility] 07-21-2023 07:56-0400 SaO2% (BldA) [Mass fraction] 99 % Forrest Ambrocio MD Work Phone: [facility] 07-21-2023 07:56-0400 Systolic blood pressure 124 mm[Hg] Forrest Ambrocio MD Work Phone: [facility] 04-09-2023 07:35-0500 Body height [address] ADVISOR - LABOR ECONOMICS PROFESSOR Work Phone: [facility] 04-09-2023 07:35-0500 Body mass index (BMI) [Ratio] 31.53 kg/m2 James Pacheco ROAD ADVISOR - LABOR ECONOMICS PROFESSOR Work Phone: [facility] 04-09-2023 07:35-0500 Body weight 80.[address] ADVISOR - LABOR ECONOMICS PROFESSOR Work Phone: [facility] 04-09-2023 07:35-0500 Diastolic blood pressure 69 mm[Hg] James Pacheco ROAD ADVISOR - LABOR ECONOMICS PROFESSOR Work Phone: [facility] 04-09-2023 07:35-0500 Heart rate 78 /min James Pacheco ROAD ADVISOR - LABOR ECONOMICS PROFESSOR Work Phone: [facility] 04-09-2023 07:35-0500 SaO2% (BldA) [Mass fraction] 99 % James Pacheco ROAD ADVISOR - LABOR ECONOMICS PROFESSOR Work Phone: [facility] 04-09-2023 07:35-0500 Systolic blood pressure 107 mm[Hg] James Pacheco ROAD ADVISOR - LABOR ECONOMICS PROFESSOR Work Phone: [facility] 10-07-2022 13:44-0400 Body height [address] ADVISOR - LABOR ECONOMICS PROFESSOR Work Phone: [facility] 10-07-2022 13:44-0400 Body mass index (BMI) [Ratio] 30.11 kg/m2 James Pacheco ROAD ADVISOR - LABOR ECONOMICS PROFESSOR Work Phone: [facility] 10-07-2022 13:44-0400 Body weight 77.[address] ADVISOR - LABOR ECONOMICS PROFESSOR Work Phone: [facility] 10-07-2022 13:44-0400 Diastolic blood pressure 68 mm[Hg] James Pacheco ROAD ADVISOR - LABOR ECONOMICS PROFESSOR Work Phone: [facility] 10-07-2022 13:44-0400 Heart rate 61 /min James Pacheco ROAD ADVISOR - LABOR ECONOMICS PROFESSOR Work Phone: [facility] 10-07-2022 13:44-0400 SaO2% (BldA) [Mass fraction] 98 % James Pacheco ROAD ADVISOR - LABOR ECONOMICS PROFESSOR Work Phone: [facility] 10-07-2022 13:44-0400 Systolic blood pressure 114 mm[Hg] James Pacheco ROAD ADVISOR - LABOR ECONOMICS PROFESSOR Work Phone: [facility] 05-15-2022 14:13-0500 Body height [address] ADVISOR - LABOR ECONOMICS PROFESSOR Work Phone: [facility] 05-15-2022 14:13-0500 Body mass index (BMI) [Ratio] 31 kg/m2 James Pacheco ROAD ADVISOR - LABOR ECONOMICS PROFESSOR Work Phone: [facility] 05-15-2022 14:13-0500 Body temperature 97.2 [degF] James Pacheco ROAD ADVISOR - LABOR ECONOMICS PROFESSOR Work Phone: [facility] 05-15-2022 14:13-0500 Body weight 79.[address] ADVISOR - LABOR ECONOMICS PROFESSOR Work Phone: [facility] 05-15-2022 14:13-0500 Diastolic blood pressure 66 mm[Hg] James Pacheco ROAD ADVISOR - LABOR ECONOMICS PROFESSOR Work Phone: [facility] 05-15-2022 14:13-0500 Heart rate 64 /min James Pacheco ROAD ADVISOR - LABOR ECONOMICS PROFESSOR Work Phone: [facility] 05-15-2022 14:13-0500 SaO2% (BldA) [Mass fraction] 99 % James Pacheco ROAD ADVISOR - LABOR ECONOMICS PROFESSOR Work Phone: [facility] 05-15-2022 14:13-0500 Systolic blood pressure 105 mm[Hg] James Pacheco ROAD ADVISOR - LABOR ECONOMICS PROFESSOR Work Phone: [facility] NEGATED: Highlighted [id number] 12:17-0400 BMI (Body Mass Index) 33.41 kg/m2 Inés Aviles FRANCES [facility] Work Phone: NEGATED: Highlighted [id number] 12:17-0400 Body weight 82.56 kg Inés Aviles FRANCES [facility] Work Phone: NEGATED: Highlighted [id number] 12:17-0400 Body weight 83 kg Inés Aviles FRANCES [facility] Work Phone: NEGATED: Highlighted [id number] 12:17-0400 BP Diastolic 75 mm[Hg] Inés Aviles FRANCES [facility] Work Phone: NEGATED: Highlighted [id number] 12:17-0400 BP Systolic 111 mm[Hg] Inés Aviles FRANCES [facility] Work Phone: NEGATED: Highlighted [id number] 12:17-0400 Heart rate 2+ Inés Aviles CLAY THROWER [facility] Work Phone: NEGATED: Highlighted [id number] 12:17-0400 Heart rate Inés Aviles LPN [facility] Work Phone: NEGATED: Highlighted [id number] 12:17-0400 Height 157.48 cm Inés Aviles LPN [facility] Work Phone: NEGATED: Highlighted [id number] 12:17-0400 Height 157 cm Inés Aviles LPN [facility] Work Phone: NEGATED: Highlighted [id number] 12:17-0400 Pulse (Heart Rate) 64 /min Inés Aviles LPN [facility] Work Phone: Encounters Encounter Date Encounter Type Care Provider Facility Start: 10-17-2024 ambulatory Sarah Cardoso Facility:[facility] Start: 10-13-2024 End: 10-13-2024 ambulatory [facility] Facility:[facility] Start: 10-11-2024 Encounter for other preprocedural examination Sarah Cardoso [facility] Start: 10-11-2024 End: 10-11-2024 ambulatory [facility] Start: 10-09-2024 End: 10-09-[address] Sarah Cardoso DO -[facility] Work Phone: Start: 10-09-2024 End: 10-09-2024 ambulatory James Pacheco HYDROELECTRIC OPERATOR-C Work Phone: -[facility] Start: 10-02-2024 End: 10-02-2024 Office outpatient visit [address] ADVISOR - LABOR ECONOMICS PROFESSOR Work Phone: [facility] Comment on above: Eyelid twitch (Prima ry Dx); Thyroid nodule; Hypothyroidism, unspecified type; Screening for lipoid disorders; Bee sting allergy; Lesion of skin of nose; Uterine leiomyoma, unspecified location; Iron deficiency; Screening for diabetes mellitus; Anxiety Start: 10-02-2024 End: 10-02-2024 ambulatory [facility] Start: 09-04-2024 End: 09-07-2024 Refill Forrest Ambrocio MD Work Phone: Endocrinology Comment on above: Refill Request Start: 06-30-2024 End: 06-30-2024 ambulatory James Pacheco HYDROELECTRIC OPERATOR-C Work Phone: [facility] Work Phone: Start: 06-30-2024 End: 06-30-[address] Sarah Cardoso DO -Laboratory, [facility] Work Phone: Start: 06-30-2024 End: 06-30-[address] Sarah Cardoso DO -[facility] Work Phone: Start: 06-30-2024 End: 06-30-2024 ambulatory James Pacheco NP Facility:[facility] Start: 06-30-2024 End: 06-30-2024 ambulatory Sarah Cardoso Facility:[facility] Start: 05-12-2024 End: 05-12-2024 ambulatory James Pacheco HYDROELECTRIC OPERATOR-C Work Phone: [facility] Work Phone: Start: 05-12-2024 End: 05-12-[address] Sarah Bolden, [facility] Work Phone: Start: 05-12-2024 End: 05-12-2024 ambulatory Sarah Cardoso Facility:[facility] Start: 05-01-2024 End: 05-01-[address] Sarah Cardoso DO -Lab, [facility] Start: 05-01-2024 End: 05-01-[address] Sarah Cardoso DO -[facility] Work Phone: Start: 05-01-2024 End: 05-01-2024 ambulatory James Pacheco NP Facility:[facility] Start: 05-01-2024 End: 05-01-2024 ambulatory Sarahanil Archibald Francis Facility:[facility] Start: 04-14-2024 End: 04-14-2024 Office outpatient visit [address] ADVISOR - LABOR ECONOMICS PROFESSOR Work Phone: [facility] Comment on above: Gastroesophageal ref lux disease without esophagitis (Primary Dx); Hypothyroidism, unspecified type; Thyroid nodule; Insomnia, unspecified type; Iron deficiency; Arthritis of both hips; Chronic left hip pain; Multiple renal cysts; Recurrent cold sores; Influenza vaccine refused Start: 04-14-2024 End: 04-14-2024 ambulatory [facility] Start: 04-03-2024 End: 04-03-2024 Office outpatient visit [address] ADVISOR - LABOR ECONOMICS PROFESSOR Work Phone: [facility] Comment on above: Recurrent cold sores (Primary Dx); Medication reaction, initial encounter; Menorrhagia with regular cycle; Influenza vaccine refused Start: 04-03-2024 End: 04-03-2024 ambulatory [facility] Start: 11-03-2023 End: 11-03-2023 Subsequent hospital visit by physician James Pacheco ROAD ADVISOR - LABOR ECONOMICS PROFESSOR Work Phone: [facility] Comment on above: Screening mammogram for breast cancer Start: 11-03-2023 End: 11-03-2023 ambulatory [facility] Start: 11-01-2023 End: 11-02-2023 Orders Only Forrest Ambrocio MD Work Phone: Endocrinology Comment on above: Outside Lab Results ([facility]) Start: 10-29-2023 End: 10-29-2023 ambulatory [facility] Start: 10-18-2023 End: 10-18-2023 Office outpatient visit 10 minutes Duke Dale MD Work Phone: [facility] Comment on above: Bee sting, accidenta l or unintentional, initial encounter (Primary Dx) Start: 10-18-2023 End: 10-18-2023 ambulatory [facility] Start: 10-16-2023 End: 10-16-2023 Emergency department patient visit Zain Harding Facility:[facility] Start: 10-08-2023 End: 10-08-2023 Office outpatient visit [address] ADVISOR - LABOR ECONOMICS PROFESSOR Work Phone: [facility] Comment on above: Well female exam wit h routine gynecological exam (Primary Dx); Gastroesophageal reflux disease without esophagitis; Hypothyroidism, unspecified type; Thyroid nodule; Insomnia, unspecified type; Iron deficiency; Chronic left hip pain; Arthritis of both hips; Multiple renal cysts; Recurrent cold sores; Urinary urgency; Other microscopic hematuria; Encounter for Papanicolaou smear for cervical cancer screening Start: 10-08-2023 End: 10-08-2023 Patient encounter status James Pacheco ROAD ADVISOR - LABOR ECONOMICS PROFESSOR Work Phone: [facility] Work Phone: Start: 10-08-2023 End: 10-08-2023 Periodic preventive med est patient 40-64yrs [address] P[address] ADVISOR - LABOR ECONOMICS PROFESSOR Work Phone: [facility] Comment on above: Well female exam wit h routine gynecological exam (Primary Dx); Gastroesophageal reflux disease without esophagitis; Hypothyroidism, unspecified type; Thyroid nodule; Insomnia, unspecified type; Iron deficiency; Chronic left hip pain; Arthritis of both hips; Multiple renal cysts; Recurrent cold sores; Urinary urgency; Other microscopic hematuria; Encounter for Papanicolaou smear for cervical cancer screening Start: 07-27-2023 Telephone encounter Forrest Ambrocio MD Work Phone: Endocrinology Comment on above: Thyroid Ultrasound R eport ([facility]) Start: 07-21-2023 End: 07-21-2023 Patient encounter procedure Forrest Ambrocio MD Work Phone: Endocrinology Comment on above: Acquired hypothyroid ism (Primary Dx); Thyroid nodule; Obesity, Class I, BMI 30-34.9 Start: 07-01-2023 Telephone encounter Duke Ojeda MD Work Phone: [facility] Comment on above: Thyroid bloodwork? ; US thyroid Start: 04-09-2023 End: 04-09-2023 Patient encounter status James Pacheco ROAD ADVISOR - LABOR ECONOMICS PROFESSOR Work Phone: [facility] Work Phone: Start: 04-09-2023 End: 04-09-2023 Periodic preventive med est patient 40-64yrs [address] ADVISOR - LABOR ECONOMICS PROFESSOR Work Phone: [facility] Comment on above: Well adult exam ([facility] Dx); Gastroesophageal reflux disease without esophagitis; Hypothyroidism, unspecified type; Insomnia, unspecified type; Iron deficiency; Chronic left hip pain; Arthritis of both hips; Multiple renal cysts; Screening for diabetes mellitus; Screening mammogram for breast cancer; Screening for colon cancer; Screening for lipoid disorders Start: 02-14-2023 Refill Forrest Ambrocio MD Work Phone: Endocrinology Comment on above: Refill Request Start: 01-01-2023 Orders Only James Pacheco ROAD ADVISOR - LABOR ECONOMICS PROFESSOR Work Phone: [facility] Comment on above: Spondylosis of lumba r joint (Primary Dx); Arthritis of both hips Start: 12-30-2022 Telephone encounter Forrest Ambrocio MD Work Phone: Endocrinology Comment on above: X-Ray - Pelvis and L eft Hip and Lumbar Spine ([facility]) Start: 12-29-2022 End: 12-29-2022 ambulatory [facility] Work Phone: Start: 12-29-2022 End: 12-29-2022 Patient encounter procedure [facility]-Radiology, [facility] Work Phone: Start: 10-07-2022 End: 10-07-2022 Office outpatient visit [address] ADVISOR - LABOR ECONOMICS PROFESSOR Work Phone: [facility] Comment on above: Insomnia, unspecifie d type (Primary Dx); Gastroesophageal reflux disease without esophagitis; Hypothyroidism, unspecified type; Iron deficiency; Recurrent cold sores; Menorrhagia with regular cycle; Chronic bilateral low back pain with right-sided sciatica; Chronic left hip pain; Heart palpitations Start: 08-10-2022 Orders Only James Kenney Junior ROAD ADVISOR - LABOR ECONOMICS PROFESSOR Work Phone: [facility] Comment on above: Left hip pain (Prima ry Dx) Start: 05-15-2022 End: 05-15-2022 Office outpatient visit [address] ADVISOR - LABOR ECONOMICS PROFESSOR Work Phone: [facility] Comment on above: Pharyngitis, unspeci fied etiology (Primary Dx); Exposure to strep throat; Malaise; Chronic bilateral low back pain with right-sided sciatica; Hypothyroidism, unspecified type Start: 05-14-2022 ambulatory Tanya youssef RN [facility] Clinical Communication Start: 05-14-2022 Patient encounter procedure Tanya Jackson RN [facility] Clinical Communication Start: 04-01-2022 End: 04-01-2022 Patient encounter procedure James Pacheco ROAD ADVISOR - LABOR ECONOMICS PROFESSOR Work Phone: [facility] Comment on above: Skin tag (Primary Dx ); Painful skin lesion Start: 03-24-[address] ADVISOR - LABOR ECONOMICS PROFESSOR Work Phone: [facility] Comment on above: Hypothyroidism, unsp ecified type Start: 03-05-2022 Orders Only Forrest Ambrocio MD Work Phone: Endocrinology Comment on above: Outside Lab Results ([facility]) Start: 01-22-2022 Refill Forrest Ambrocio MD Work Phone: Endocrinology Comment on above: Refill Request Start: 01-22-2022 Telephone encounter Forrest Ambrocio MD Work Phone: Endocrinology Comment on above: Thyroid US ([facility] ) Start: 01-21-2022 End: 11-16-2022 ambulatory [facility] Work Phone: Start: 01-21-2022 End: 01-21-2022 Patient encounter procedure [facility], [facility] Start: 12-23-2021 Transcribe Orders James moulton ROAD ADVISOR - LABOR ECONOMICS PROFESSOR Work Phone: [facility] Comment on above: Encounter for screen ing mammogram for malignant neoplasm of breast (Primary Dx) Start: 02-12-2021 End: 02-12-2021 Subsequent hospital visit by physician James Pacheco ROAD ADVISOR - LABOR ECONOMICS PROFESSOR Work Phone: [facility] Comment on above: Arrived Start: 02-12-2020 End: 02-12-2020 Subsequent hospital visit by physician James Pacheco Work Phone: [facility] Comment on above: Arrived Start: 02-08-2019 End: 02-08-2019 Subsequent hospital visit by physician James Pacheco Work Phone: [facility] Comment on above: Arrived Start: 09-16-2018 End: 09-16-2018 Patient encounter procedure Eliseo Dawn MD Work Phone: [facility] Work Phone: Start: 09-16-2018 End: 09-16-2018 Pt evaluation Eliseo Dawn MD Work Phone: [facility] Work Phone: Start: 03-03-2017 [facility] Procedures Date Procedure Procedure Detail Performing Clinician Start: 05-12-2024 Pelvic echography James Pacheco HYDROELECTRIC OPERATOR-C Work Phone: Start: 04-03-2024 Adult depression screening assessment James Pacheco ROAD ADVISOR - LABOR ECONOMICS PROFESSOR Work Phone: Start: 11-03-2023 End: 11-03-2023 Screening digital breast tomosynthesis bi James Pacheco ROAD ADVISOR - LABOR ECONOMICS PROFESSOR Work Phone: Start: 10-29-2023 THYROID PANEL - EXTERNAL [facility] Provider Start: 10-29-2023 Thyrotropin [Units/volume] in Serum or Plasma James Pacheco APRN - [facility] Work Phone: Start: 10-08-2023 Culture bacterial quanttative colony count urine James Pacheco ROAD ADVISOR - [facility] Work Phone: Start: 10-08-2023 Urnls dip stick/tabl et rgnt non-auto w/o micrscp James Pacheco ROAD ADVISOR - [facility] Work Phone: Start: 10-08-2023 Microscopic observat ion [Identifier] in Cervix by Cyto stain Duke Dale MD Work Phone: Start: 04-09-2023 Adult depression screening assessment James Pacheco ROAD ADVISOR - [facility] Work Phone: Start: 12-29-2022 X-ray of lumbosacral spine Start: 12-29-2022 Plain x-ray of pelvi s and lower extremity Start: 10-07-2022 Ecg routine ecg w/le ast 12 lds w/i&r James Pacheco ROAD ADVISOR - [facility] Work Phone: Start: 07-13-2022 Thyrotropin [Units/volume] in Serum or Plasma James Pacheco [facility] Work Phone: Start: 02-27-2022 Comprehensive metabo lic 2000 panel - Serum or Plasma [facility] Provider Start: 02-27-2022 Lipid panel [facility] Provid er Start: 02-27-2022 THYROID PANEL - EXTERNAL [facility] Provider Start: 02-27-2022 Adult depression screening assessment James Pacheco [facility] Work Phone: Start: 02-27-2022 Lipid 1996 panel - S darren or Plasma Tanya Jackson RN Start: 02-27-2022 Thyrotropin [Units/volume] in Serum or Plasma James Pacheco ROAD ADVISOR [facility] Work Phone: Start: 02-24-[address] ADVISOR - [facility] Work Phone: Start: 01-21-2022 US scan of thyroid Start: 02-24-2021 Microscopic observat ion [Identifier] in Cervix by Cyto stain James Pacheco ROAD ADVISOR - LABOR ECONOMICS PROFESSOR Work Phone: Start: 02-12-2021 Screening digital br east tomosynthesis bi James Pacheco ROAD ADVISOR - LABOR ECONOMICS PROFESSOR Work Phone: Start: 09-16-2018 End: 09-16-2018 Blood pressure within normal parameters - no follow-up required Eliseo Dawn MD Work Phone: Start: 09-16-2018 End: 09-16-2018 BMI documented as above normal parameters - follow-up documented Eliseo Dawn MD Work Phone: Start: 09-16-2018 End: 09-16-2018 Documentation of current medications Eliseo Dawn MD Work Phone: Start: 09-16-2018 End: 09-16-2018 Pain assessment documented as positive - follow-up documented Eliseo Dawn MD Work Phone: Start: 09-16-2018 End: 09-16-2018 Radex calcaneus minimum 2 views Eliseo Dawn MD Work Phone: Start: 09-16-2018 End: 09-16-2018 Tobacco non-user Eliseo Dawn MD Work Phone: Start: 02-26-2017 Microscopic observat ion [Identifier] in Cervix by Cyto stain James Pacheco ROAD ADVISOR - LABOR ECONOMICS PROFESSOR Work Phone: Start: 02-28-2012 Mammography Forrest lema MD Work Phone: NEGATED: Highlighted rowStart: 09-16-2018 End: 09-16-2018 Documentation of current medications Inés Aviles LPN Plan of Treatment Date Care Activity Detail Author Start: 2042 RSV Immunization for Adults (1 - 1-dose 75+ series) RSV Immunization for Adults (1 - 1-dose 75+ series) [facility] Start: 10-07-2028 Screening for malignant neoplasm of cervix [facility] Start: 04-28-2028 Screening for malignant neoplasm of colon Colorectal Cancer Screening [facility] Comment on above: Postponed from 1967 (Other Medical Reasons) Start: 2027 RSV Immunization aged 60 or older (1 - 1-dose 60+ series) RSV Immunization aged 60 or older (1 - 1-dose 60+ series) [facility] Start: 02-27-2027 Lipid 1996 panel - Serum or Plasma Lipid Screening [facility] Start: 02-27-2027 Lipid panel [facility] Start: 02-27-[address] [facility] Start: 10-07-2026 Screening for malignant neoplasm of cervix Pap Smear [facility] Start: 05-09-2026 Screening for malignant neoplasm of colon [facility] Start: 04-14-2025 Hepatitis B Vaccines (1 of 3 - 19+ 3-dose series) Hepatitis B Vaccines (1 of 3 - 19+ 3-dose series) [facility] Comment on above: Postponed from 1986 (Patient Refus ed) Start: 04-14-2025 Hepatitis C screening Hepatitis C Screening [facility] Comment on above: Postponed from 1985 (Patient Refus ed) Start: 04-14-2025 HIV screening HIV Screening [facility] Comment on above: Postponed from 1967 (Patient Refus ed) Start: 04-06-2025 End: 04-06-2025 Patient encounter procedure 04/06/2025 8:00 AM EST Office Visit [facility] [address] [place] [address] [address]co S, ROAD ADVISOR - LABOR ECONOMICS PROFESSOR [address] [place] [address] [facility] Start: 04-03-2025 COVID-19 Vaccine ( season) COVID-19 Vaccine ( season) [facility] Comment on above: Postponed from 11/07/2023 (Patient Refus ed) Start: 04-03-2025 Depression Screening Depression Screening [facility] Start: 04-03-2025 Pneumococcal Vaccine: 50+ Years (1 of 1 - PCV) Pneumococcal Vaccine: 50+ Years (1 of 1 - PCV) [facility] Comment on above: Postponed from 2017 (Patient Refus ed) Start: 02-27-2025 DIABETES SCREEN DIABETES SCREEN [facility] Start: 02-27-2025 Diabetes Screening Diabetes Screening [facility] Start: 11-06-2024 Influenza vaccination Influ[facility] Vaccine (#[facility]) [facility] Start: 11-02-2024 Screening for malignant neoplasm of breast Mammogram [facility] Start: 10-28-2024 Thyroid stimulating hormone measurement TSH Level [facility] Start: 10-13-2024 End: 10-13-2024 Patient encounter procedure 10/13/2024 8:20 AM EDT Office Visit [facility] [address] [facility] [place] [address] [address] Pacheco S, ROAD ADVISOR - LABOR ECONOMICS PROFESSOR [address] [place] [address] [facility] Start: 10-07-2024 Diabetes mellitus screening Diabetes Screening [facility] Start: 10-06-2024 End: 10-06-2024 Patient encounter procedure Endocrinology Comment on above: hypothyroidism Start: 10-02-2024 End: 10-02-2025 CBC panel - Blood by Automated count CBC Lab Routine Eyelid twitch Thyroid nodule Hypothyroidism, unspecified type Bee sting allergy Lesion of skin of nose Uterine leiomyoma, unspecified location Iron deficiency Expected: 10/02/2024 (Approximate), Expires: 10/02/2025 [facility] Comment on above: Expected: 10/02/2024 (Approximate), Expi res: 10/02/2025 Start: 10-02-2024 End: 10-02-2025 Comprehensive metabolic 1998 panel - Serum or Plasma Comprehensive metabolic panel Lab Routine Eyelid twitch Thyroid nodule Hypothyroidism, unspecified type Bee sting allergy Lesion of skin of nose Uterine leiomyoma, unspecified location Screening for diabetes mellitus Expected: 10/02/2024 (Approximate), Expires: 10/02/2025 [facility] Comment on above: Expected: 10/02/2024 (Approximate), Expi res: 10/02/2025 Start: 10-02-2024 End: 10-02-2025 Ferritin [Mass/volume] in Serum or Plasma Ferritin Lab Routine Iron deficiency Expected: 10/02/2024 (Approximate), Expires: 10/02/2025 [facility] Comment on above: Expected: 10/02/2024 (Approximate), Expi res: 10/02/2025 Start: 10-02-2024 End: 10-02-2025 Iron and Iron binding capacity panel - Serum or Plasma Iron and TIBC Lab Routine Iron deficiency Expected: 10/02/2024 (Approximate), Expires: 10/02/2025 [facility] Comment on above: Expected: 10/02/2024 (Approximate), Expi res: 10/02/2025 Start: 10-02-2024 End: 10-02-2025 Lipid 1996 panel - Serum or Plasma Lipid panel Lab Routine Screening for lipoid disorders Expected: 10/02/2024 (Approximate), Expires: 10/02/2025 [facility] Comment on above: Expected: 10/02/2024 (Approximate), Expi res: 10/02/2025 Start: 10-02-2024 End: 10-02-2025 Thyrotropin [Units/volume] in Serum or Plasma TSH Lab Routine Hypothyroidism, unspecified type Expected: 10/02/2024 (Approximate), Expires: 10/02/2025 [facility] Work Phone: Comment on above: Expected: 10/02/2024 (Approximate), Expi res: 10/02/2025 Start: 10-02-2024 End: 10-02-2025 Thyroxine (T4) free [Mass/volume] in Serum or Plasma T4, free Lab Routine Hypothyroidism, unspecified type Expected: 10/02/2024 (Approximate), Expires: 10/02/2025 [facility] Comment on above: Expected: 10/02/2024 (Approximate), Expi res: 10/02/2025 Start: 10-02-2024 End: 10-02-2025 Transferrin [Mass/volume] in Serum or Plasma Transferrin Lab Routine Iron deficiency Expected: 10/02/2024 (Approximate), Expires: 10/02/2025 [facility] Comment on above: Expected: 10/02/2024 (Approximate), Expi res: 10/02/2025 Start: 09-04-2024 Influenza vaccination Influenza Vaccine (#1) [facility] Comment on above: Postponed from 11/07/2023 (Patient Refus ed) Start: 04-14-2024 End: 04-14-2024 Patient encounter procedure [facility] Start: 04-09-2024 COVID-19 Vaccine () COVID-19 Vaccine () [facility] Comment on above: Postponed from 11/06/2022 (Patient Refus ed) Start: 04-09-2024 Depression Screening Depression Screening [facility] Start: 04-09-2024 Hepatitis B Vaccines (1 of 3 - 19+ 3-dose series) Hepatitis B Vaccines (1 of 3 - 19+ 3-dose series) [facility] Comment on above: Postponed from 1986 (Patient Refus ed) Start: 04-09-2024 Hepatitis B Vaccines (1 of 3 - 3-dose series) Hepatitis B Vaccines (1 of 3 - 3-dose series) [facility] Comment on above: Postponed from 1967 (Patient Refus ed) Start: 04-09-2024 Hepatitis C screening Hepatitis C Screening [facility] Comment on above: Postponed from 1985 (Patient Refus ed) Start: 04-09-2024 HIV screening HIV Screening [facility] Comment on above: Postponed from 1967 (Patient Refus ed) Start: 02-25-2024 Screening for malignant neoplasm of cervix [facility] Start: 02-18-2024 Lipid panel Lipid screen [facility] Start: 02-18-[address] [facility] Start: 11-07-2023 Covid-19 Vaccine () Covid-19 Vaccine () [facility] Start: 11-07-2023 Influenza vaccination [facility] Start: 11-03-2023 End: 11-03-2023 Patient encounter procedure 11/03/2023 8:00 AM EDT Appointment [facility] [address] [place] [id number] [facility] Start: 10-22-2023 End: 10-22-2023 Clinical Support 10/22/2023 7:30 AM EDT Clinical Support [facility] [address] [place] [address] [facility] Start: 10-08-2023 End: 10-07-2024 Bacteria identified in Urine by Culture Urine culture Microbiology Routine Urinary urgency Other microscopic hematuria Expected: 10/08/2023 (Approximate), Expires: 10/07/2024 [facility] Comment on above: Expected: 10/08/2023 (Approximate), Expi res: 10/07/2024 Start: 10-08-2023 End: 10-07-2024 Thyroxine (T4) free [Mass/volume] in Serum or Plasma T4, free Lab Routine Hypothyroidism, unspecified type Expected: 10/08/2023 (Approximate), Expires: 10/07/2024 [facility] Work Phone: Comment on above: Expected: 10/08/2023 (Approximate), Expi res: 10/07/2024 Start: 10-08-2023 End: 10-08-2023 Patient encounter procedure 10/08/2023 8:20 AM EDT Procedure Visit [facility] [address] [place] [address] James Pacheco, ROAD ADVISOR - LABOR ECONOMICS PROFESSOR [address] [place] [address] [facility] Start: 09-05-2023 Influenza vaccination Influenza Vaccine (#1) [facility] Comment on above: Postponed from 11/06/2022 (Patient Refus ed) Start: 07-14-2023 Thyroid stimulating hormone measurement TSH Level [facility] Start: 07-05-2023 End: 07-04-2024 US Thyroid gland US thyroid Imaging Routine Hypothyroidism, unspecified type Expected: 07/05/2023, Expires: 07/04/2024 [facility] Work Phone: Comment on above: Expected: 07/05/2023, Expires: Start: 07-01-2023 End: 06-30-2024 Thyrotropin [Units/volume] in Serum or Plasma TSH Lab Routine Hypothyroidism, unspecified type Expected: 07/01/2023 (Approximate), Expires: 06/30/2024 [facility]: Comment on above: Expected: 07/01/2023 (Approximate), Expi res: 06/30/2024 Start: 04-16-2023 End: 04-08-2024 CBC panel - Blood by Automated count CBC Lab Routine Insomnia, unspecified type Gastroesophageal reflux disease without esophagitis Arthritis of both hips Chronic left hip pain Hypothyroidism, unspecified type Iron deficiency Multiple renal cysts Expected: 04/16/2023, Expires: 04/08/2024 [facility]: Comment on above: Expected: 04/16/2023, Expires: Start: 04-16-2023 End: 04-08-2024 Comprehensive metabolic 1998 panel - Serum or Plasma Comprehensive metabolic panel Lab Routine Insomnia, unspecified type Gastroesophageal reflux disease without esophagitis Arthritis of both hips Chronic left hip pain Hypothyroidism, unspecified type Iron deficiency Screening for diabetes mellitus Multiple renal cysts Expected: 04/16/2023, Expires: 04/08/[address] [facility] Comment on above: Expected: 04/16/2023, Expires: Start: 04-16-2023 End: 04-08-2024 Lipid 1996 panel - Serum or Plasma Lipid panel Lab Routine Screening for lipoid disorders Expected: 04/16/2023, Expires: 04/08/[address] [facility] Comment on above: Expected: 04/16/2023, Expires: Start: 04-09-2023 End: 06-06-2024 DBT Breast - bilateral screening Bilateral screening mammogram with tomosynthesis Imaging Routine Screening mammogram for breast cancer Expected: 04/09/2023, Expires: 06/06/[address] [facility] Comment on above: Expected: 04/09/2023, Expires: Start: 04-09-2023 End: 04-09-2024 Ferritin [Mass/volume] in Serum or Plasma Ferritin Lab Routine Iron deficiency Expected: 04/09/2023 (Approximate), Expires: 04/09/[address] [facility] Comment on above: Expected: 04/09/2023 (Approximate), Expi res: 04/09/2024 Start: 04-09-2023 End: 04-09-2024 Iron and Iron binding capacity panel - Serum or Plasma Iron and TIBC Lab Routine Iron deficiency Expected: 04/09/2023 (Approximate), Expires: 04/09/2024 [facility] Comment on above: Expected: 04/09/2023 (Approximate), Expi res: 04/09/2024 Start: 04-09-2023 End: 04-09-2024 Transferrin [Mass/volume] in Serum or Plasma Transferrin Lab Routine Iron deficiency Expected: 04/09/2023 (Approximate), Expires: 04/09/2024 [facility] Comment on above: Expected: 04/09/2023 (Approximate), Expi res: 04/09/2024 Start: 04-09-2023 End: 04-09-2024 US Retroperitoneum US retroperitoneum Imaging Routine Multiple renal cysts Expected: 04/09/2023, Expires: 04/09/2024 [facility] Comment on above: Expected: 04/09/2023, Expires: Start: 04-09-2023 End: 04-09-2023 Patient encounter procedure [facility] Start: 03-08-2023 Behavioral Health Screening Behavioral Health Screening [facility] Start: 03-03-2023 Diabetes mellitus screening Diabetes Screening [facility] Start: 02-27-2023 Depression Screening Depression Screening [facility] Start: 02-27-2023 Thyroid stimulating hormone measurement TSH Level [facility] Start: 02-25-2023 COVID-19 Vaccine (3 - Booster for Moderna series) COVID-19 Vaccine (3 - Booster for Moderna series) [facility] Comment on above: Postponed from 09/21/2020 (Patient Refus ed) Start: 02-25-2023 COVID-19 Vaccine (3 - Moderna series) COVID-19 Vaccine (3 - Moderna series) [facility] Comment on above: Postponed from 09/21/2020 (Patient Refus ed) Start: 02-25-2023 DTaP/Tdap/Td Vaccines (1 - Tdap) DTaP/Tdap/Td Vaccines (1 - Tdap) [facility] Comment on above: Postponed from 1986 (Patient Refus ed) Start: 02-25-2023 Hepatitis B Vaccines (1 of 3 - 3-dose series) Hepatitis B Vaccines (1 of 3 - 3-dose series) [facility] Comment on above: Postponed from 1967 (Patient Refus ed) Start: 02-25-2023 Hepatitis C screening Hepatitis C Screening [facility] Comment on above: Postponed from 1985 (Patient Refus ed) Start: 02-25-2023 HIV screening HIV Screening [facility] Comment on above: Postponed from 1967 (Patient Refus ed) Start: 02-24-2023 Screening for malignant neoplasm of breast [facility] Start: 02-12-2023 Screening for malignant neoplasm of breast Breast cancer screen [facility] Start: 11-06-2022 Covid-19 Vaccine () Covid-19 Vaccine () [facility] Start: 11-06-2022 Influenza vaccination [facility] Start: 09-04-2022 Influenza vaccination Influenza Vaccine (#1) [facility] Comment on above: Postponed from 11/06/2021 (Patient Refus ed) Start: 08-28-2022 End: 08-28-2022 Patient encounter procedure [facility] Start: 08-10-2022 End: 08-11-2023 XR Hip - left 3 Views XR hip left 2 or 3 views Imaging Routine Left hip pain Expected: 08/10/2022, Expires: 08/11/2023 [facility] Work Phone: Comment on above: Expected: 08/10/2022, Expires: Start: 05-15-2022 End: 05-16-2023 Thyrotropin [Units/volume] in Serum or Plasma TSH Lab Routine Hypothyroidism, unspecified type Expected: 05/15/2022 (Approximate), Expires: 05/16/2023 [facility] Comment on above: Expected: 05/15/2022 (Approximate), Expi res: 05/16/2023 Start: 05-15-2022 End: 05-16-2023 Thyroxine (T4) free [Mass/volume] in Serum or Plasma T4, free Lab Routine Hypothyroidism, unspecified type Expected: 05/15/2022 (Approximate), Expires: 05/16/2023 [facility] Comment on above: Expected: 05/15/2022 (Approximate), Expi res: 05/16/2023 Start: 05-15-2022 End: 05-16-2023 XR Lumbar spine 4 Views XR lumbar spine complete 4+ views Imaging Routine Chronic bilateral low back pain with right-sided sciatica Expected: 05/15/2022, Expires: 05/16/2023 [facility] Work Phone: Comment on above: Expected: 05/15/2022, Expires: Start: 04-12-2022 Lipid screen Lipid screen [place], [place] Start: 04-01-2022 End: 04-01-2022 Patient encounter procedure 04/01/2022 Office Visit Family Medicine James Pacheco, ROAD ADVISOR - LABOR ECONOMICS PROFESSOR [address] [place] [address] [facility] Start: 03-08-2022 Depression Assessment Depression Assessment [facility] Start: 02-17-2022 DIABETES SCREEN DIABETES SCREEN [facility] Start: 12-05-2021 Thyroid stimulating hormone measurement TSH testing [facility] Start: 11-06-2021 Influenza vaccination INFLUENZA (#1) [facility] Start: 03-08-2021 DEPRESSION ASSESSMENT DEPRESSION ASSESSMENT [facility] Start: 02-24-2021 End: 02-24-2021 Patient encounter procedure 02/24/2021 Office Visit Family Medicine James Pacheco, ROAD ADVISOR - LABOR ECONOMICS PROFESSOR [address] [place] [address] [facility] Start: 02-08-2021 Screening for malignant neoplasm of breast Breast cancer screen [place], [place] Start: 11-06-2020 Influenza vaccination Flu vaccine (#1) [facility] Start: 09-21-2020 COVID-19 VACCINE (3 - Booster for Moderna series) COVID-19 VACCINE (3 - Booster for Moderna series) [facility] Start: 02-27-2020 Cervical cancer screen Cervical cancer screen [place], [place] Start: 02-27-2020 Screening for malignant neoplasm of cervix [facility] Start: 02-18-2020 TSH Qn TSH testing [place], [place] Start: 02-09-[address] [facility] Start: 02-07-2020 DTaP/Tdap/Td vaccine (1 - Tdap) DTaP/Tdap/Td vaccine (1 - Tdap) [place] Comment on above: Postponed from 1978 (Patient Refus ed) Start: 02-07-2020 HIV screen HIV screen [place] Comment on above: Postponed from 1982 (Patient Refus ed) Start: 02-07-2020 Influenza vaccination Flu vaccine (#1) [place] Comment on above: Postponed from 11/06/2018 (Patient Refus ed) Start: 11-07-2019 Influenza vaccination Flu vaccine (#1) [place] Start: 04-08-2019 Shingles Vaccine (2 of 2) Shingles Vaccine (2 of 2) [facility] Start: 03-03-2019 Breast cancer screen Breast cancer screen [place] Start: 02-17-2019 End: 02-17-2019 Office Visit 02/17/2019 Office Visit Family Medicine James Pacheco S, ROAD ADVISOR - LABOR ECONOMICS PROFESSOR [address] [place] [address] [phone] [facility] Start: 09-16-2018 End: 09-16-2018 Appointment Appointment [facility] Work Phone: Start: 04-12-2018 TSH testing TSH testing [place] Start: 2017 Colon cancer screen colonoscopy Colon cancer screen colonoscopy [place] Start: 2017 Pneumococcal Vaccine: 50+ (1 of 1 - PCV) Pneumococcal Vaccine: 50+ (1 of 1 - PCV) [facility] Start: 2017 Screening for malignant neoplasm of colon Colon cancer screen colonoscopy [place] Start: 2017 Shingles Vaccine (1 of 2) Shingles Vaccine (1 of 2) [place] Start: 2017 SHINGRIX VACCINE (1 of 2) SHINGRIX VACCINE (1 of 2) [facility] Start: 02-27-2017 PAP TESTING PAP TESTING [facility] Start: 02-27-2017 Screening for malignant neoplasm of cervix Pap Testing [facility] Start: 02-27-2015 Screening for malignant neoplasm of cervix Cervical Cancer Screening [facility] Start: 02-27-[address] [facility] Start: 2012 COLOGUARD (FIT-DNA) COLOGUARD (FIT-DNA) [facility] Start: [address] [facility] Start: 2012 COLORECTAL CANCER SCREENING COLORECTAL CANCER SCREENING [facility] Start: [address] [facility] Start: 2012 FECAL OCCULT BLOOD FECAL OCCULT BLOOD [facility] Start: 2012 Screening for malignant neoplasm of colon [facility] Start: [address] [facility] Start: 1997 HPV TESTING HPV TESTING [facility] Start: 1997 Screening for malignant neoplasm of cervix [facility] Start: 1986 DTaP/Tdap/Td vaccine (1 - Tdap) DTaP/Tdap/Td vaccine (1 - Tdap) [facility] Start: 1986 DTaP/Tdap/Td Vaccines (1 - Tdap) DTaP/Tdap/Td Vaccines (1 - Tdap) [facility] Start: 1986 Hepatitis B Vaccine (1 of 3 - 19+ 3-dose series) Hepatitis B Vaccine (1 of 3 - 19+ 3-dose series) [facility] Start: [address] [facility] Start: 1985 ANNUAL PCP TEAM CHRONIC DISEASE VISIT ANNUAL PCP TEAM CHRONIC DISEASE VISIT [facility] Start: 1985 Anxiety Screening Anxiety Screening [facility] Start: 1985 Depression Screening Depression Screening [facility] Start: 1985 Diabetes mellitus screening Diabetes Screening [facility] Start: 1985 HEPATITIS C SCREENING HEPATITIS C SCREENING [facility] Start: 1985 Hepatitis C screening Hepatitis C Screening [facility] Start: 1985 HIV SCREENING HIV SCREENING [facility] Start: 1985 HIV screening HIV Screening [facility] Start: 1982 HIV screening HIV screen [facility] Start: 1979 COVID-19 Vaccine (1) COVID-19 Vaccine (1) [facility] Start: 1967 HEPATITIS B (1 of 3 - 3-dose series) HEPATITIS B (1 of 3 - 3-dose series) [facility] Start: 1967 Hepatitis B Vaccine (1 of 3 - 3-dose series) Hepatitis B Vaccine (1 of 3 - 3-dose series) [facility] Start: 1967 Hepatitis C screening Hepatitis C screen [facility] Start: 1967 Screening for malignant neoplasm of colon [facility] Start: 1967 Thyroid Nodule Ultrasound Thyroid Nodule Ultrasound [facility] Cologuard colon canc er screening Cologuard colon cancer screening Lab Routine Screening for colon cancer Ordered: 04/09/2023 [facility] Comment on above: Ordered: 04/09/2023 Cytology Cervical or vaginal smear or scraping study Pap Smear Pathology and Cytology Routine Encounter for Papanicolaou smear for cervical cancer screening 10/08/2023 11:33 AM T [facility] [employer] HPV High Risk PCR HPV High Risk PCR Microbiology Routine Encounter for Papanicolaou smear for cervical cancer screening 10/08/2023 11:33 AM EDT [facility] [employer] End: 02-08-2019 Screening digital breast tomosynthesis bi [facility] Digital Screen Bilateral Imaging Routine Once for 1 Occurrences starting 02/08/2019 until 02/08/2019 [facility] [place] Comment on above: Once for 1 Occurrences starting 02/09/20 19 until 02/08/2019 Screening digital br east tomosynthesis [facility] [place] End: 02-12-2020 Screening digital breast tomosynthesis bi [facility] Digital Screen Bilateral Imaging Routine Once for 1 Occurrences starting 02/12/2020 until 02/12/2020 [facility] [place] Comment on above: Once for 1 Occurrences starting 02/12/20 20 until 02/12/2020 [facility] Immunizations Immunization Date Immunization Notes Care Provider Fa [facility] 07-27-2020 Moderna SARS-CoV-[address] ADVISOR - LABOR ECONOMICS PROFESSOR Work Phone: [facility] 06-22-2020 Moderna SARS-CoV-[address] ADVISOR - LABOR ECONOMICS PROFESSOR Work Phone: [facility] 05-08-2019 hepatitis A vaccine, adult dosage James Pacheco ROAD ADVISOR - LABOR ECONOMICS PROFESSOR Work Phone: [facility] 02-11-2019 zoster vaccine recombinant James Pacheco [facility] 10-24-2018 hepatitis A vaccine, adult dosage James Pacheco [facility] 08-10-2018 zoster vaccine recombinant James Pacheco ROAD ADVISOR - LABOR ECONOMICS PROFESSOR Work Phone: [facility] 1966 measles, mumps and rubella virus vaccine James Pacheco ROAD ADVISOR - LABOR ECONOMICS PROFESSOR Work Phone: [facility] Work Phone: Payers Date Payer Category Payer Self-pay 2018 Private Health Insurance MMO SUP ERMED PPO [id number] 2016 Unknown [employer] M [employer] [address] xxxxxxxxxxxx 2016-Present [phone] [address] [place] [address] xxxxxxxxxxxx [id number] 2000 Commercial Managed C are - HMO MMO SUPERMED [id number] 2000 Unknown 2000 Unknown [id number] Unknown [id number] Unknown [id number] Unknown [id number] Unknown [id number] Unknown [id number] Unknown [id number] Unknown [id number] Unknown [id number] Unknown [id number] Unknown [id number] Social History Date Type Detail Facility Start: 09-16-2018 End: 09-16-2018 Assertion Unknown if ever smoked [facility] Work Phone: Start: 02-06-2019 End: 10-06-2024 Tobacco smoking status [facility] Former [place] Start: 03-08-1984 End: 03-30-1999 History of tobacco use Current [place] Start: 03-08-1984 End: 03-30-1999 History of tobacco use Cigarette [place] Start: 02-06-2019 End: 04-03-2024 Cigarettes smoked current (pack per day) - Reported [facility] Start: 02-06-2019 End: 04-01-2022 Alcohol intake Current non-drinker of alcohol (finding) [place] Start: 02-06-2019 History SDOH Physica l Activity DPW 3 [place] Start: 02-06-2019 History SDOH Financial 4 [place] Start: 02-06-2019 End: 04-08-2020 History SDOH Food Worry 1 [place] Start: 02-06-2019 History SDOH Transport Med 2 [place] Start: 1965 Sex Assigned At Not on file M [place] Start: 03-29-2019 End: 04-03-2024 Tobacco use and exposure Never used [place] Start: 04-08-2020 History SDOH Alcohol Std Drinks 99 [facility] Work Phone: Start: 01-12-2022 End: 07-21-2023 Alcohol intake Not Asked [facility] Start: 1965 Sex Assigned At Female [facility] Start: 10-07-2022 End: 04-03-2024 Tobacco use panel [facility] Start: 02-17-2022 End: 10-07-2022 Exposure to SARS-CoV-2 (event) Not sure [facility] National Score (1-100), lower number is lower risk 77 [facility] How hard is it for you to pay for the very basics like food, housing, medical care, and heating Not very hard [facility] (I/We) worried whether (my/our) food would run out before (I/we) got money to buy more. Never true [facility] [employer] In the past 12 months, was there a time when you were not able to pay the mortgage or rent on time? No [facility] Start: 04-03-2024 End: 10-02-2024 Alcoholic beverage intake Current drinker of alcohol (finding) [facility] Are you now , , , , never or living with a partner? [facility] How often to you hav e a drink containing alcohol? 2-3 time sa week [facility] How many standard drinks containing alcohol do you have on a typical day? 1 or 2 [facility] Do you feel stress - tense, restless, nervous, or anxious, or unable to sleep at night because your mind is troubled all the time - these days [OSQ] To some extent [facility] Start: 04-03-2024 Alcohol Comment social [facility] Start: 10-06-2021 End: 07-05-2024 Sex Female (finding) [facility] How often do you nee d to have someone help you when you read instructions, pamphlets, or other written material from your doctor or pharmacy [SILS] Never [facility] NEGATED: Highlighted rowStart: 09-16-2018 End: 09-16-2018 Alcohol use Alcohol use [facility] Work Phone: NEGATED: Highlighted rowStart: NINF History of tobacco use Passive smoker [facility] Goals Date Patient Goal Desired Activity /State Comment on above: Self- Management Edmund n: Obesity/Weight Loss Patient Stated Goal: Wants to lose 30 pounds Barriers to success: stress Plan for overcoming my barriers: vacation. Encouraged and recommended by provider. Confidence: [phone] Self-Management Plan: Will strive to achieve goal by now Date goal set: 02/06/19 Patient given educational materials below via AVS. Provider Goal: Healthy diet and exercise. Patient received counseling about current lifestyle goal. Advised approximately 150 minutes of cardio, i.e treadmill, exercise in a week. Advised strive for 5 a total 5 servings of fruits and vegetables in a day. Advised a diet lower in carbohydrates and simple sugars. They need to watch consumption of bread, rice, pasta, potatoes, corn, soda, sweetened tea, lemonade, and all other sugar drinks. Patient given after visit summary which includes educational information on Nutrition. Discussed use, benefit, and side effects of prescribed medications and barriers to medication compliance addressed, if applicable. All patient questions answered and patient voiced understanding. Patient was given a copy of this, and was advised to call if any questions. Formatting of this n ote might be different from the original. Self- Management Plan: Obesity/Weight Loss Patient Stated Goal: Wants to lose 30 pounds Barriers to success: stress Plan for overcoming my barriers: vacation. Encouraged and recommended by provider. Confidence: 12/15 Self-Management Plan: Will strive to achieve goal by now Date goal set: 02/06/19 Patient given educational materials below via AVS. Provider Goal: Healthy diet and exercise. Patient received counseling about current lifestyle goal. Advised approximately 150 minutes of cardio, i.e treadmill, exercise in a week. Advised strive for 5 a total 5 servings of fruits and vegetables in a day. Advised a diet lower in carbohydrates and simple sugars. They need to watch consumption of bread, rice, pasta, potatoes, corn, soda, sweetened tea, lemonade, and all other sugar drinks. Patient given after visit summary which includes educational information on Nutrition. Discussed use, benefit, and side effects of prescribed medications and barriers to medication compliance addressed, if applicable. All patient questions answered and patient voiced understanding. Patient was given a copy of this, and was advised to call if any questions. Functional Status Date Assessment Result Facility 04-19-2014 Are you deaf, or do you have serious difficulty hearing No 04/19/2014 9:34 AM Fartun Hoover [facility] 04-19-2014 Are you blind, or do you have serious difficulty seeing, even when wearing glasses No 04/19/2014 9:34 AM KAPIL JoseFartun prater [facility] 04-19-2014 Do you have serious difficulty walking or climbing stairs No 04/19/2014 9:34 AM KAPIL Fartun Quinn [facility] 04-19-2014 Do you have difficul ty dressing or bathing No 04/19/2014 9:34 AM KAPIL QuinnFartun [facility] 04-19-2014 Because of a physica l, mental, or emotional condition, do you have difficulty doing errands alone such as visiting a physician's office or shopping No 04/19/2014 9:34 AM KAPIL QuinnFartun [facility] Mental Status Date Assessment Result Facility 04-19-2014 Because of a physica l, mental, or emotional condition, do you have serious difficulty concentrating, remembering, or making decisions No 04/19/2014 9:[address] [facility] Clinical Notes 03-30-2012 to 10-13-2024 Kiana Orellana MA - 10/02/2024 3:40 PM Mario Pacheco APRN - NATALYA - 10/02/2024 3:40 PM EDTTelephone Encounter - Deidra Varela RN - 09/04/2024 1:23 PM EDT Note Date & Type Note Facility 10-13-2024 Note HNO ID: [id number] Author: FORREST AMBROCIO MD Service: ? Author Type: Physician Type: Progress Notes Filed: 10/13/2024 08:51 Note Text: Follow-up 59 year-old female, patient of Dr. Duke Dale, with history of goitrous primary hypothyroidism. Takes levothyroxine 0.1 mg qd. Reports she feels well, no fatigue. Notes no neck fullness or dysphagia. She had a right oophorectomy and appendectomy in the past. No reactive hypoglycemic problems reported. Defers flu shots. Has been working on losing weight. Had COVID vaccination. Getting total hysterectomy and oophorectomy next week. Current Outpatient Medications on File Prior to Visit Medication Sig levothyroxine (SYNTHROID) 100 mcg tablet TAKE 1 TABLET BY MOUTH EVERY DAY Zinc 50 mg tab Take 50 mg by mouth once daily. ferrous gluconate 324 mg (37.5 mg iron) tablet Take 1 tablet by mouth every other day. mv-min/vit C/glut/lysine/hb124 (IMMUNE SUPPORT ORAL) Take by mouth. MULTIVITAMIN (MULTIPLE VITAMINS ORAL) Take by mouth. Review of patient's allergies indicates: Cortisone Rash Review of systems: Denies fever, fatigue, weakness, change in balance or sensation, visual problems, hearing changes, dizziness, trouble swallowing, nasal difficulties, shortness of breath, chest pain, change in exertional tolerance, foot or leg problems, skin lesions, abdominal pain, diarrhea, constipation, urinary problems, incontinence, back pain, joint pains, anxiety, depression, insomnia, menstrual difficulties, breast lesions/pain/mass. BP 120/78 Pulse 63 Ht 159 cm (5' 2.6) Wt 81.9 kg (180 lb 8.9 oz) LMP 01/04/2021 SpO2 99% BMI 32.40 kg/m? Weight up 7 pounds since 07/2023. Height stable Healthy-appearing obese (BMI > 30) female in no distress. BP normal. Skin: Skin color, texture, turgor normal, no suspicious rashes or lesions Head: normocephalic, no masses, lesions, tenderness or abnormalities Eyes: Anicteric sclera. Pupils are equally round. Extraocular movements are intact. Ears: not examined Nose/Sinuses: Nares normal. No drainage or sinus tenderness. Oropharynx: Lips, mucosa, and tongue normal, teeth and gums not examined. Neck: Supple, no adenopathy; no palpable thyroid enlargement, no discernable nodules. Lungs: Breathing unlabored. Heart: RRR. No ectopy Abdomen: deferred Extremities: No deformities, edema, skin discoloration, clubbing or cyanosis. Good capillary refill. Musculoskeletal: Spine range of motion not tested. Muscular strength intact, No joint swelling, deformity, or tenderness Neuro: Gait normal. Sensation grossly intact. Labs done 10/10/2024 showed TSH 0.41, free T4 1.2, cholesterol 194, TG 133, HDL 64, LDL 105, normal CMP. Thyroid US done in 01/2022 showed heterogenous echotexture bilaterally, left lobe has a 0.7 cm nodule in lower pole, TR4 Thyroid US done in 07/2023 showed right superior 0.6 cm TR4, left lobe has a 0.7 cm nodule in in lower pole, TR3. IMPRESSION: Primary hypothyroidism - continue the current levothyroxine dose Obesity - urged weight loss efforts Goiter- recommended follow-up thyroid US PLAN: Continue current levothyroxine dose. Check thyroid ultrasound Will call with results. See us again in 12 months Forrest Ambrocio M.D. I spent a total of 30 minutes on the date of service which included preparing to see the patient, [id number] patient care, completing clinical documentation, performing a medically appropriate examination, counseling and educating the patient/family/caregiver and ordering medications, tests, or procedures. [facility] 10-02-2024 History of Presen t illness Narrative effie Images from the original note were not included. 10/02/2024 Grace Elkins (: 1965) is a 59 y.o. female , Established patient, here for evaluation of the following chief complaint(s): Eye Problem (Twitching ), Other (Spot on nose), Menopause (Trouble sleeping ), and Health Maintenance (Thyroid Nodule Ultrasound- thyroid specialist orders patient see's next week /Mammogram- agrees ) I obtained verbal consent from the patient and/or patient s guardian to use ambient listening technology during this encounter before the ambient technology was engaged. Assessment/Plan 1. Eyelid twitch (R25.3) - acute, improving - Patient reports three weeks of eye twitching, recently improved - Advised to follow up with eye doctor regarding new glasses prescription 2. Thyroid nodule (E04.1) - Chronic, stable - Follow-up with endocrinology as directed - Scheduled for lab visit to check TSH and T4 free levels 3. Hypothyroidism, unspecified type (E03.9) - Chronic, stable -Follow-up with endocrinology as directed - Will check thyroid function tests at upcoming lab visit 4. Screening for lipoid disorders (Z13.220) - Cholesterol check added to upcoming lab visit 5. 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 Lesion of skin of nose (L98.9) - Examined spot on nose, no concerning features noted - Will continue to monitor for changes 7. Uterine leiomyoma, unspecified location (D25.9) - chronic, stable - Patient scheduled for hysterectomy in two weeks - Enlarged uterus with multiple fibroids noted - Heavy menstrual bleeding reported, though last two periods were skipped 8. Iron deficiency (E61.1) - chronic, stable - Patient taking iron supplements every other day - Iron studies added to upcoming lab panel 9. Screening for diabetes mellitus (Z13.1) - Diabetes screening added to upcoming lab visit 10. Anxiety - Discussed that hormonal changes can contribute to the symptoms - Offered medication for management and declines at this time - Discussed signs and symptoms warranting follow up in the office- verbalized understanding. I performed the above service AI scribed on my behalf, and I have reviewed and confirmed the accuracy and completeness of the medical documentation. Follow up for fasting lab visit and then 6 months for physical. Subjective History of Present Illness Grace Elkins, a 59-year-old female, presents to discuss several health concerns. The patient reports experiencing left eye twitching for three weeks, which has recently improved. She mentions that her new glasses prescription may be too strong, causing strain. She has a history of uterine fibroids and is scheduled for a hysterectomy in two weeks. The patient reports that her uterus is enlarged and tilted, with multiple fibroids. She has been experiencing heavy menstrual bleeding, though she has skipped her last two periods. She reports taking iron supplements every other day due to iron deficiency related to her heavy bleeding. She is also experiencing menopausal symptoms including hot flashes, sleep disturbances, increased depression, and anxiety. The patient is concerned about a spot on her nose that has been present for about a year and has slightly enlarged. The patient mentions that she has a bee sting allergy and needs a refill on her EpiPen. She has not needed to use the previous EpiPen. She is also requesting to get set up for a lab visit to get her fasting blood work completed prior to her physical. She continues to take levothyroxine as prescribed for her hypothyroidism. Is requesting to have her thyroid levels checked prior to her seeing her hoof and shoe inspector next week. The history of thyroid nodules as well. Obtains thyroid ultrasounds via her hoof and shoe inspector. Review of Systems Constitutional: Negative for chills and fever. Respiratory: Negative for shortness of breath. Cardiovascular: Negative for chest pain. Skin: Negative for color change and wound. Psychiatric/Behavioral: The patient is nervous/anxious. Objective Vitals: 10/02/24 1532 BP: 118/74 Pulse: 63 SpO2: 97% Weight: 181 lb 12.8 oz (82.5 kg) Height: 5' 3 (1.6 m) Body mass index is 32.2 kg/m . Physical Exam Constitutional: General: She is not in acute distress. Appearance: She is not ill-appearing or diaphoretic. HENT: Nose: Cardiovascular: Rate and Rhythm: Normal rate and regular rhythm. Heart sounds: Normal heart sounds. No murmur heard. No friction rub. Pulmonary: Effort: Pulmonary effort is normal. Breath sounds: Normal breath sounds. No wheezing, rhonchi or rales. Musculoskeletal: Right lower leg: No edema. Left lower leg: No edema. Skin: General: Skin is warm and dry. Coloration: Skin is not pale. Findings: No erythema or rash. Neurological: Mental Status: She is alert and oriented to person, place, and time. Psychiatric: Mood and Affect: Mood normal. Behavior: Behavior normal. Thought Content: Thought content normal. Judgment: Judgment normal. Data Reviewed Results An electronic signature was used to authenticate this note. SHAE Arechiga CNP 10/02/2024 4:09 PM documented in this encounter [facility] 09-04-2024 Telephone encounter Note Images from the original note were not included. Most recent Endocrinology visit: Last encounter Visit on 07/21/2023 (with Forrest Ambrocio) SPENCER: 07/21/23 NOV: 10/06/[address] Ambrocio while he is out of the office. Thank you 07/21/2023 in [facility] with FORREST AMBROCIO for Acquired hypothyroidism Upcoming Endocrinology Appointments - Next 365 Days Visit Type Date Time Department EST WILMA PATIENT 10/06/2024 8:40 AM [facility] Requested Prescriptions Pending Prescriptions Disp Refills levothyroxine (SYNTHROID) 100 mcg tablet [Pharmacy Med Name: LEVOTHYROXINE 100 MCG TABLET] 30 tablet 1 Sig: TAKE 1 TABLET BY MOUTH EVERY DAY Hemoglobin A1c: None on file in the last 12 months TSH: None on file in the last 12 months Free T3: None on file in the last 12 months Latest Ref Rng & Units 10/29/2023 07/13/2022 02/27/2022 FREE T4 Free T4 0.8 - 1.8 1.0 Free Thyroxine (FT4) - Intl 0.8 - 1.8 1.1 1.0 This result is from an external source. Thyroglobulin: None on file in the last 12 months Vitamin D: None on file in the last 12 months Hematocrit: None on file in the last 12 months Creatinine: None on file in the last 12 months eGFR: None on file in the last 12 months Potassium: None on file in the last 12 months Testosterone: None on file in the last 12 months IGF: None on file in the last 12 months Prolactin: None on file in the last [address] [facility] 09-04-2024 Miscellaneous Notes Images from the original note were not included. Most recent Endocrinology visit: Last encounter Visit on 07/21/2023 (with Forrest Ambrocio) [place]: 07/21/23 NOV: 10/06/[address] Ambrocio while he is out of the office. Thank you 07/21/2023 in [facility] with FORREST AMBROCIO for Acquired hypothyroidism Upcoming Endocrinology Appointments - Next 365 Days Visit Type Date Time Department EST WILMA PATIENT 10/06/2024 8:40 AM [facility] Requested Prescriptions Pending Prescriptions Disp Refills levothyroxine (SYNTHROID) 100 mcg tablet [Pharmacy Med Name: LEVOTHYROXINE 100 MCG TABLET] 30 tablet 1 Sig: TAKE 1 TABLET BY MOUTH EVERY DAY Hemoglobin A1c: None on file in the last 12 months TSH: None on file in the last 12 months Free T3: None on file in the last 12 months Latest Ref Rng & Units 10/29/2023 07/13/2022 02/27/2022 FREE T4 Free T4 0.8 - 1.8 1.0 Free Thyroxine (FT4) - Intl 0.8 - 1.8 1.1 1.0 This result is from an external source. Thyroglobulin: None on file in the last 12 months Vitamin D: None on file in the last 12 months Hematocrit: None on file in the last 12 months Creatinine: None on file in the last 12 months eGFR: None on file in the last 12 months Potassium: None on file in the last 12 months Testosterone: None on file in the last 12 months IGF: None on file in the last 12 months Prolactin: None on file in the last 12 months documented in this encounter [facility] 06-30-2024 Evaluation note Diagnosis Onset Date Resolution Fibroid uterus acute June 9:08am Menorrhagia acute June 30, 025 9:08am [facility] Work Phone: 1(261) 598-469403-07-2025 Radiology Diagnostic study note [facility] Imaging Services [address] [place] [address] Pelvic w/ Transvaginal MR#: [id number] Acct: [id number] Name: GRACE ELKINS Rep #: [id number] : 1965 F 59 From: Lukas Hardwick MD PCP: DUNCAN Rodriguez Status: REG CLI Study:Pelvic w/ Transvaginal Date of Exam: 05/12/24 Exam# [id number] Ordering Dr: aSrah Joseph DO PROCEDURE: PELVIC W/ TRANSVAGINAL REASON FOR EXAM: Abnormal uterine bleeding. TECHNIQUE: Transabdominal and transvaginal pelvic ultrasound COMPARISON: None. FINDINGS: Measurements: Uterus: 12.2 cm x 6.1 cm x 4.9 cm with a volume of 190.7 mL Endometrial Thickness: 11.3 mm. Endometrial thickening. Right Ovary: The patient is status post right oophorectomy. Left Ovary: 2.9 cm x 2.5 cm x 2 cm with a volume of 7.64 mL. TRANSABDOMINAL: Uterus: There are multiple small fibroids seen. The largest is in the fundal portion measuring 1.8 cm x 1.3 cm 1.4 cm. There is a nabothian cyst. Endometrium: Endometrium measures 11.3 mm. It is thickened. Right ovary: Status post right oophorectomy Left ovary: Normal size and echotexture. No large pelvic mass identified. Transvaginal sonography was performed to better visualize the endometrium. TRANSVAGINAL: Uterus: Anteverted. Small uterine fibroids. Endometrium: Endometrium is thickened and measures 11.3 mm. Right ovary: Status post right oophorectomy. Left ovary: Normal size and echotexture. Other adnexal findings: None. Cul-de-sac: No free intraperitoneal fluid identified. No tenderness. US/Pelvic w/ Transvaginal IMPRESSION: Status post right oophorectomy. Multiple small uterine fibroids. Endometrial thickening measuring 11.3 mm. Reading Location: [id number] CC: DUNCAN Pacheco; Dr. Sarah Cardoso, DO ~ Activities Concierge: Signed [facility]02-24-2025 Evaluation note* Diagnosis Onset Date Resolution Status Admit Date Hypothyroidism acute April 092024 9:22am Menorrhagia acute April 9:22am [facility] Work Phone: 1(486) 920-176002-24-2025 Evaluation note* Diagnosis Onset Date Resolution Status Admit Date Hypothyroidism acute April 092024 9:22am Menorrhagia acute April 9:22am Fibroid uterus acute June 9:08am Menorrhagia acute June 30, 2 025 9:08am [facility] Work Phone: 1(561) 366-660002-07-2025 History of Present illness Narrative* Rosy Crooks MA - 04/14/2024 8:20 AM EST Patient verified by last name and . * SHAE Arechiga CNP - 04/14/2024 8:20 AM EST Images from the original note were not included. 04/14/2024 Grace Elkins (: 1965) is a 59 y.o. female , Established patient, here for evaluation ofthe following chief complaint(s): Medication Check, Health Maintenance (HIV/Hep C screen- declines /Hep B- declines ), Hypothyroidism, Iron Deficiency, and GERD ASSESSMENT/PLAN: 1. Gastroesophageal reflux disease without esophagitis - omeprazole OTC (PriLOSEC OTC) 20 MG EC tablet; Take 1 tablet (20 mg) by mouth Daily as needed (GERD). Do not crush, chew, or split., Starting 04/14/2024, Until 04/14/2025 at 2359, OTC - Stable. Will use Omeprazole as needed. Will continue current treatment plan. 2. Hypothyroidism, unspecified type - Stable. Follow up with specialist as directed. 3. Thyroid nodule - Stable. Follow up with specialist as directed. 4. Insomnia, unspecified type - Symptoms stable. 5. Iron deficiency - Stable with iron supplementation. Will continue current treatment plan. 6. Arthritis of both hips - Stable. Follow up with specialist as directed. 7. Chronic left hip pain - Stable. Follow up with specialist as directed. 8. Multiple renal cysts - Symptoms stable. No additional workup needed at this time. 9. Recurrent cold sores - Symptoms stable. Will check about different medication to have on standby. 10. Influenza vaccine refused Follow up in about 6 months (around 10/12/2024) for WFE and fasting blood work. SUBJECTIVE/OBJECTIVE: LETTY Severino presents today for follow up on her chronic health conditions. GERD: States symptoms are stable. Has to watch what she eats. Would like a medication she can take as needed for days when her symptoms are not as well controlled. Denies abdominal pain or dark blacktarry stools. Hypothyroidism/Thyroid Nodule: Actively follows up with endocrinology, Dr. Ambrocio. Continues totake her Levothyroxine. Had an ultrasound of her thyroid in January 2022 and was told findings were stable. Has her thyroid levels monitored by endocrinology. Had thyroid ultrasound in July of 2023 and was told everything was stable. Insomnia: Will average 5-6 hour stretches at a time. States symptoms are worse during the holidays.Wanted to do counseling and never did this. Feels she is doing well overall. Iron Deficiency: Currently on an iron supplement every other day and then daily when on her menstrual cycle. Levels last checked on 10/29/23. Component Ref Range & Units 5 mo ago 2 yr ago IRON, TOTAL 45 - 160 mcg/dL 196 High 124 IRON BINDING CAPACITY 250 - 450 mcg/dL (calc) 388 375 % SATURATION 16 - 45 % (calc) 51 High 33 Component Ref Range & Units 5 mo ago 2 yr ago FERRITIN 16 - 232 ng/mL 11 Low 9 Low Component Ref Range & Units 5 mo ago 2 yr ago TRANSFERRIN 188 - 341 mg/dL 301 278 Chronic Hip Pain/Arthritis: No longer taking the Meloxicam because she read the side effects of themedication and it made her afraid. Weather fluctuations aggravate her symptoms. Taking hot baths helps. Will take Ibuprofen as needed and this is helpful. Has followed up with ortho and has been doing some PT. States next step would be surgery. Renal Cysts: Last renal ultrasound was in July 2023 with stable findings. No cysts noted at that time. Recurrent Cold Sores: Had a reaction to Valtrex and had a prescription for Zovirax ointment but it was not covered by insurance. Will check with her daughter and see what she uses because she took one of her medications once and said she tolerated it well. Health Maintenance: Mammogram: 11/03/23- normal findings. Last pap smear was 10/08/23- normal findings. Declines a Tdap vaccination. Declines to be vaccinated for Hep B. Declines screening for HIV and Hep C. Vaccinated for COVID-19 x2 with most recent dose on 07/27/20- declines additional doses. Colon cancer screening: Cologuard on 05/10/23- normal findings. Is fully vaccinated for shingles. Declines aflu vaccination. Review of Systems Constitutional: Negative for chills and fever. Respiratory: Negative for chest tightness and shortness of breath. Cardiovascular: Negative for chest pain. Gastrointestinal: Negative for abdominal distention, abdominal pain and blood in stool. Endocrine: Negative for cold intolerance and heat intolerance. Genitourinary: Negative for hematuria. Musculoskeletal: Positive for arthralgias. Skin: Negative for color change, pallor, rash and wound. Vitals: 04/14/24 0759 BP: 131/84 BP Location: Left arm Patient Position: Sitting Pulse: 64 SpO2: 98% Weight: 182 lb (82.6 kg) Height: 5' 3 (1.6 m) Body mass index is 32.24 kg/m . Physical Exam Constitutional: General: She is not in acute distress. Appearance: She is not ill-appearing or diaphoretic. Neck: Thyroid: No thyromegaly. Cardiovascular: Rate and Rhythm: Normal rate and regular rhythm. Pulses: Normal pulses. Heart sounds: Normal heart sounds. No murmur heard. No friction rub. Pulmonary: Effort: Pulmonary effort is normal. Breath sounds: Normal breath sounds. No wheezing, rhonchi or rales. Abdominal: General: Abdomen is protuberant. Bowel sounds are normal. Palpations: Abdomen is soft. There is no hepatomegaly, splenomegaly or mass. Tenderness: There is no abdominal tenderness. There is no guarding or rebound. Musculoskeletal: Cervical back: Neck supple. Right lower leg: No edema. Left lower leg: No edema. Skin: General: Skin is warm and dry. Coloration: Skin is not pale. Findings: No erythema or rash. Neurological: Mental Status: She is alert and oriented to person, place, and time. Psychiatric: Mood and Affect: Mood normal. Behavior: Behavior normal. Thought Content: Thought content normal. Judgment: Judgment normal. Data Reviewed Labs: Imaging/Testing: An electronic signature was used to authenticate this note. SHAE Arechiga CNP 04/14/2024 8:30 AM documented in this [facility]01-27-2025 History of Present illness Narrative* SHAE Arechiga CNP - 04/03/2024 1:00 PM EST Images from the original note were not included. 04/03/2024 Grace Elkins (: 1965) is a 59 y.o. female , Established patient, here for evaluation ofthe following chief complaint(s): Referral (To track watchman), Allergic Reaction (Valacyclovir - caused heart racing and hives/This last weekend heart racing, diarrhea), and Health Maintenance (Pcv 20 vaccine- refuse/Flu vaccine- refuse/3rdcovid vaccine- will not get anymore ) ASSESSMENT/PLAN: 1. Recurrent cold sores - acyclovir (Zovirax) 5 % ointment; Apply 5 times daily for 4 days. Space applications every 3 hours., Normal - Will stop oral Acyclovir and use topical ointment instead. 2. Medication reaction, initial encounter - Will stop oral Acyclovir and use topical ointment instead. 3. Menorrhagia with regular cycle - External referral to Gynecology 4. Influenza vaccine refused Follow up in 11 days (on 04/14/2024) for Next scheduled follow-up. SUBJECTIVE/OBJECTIVE: LETTY Severino presents today to discuss concerns regarding not tolerating her Valtrex well anymore- has taken it a couple of times in the past several months and each time she has noticed the sensation her heart is racing, will break out in hives, and have loose stools. Has not had any recurrent of symptoms after stopping the medication. Is also requesting to have a referral to see an Rock Room Worker. States she has a history of heavy menstrualcycles and feels they have been getting heavier with a lot of cramping. States her cycles are regular. Health Maintenance: Declines a flu vaccination. Declines a pneumococcal vaccination. Vaccinated forCOVID-19 x2 with most recent dose on 07/27/20- declines additional doses. Declines screening for HIVand Hep C. Review of Systems Respiratory: Negative for chest tightness and shortness of breath. Cardiovascular: Positive for palpitations. Negative for chest pain. Genitourinary: Positive for menstrual problem. Vitals: 04/03/24 1252 BP: 132/81 Pulse: 67 SpO2: 97% Weight: 183 lb 6.4 oz (83.2 kg) Height: 5' 3 (1.6 m) Body mass index is 32.49 kg/m . Physical Exam Constitutional: General: She is not in acute distress. Appearance: She is not ill-appearing or diaphoretic. Cardiovascular: Rate and Rhythm: Normal rate and regular rhythm. Heart sounds: Normal heart sounds. No murmur heard. No friction rub. Pulmonary: Effort: Pulmonary effort is normal. Breath sounds: Normal breath sounds. No wheezing, rhonchi or rales. Musculoskeletal: Cervical back: Neck supple. Skin: General: Skin is warm and dry. Coloration: Skin is not pale. Findings: No erythema or rash. Neurological: Mental Status: She is alert and oriented to person, place, and time. Psychiatric: Mood and Affect: Mood normal. Behavior: Behavior normal. Thought Content: Thought content normal. Judgment: Judgment normal. Data Reviewed Labs: Imaging/Testing: An electronic signature was used to authenticate this note. SHAE Arechiga CNP 04/03/2024 1:26 PM * Renea Araiza MA - 04/03/2024 1:00 PM EST Patient verified by last name and date of . documented in this [facility]01-27-2025 Instructions* Patient Instructions* SHAE Arechiga CNP - 04/03/2024 1:00 PM EST [facility] [address] [place] [address] P: documented in this encounterSMorrow County [id number] Telephone encounter Note* Telephone Encounter - Nhi Cooper MA - 11/01/2023 9:33 AM EDT Received outside lab results from [employer]. Placed in Dr. Ambrocio'kenney in box for review. In epic. [facility]08-26-2024 Miscellaneous Notes* Telephone Encounter - Nhi Cooper MA - 11/01/2023 9:33 AM EDT Received outside lab results from [employer]. Placed in Dr. Ambrocio'kenney in box for review. In epic. [facility] Evaluation + Plan note* Assessment & Plan Note - Duke Dale MD - 10/18/2023 3:37 PM EDT Associated Problem(s): Bee sting Improved, she now has an EpiPen that she will have to use next time she gets stung, she currently is taking Claritin and Pepcid and she should take those in the morning and if she wants to she can take a Benadryl at night. [id number] Miscellaneous Notes* Assessment & Plan Note - Duke Dale MD - 10/18/2023 3:37 PM EDTAssociated Problem(s): Bee sting Improved, she now has an EpiPen that she will have to use next time she gets stung, she currently is taking Claritin and Pepcid and she should take those in the morning and if she wants to she can take a Benadryl at night. documented in this [facility]08-12-2024 History of Present illness Narrative* Renea Araiza MA - 10/18/2023 2:30 PM EDT Patient verified by last name and date of . * Duke Dale MD - 10/18/2023 2:30 PM EDT Images from the original note were not included. 10/18/2023 Grace Elkins (: 1965) is a 58 y.o. female , Established patient, here for evaluation ofthe following chief complaint(s): Insect Bite (Bee sting ) and ER Follow-up ([place] [facility] 10/16/23 left arm ) ASSESSMENT/PLAN: 1. Bee sting, accidental or unintentional, initial encounter Assessment & Plan: Improved, she now has an EpiPen that she will have to use next time she gets stung, she currently is taking Claritin and Pepcid and she should take those in the morning and if she wants to she can take a Benadryl at night. Follow up if symptoms worsen or fail to improve. SUBJECTIVE/OBJECTIVE: LETTY Jay comes in today for a bee sting on her left arm, she says that she got stung she startedgetting hot her heart started beating fast started getting somewhat short of breath her vision started seeing all kinds of colors and they took her to the emergency room where they gave her antihistamines and epinephrine and sent her home with an EpiPen and told her to take Claritin and Pepcid to help this resolve. She says she is allergic to steroids. Review of Systems Respiratory: Positive for shortness of breath. Cardiovascular: Positive for palpitations. Negative for chest pain. Neurological: Negative for weakness. Vitals: 10/18/23 1421 BP: 127/83 Pulse: 63 SpO2: 97% Weight: 177 lb 9.6 oz (80.6 kg) Height: 5' 3 (1.6 m) Physical Exam Vitals and nursing note reviewed. Constitutional: General: She is not in acute distress. Appearance: Normal appearance. Cardiovascular: Rate and Rhythm: Normal rate and regular rhythm. Heart sounds: Normal heart sounds. No murmur heard. Pulmonary: Effort: Pulmonary effort is normal. Breath sounds: Normal breath sounds. Musculoskeletal: Comments: Left arm with some edema up to and slightly past the elbow. Nonpitting and no erythema orpain. Neurological: Mental Status: She is alert. An electronic signature was used to authenticate this note. Duke Dale MD 10/18/2023 3:37 PM documented in this [facility]08-02-2024 History of Present illness Narrative* Pearl Sanchez - 10/08/2023 8:20 AM EDT Patient was identified by name and Date of . Health Maintenance Addressed with Patient at Visit: Tdap-declined DM screen-today Patient identified by name and date of . Urine specimen cup labeled with patient name and dateof . Urine cup and wipe given to patient. Clean catch urine collected from patient. POCT Urineordered and signed by provider. POCT urine results entered and were sent to provider. Urine culture was ordered and signed by provider. Urine culture was obtained and specimen tube was labeled with patients name and date of , requisition was printed off, verified patient information, then given to [facility]. * SHAE Arechiga CNP - 10/08/2023 8:20 AM EDT Images from the original note were not included. [facility] [address] [address] [facility] [address] Dept: [phone] Dept Loc: [phone] HPI: Grace Elkins is a 58 y.o. female who presents today for her medical conditions/complaints as noted below. Grace Elkins is c/o of Gynecologic Exam and Health Maintenance (Tdap-declined/DM screen-today/) HPI- Grace Elkins presents today for her well female examination. LMP was 09/11/23. Has active lab orders from April that she still needs drawn- is not fasting today so she will need to be scheduled for a fasting lab visit. GERD: States symptoms are stable. Has to watch what she eats. Hypothyroidism/Thyroid Nodule: Actively follows up with endocrinology, Dr. Ambrocio. Continues totake her Levothyroxine. Had an ultrasound of her thyroid in January 2022 and was told findings were stable. Has her thyroid levels monitored by endocrinology- has orders from specialist to get Free T4 and TSH check. Active TSH order in place. Had thyroid ultrasound in July and was told everything was stable. Insomnia: Will average 5-6 hour stretches at a time. States symptoms are worse during the holidays.Wanted to do counseling and never did this. Feels she is doing well overall. Iron Deficiency: Currently on an iron supplement every other day and then daily when on her menstrual cycle. Would like to have her iron levels checked- active orders are in place. Chronic Hip Pain/Arthritis: No longer taking the Meloxicam because she read the side effects of themedication and it made her afraid. Weather fluctuations aggravate her symptoms. Taking hot baths helps. Will take Ibuprofen as needed and this is helpful. Will be seeing an ortho specialist on . Renal Cysts: Last renal ultrasound was in February 2021. Had a repeat ultrasound in July this year with stable findings. 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 Requesting a refill today. Has been experiencing urinary urgency over the past week and would like checked for a UTI. Health Maintenance: Performs self breast examinations; denies nipple discharge, nodules, or discoloration. Denies known family history of breast cancer. Last mammogram was 02/24/22- had a mammogram order placed in April this year and still needs to get this done. Last pap smear was 02/24/21. Declines screening for STI's. Declines a Tdap vaccination. Declines to be vaccinated for Hep B. Declines screening for HIV and Hep C. Vaccinated for COVID-19 x2 with most recent dose on 07/27/20- declinesadditional doses. Colon cancer screening: Cologuard on 05/10/23- normal findings. Is fully vaccinatedfor shingles. See ROS for additional information. Past Medical History: Diagnosis Date Acute cystitis with hematuria 01/06/2022 Heavy menses Hypothyroidism Iron deficiency Obesity Sinus congestion 03/16/2017 Past Surgical History: Procedure Laterality Date APPENDECTOMY CARPAL TUNNEL RELEASE Bilateral 2017 OOPHORECTOMY Right 2005 TONSILLECTOMY (HISTORICAL) Family History Problem Relation Name Age of Onset Diabetes Mother Rheumatologic disease Mother Social History Tobacco Use Smoking status: Former Current packs/day: 0.00 Types: Cigarettes Quit date: 03/08/1999 Years since quittin.6 Smokeless tobacco: Never Substance Use Topics Alcohol use: No E-cigarette/Vaping Questions Responses E-cigarette/Vaping Use Never User Current Outpatient Medications Medication Sig Dispense Refill IRON, FERROUS GLUCONATE, PO Take 324 mg by mouth. 3 times per week levothyroxine (Synthroid, Levoxyl) 100 MCG tablet Take 100 mcg by mouth daily. MULTIPLE VITAMIN PO Take by mouth. zinc 50 MG tablet Take 50 mg by mouth in the morning. valACYclovir (Valtrex) 1 g tablet Take 2 tablets (2,000 mg) by mouth 2 times daily. 12 tablet 1 No current facility-administered medications for this visit. Allergies Allergen Reactions Codeine Hives Triamcinolone Other reaction(s): increased heart beat Azithromycin Hives Cortisone Rash Health Maintenance Topic Date Due Mammogram 02/24/2023 TSH Level 07/14/2023 Hepatitis B Vaccines (1 of 3 - 19+ 3-dose series) 04/09/2024 (Originally 1986) HIV Screening 04/09/2024 (Originally 1965) Hepatitis C Screening 04/09/2024 (Originally 1983) COVID-19 Vaccine (2022-24 season) 2024 (Originally 11/06/2022) Influenza Vaccine (1) 11/07/2023 Cervical Cancer Screening 02/25/2024 Depression Screening 04/09/2024 Diabetes Screening 10/07/2024 Colorectal Cancer Screening 05/09/2026 RSV Immunization aged 60 or older (1 - 1-dose 60+ series) 2027 MMR Vaccines Completed Zoster Vaccines Completed RSV Immunization under 20 Months Aged Out HIB Vaccines Aged Out IPV Vaccines Aged Out Hepatitis A Vaccines Aged Out Meningococcal Vaccine Aged Out Rotavirus Vaccines Aged Out HPV Vaccines Aged Out Pneumococcal Vaccine: Pediatrics (0 to 5 Years) and At-Risk Patients (6 to 64 Years) Aged Out DTaP/Tdap/Td Vaccines Discontinued Subjective: Review of Systems Constitutional: Negative for chills and fever. HENT: Negative for hearing loss and trouble swallowing. Eyes: Negative for pain and visual disturbance. Respiratory: Negative for cough, chest tightness, shortness of breath and wheezing. Cardiovascular: Negative for chest pain, palpitations and leg swelling. Gastrointestinal: Negative for abdominal distention, abdominal pain, blood in stool, constipation and diarrhea. Endocrine: Negative for cold intolerance, heat intolerance, polydipsia, polyphagia and polyuria. Genitourinary: Negative for dysuria, hematuria, pelvic pain, vaginal bleeding, vaginal discharge and vaginal pain. Musculoskeletal: Positive for arthralgias. Negative for gait problem. Skin: Negative for color change, pallor, rash and wound. Neurological: Negative for dizziness, syncope, weakness and headaches. Hematological: Does not bruise/bleed easily. Psychiatric/Behavioral: Negative for dysphoric mood. The patient is not nervous/anxious. Objective: BP 128/74 Pulse 66 Temp 36.6 C (97.9 F) (Infrared) Resp 18 Ht 5' 3 (1.6 m) Wt 174 lb 9.6oz (79.2 kg) LMP 09/11/2023 (Exact Date) SpO2 98% BMI 30.93 kg/m Last 3 PHQ-2 Scores 04/09/2023 0951 Patient Health Questionnaire-2 Score: 0 Physical Exam Constitutional: Oriented to person, place, and time. Appears well-developed and well-nourished. No distress. HENT: Head: Normocephalic and atraumatic. Right Ear: External ear normal. Left Ear: External ear normal. Nose: Nose normal. Mouth/Throat: Oropharynx is clear and moist. No oropharyngeal exudate. Bilateral TM's pearly schmidt with a good cone of light bilaterally. Eyes: Conjunctivae and EOM are normal. Pupils are equal, round, and reactive to light. Right eye exhibits no discharge. Left eye exhibits no discharge. Neck: Normal range of motion. Neck supple. No thyromegaly present. Cardiovascular: Normal rate, regular rhythm, normal heart sounds and intact distal pulses. Exam reveals no friction rub. No murmur heard. Carotid upstrokes brisk and without bruits bilaterally. Pulmonary/Chest: Effort normal and breath sounds normal. No respiratory distress. No wheezes. No rales. Breast Examination: Bilateral breast symmetrical and smooth without masses. Free from discoloration, thickening of the skin, and prominent pores. Nipples without discharge,asymmetry, ulcerations, rashes, and inversions bilaterally. Breasts free from dimpling and retractions. Tail of Bass palpatedbilaterally and free from axillary lymphadenopathy. Abdominal: Soft. Bowel sounds are normal. No distension and no mass. There is no hepatosplenomegaly. There is no tenderness. Pelvic Examination: There is no rash, tenderness, or lesion on the right labia. There is no rash, tenderness or lesion on the left labia. Urethra without swelling or lesion. Rectum negative for external hemorrhoid, lesions, or abnormal tone. Vagina with normal rugae.Uterus normal size, shape, and co nsistency; non tender to compression. Cervix exhibits no motion tenderness, no discharge, and no friability. Right adnexum displays no mass, no tenderness and no fullness. Left adnexum displays no mass, no tenderness and no fullness. Pap smear obtained. Musculoskeletal: Normal range of motion. No edema, tenderness or deformity. Strength 5/5 with flexion and extension of extremities x4. Lymphadenopathy: No cervical adenopathy. Neurological: Alert and oriented to person, place, and time.Normal reflexes. Coordination normal. Skin: Skin is warm and dry. No rash noted. No erythema. No pallor. Psychiatric: Normal mood and affect. Behavior is normal. Judgment and thought content normal. Assessment and Plan: 1. Well female exam with routine gynecological exam - Encouraged a healthy diet low in cholesterol and saturated fats. - Encouraged regular exercise. 2. Gastroesophageal reflux disease without esophagitis - Stable with dietary modifications. 3. Hypothyroidism, unspecified type - T4, free - Stable. Follow up with specialist as directed. - Will notify of blood work results. 4. Thyroid nodule - Stable. Follow up with specialist as directed. 5. Insomnia, unspecified type - Stable. 6. Iron deficiency - Stable with iron supplementation. Will continue current treatment plan. 7. Chronic left hip pain -Not well controlled. Will follow up with ortho as scheduled. 8. Arthritis of both hips -Not well controlled. Will follow up with ortho as scheduled. 9. Multiple renal cysts - Stable. Will repeat renal ultrasound in July 2024 if needed. 10. Recurrent cold sores - valACYclovir (Valtrex) 1 g tablet; Take 2 tablets (2,000 mg) by mouth 2 times daily., Starting Wed10/08/2023, Normal - Stable with PRN Valtrex. Will continue current treatment plan. 11. Urinary urgency - POCT Urinalysis dipstick - Urine culture - UA shows trace hematuria, but negative for leukocytes and nitrites. Will send urine for culture and treat accordingly. 12. There microscopic hematuria - Urine culture - UA shows trace hematuria, but negative for leukocytes and nitrites. Will send urine for culture and treat accordingly. 13. Encounter for Papanicolaou smear for cervical cancer screening - Pap Smear Grace received counseling on the following healthy behaviors: continue current medications Discussed use, benefit, and side effects of prescribed medications. Barriers to medication compliance addressed. All patient questions answered. Pt voiced understanding. Follow Up: Follow up for lab visit for fasting blood work and then 6 months for annual physical. Orders Placed This Encounter Procedures T4, free Standing Status: Future Number of Occurrences: 1 Standing Expiration Date: 10/07/2024 POCT Urinalysis dipstick SHAE Arechiga CNP 10/08/2023 8:56 AM documented in this [facility]08-02-2024 History of Present illness Narrative* Pearl Sanchez - 10/08/2023 8:20 AM EDT Patient was identified by name and Date of . Health Maintenance Addressed with Patient at Visit: Tdap-declined DM screen-today Patient identified by name and date of . Urine specimen cup labeled with patient name and dateof . Urine cup and wipe given to patient. Clean catch urine collected from patient. POCT Urineordered and signed by provider. POCT urine results entered and were sent to provider. Urine culture was ordered and signed by provider. Urine culture was obtained and specimen tube was labeled with patients name and date of , requisition was printed off, verified patient information, then given to [facility]. * James Pacheco ROAD ADVISOR - LABOR ECONOMICS PROFESSOR - 10/08/2023 8:20 AM EDT Images from the original note were not included. [facility] [address] [place] [address] Dept: [phone] Dept Loc: [phone] HPI: Grace Elkins is a 58 y.o. female who presents today for her medical conditions/complaints as noted below. Grace Elkins is c/o of Gynecologic Exam and Health Maintenance (Tdap-declined/DM screen-today/) HPI- Grace Elkins presents today for her well female examination. LMP was 09/11/23. Has active lab orders from April that she still needs drawn- is not fasting today so she will need to be scheduled for a fasting lab visit. GERD: States symptoms are stable. Has to watch what she eats. Hypothyroidism/Thyroid Nodule: Actively follows up with endocrinology, Dr. Ambrocio. Continues totake her Levothyroxine. Had an ultrasound of her thyroid in January 2022 and was told findings were stable. Has her thyroid levels monitored by endocrinology- has orders from specialist to get Free T4 and TSH check. Active TSH order in place. Had thyroid ultrasound in July and was told everything was stable. Insomnia: Will average 5-6 hour stretches at a time. States symptoms are worse during the holidays.Wanted to do counseling and never did this. Feels she is doing well overall. Iron Deficiency: Currently on an iron supplement every other day and then daily when on her menstrual cycle. Would like to have her iron levels checked- active orders are in place. Chronic Hip Pain/Arthritis: No longer taking the Meloxicam because she read the side effects of themedication and it made her afraid. Weather fluctuations aggravate her symptoms. Taking hot baths helps. Will take Ibuprofen as needed and this is helpful. Will be seeing an ortho specialist on Wednesdaynex. Renal Cysts: Last renal ultrasound was in February 2021. Had a repeat ultrasound in July this year with stable findings. 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 Requesting a refill today. Has been experiencing urinary urgency over the past week and would like checked for a UTI. Health Maintenance: Performs self breast examinations; denies nipple discharge, nodules, or discoloration. Denies known family history of breast cancer. Last mammogram was 02/24/22- had a mammogram order placed in April this year and still needs to get this done. Last pap smear was 02/24/21. Declines screening for STI's. Declines a Tdap vaccination. Declines to be vaccinated for Hep B. Declines screening for HIV and Hep C. Vaccinated for COVID-19 x2 with most recent dose on 07/27/20- declinesadditional doses. Colon cancer screening: Cologuard on 05/10/23- normal findings. Is fully vaccinatedfor shingles. See ROS for additional information. Past Medical History: Diagnosis Date Acute cystitis with hematuria 01/06/2022 Heavy menses Hypothyroidism Iron deficiency Obesity Sinus congestion 03/16/2017 Past Surgical History: Procedure Laterality Date APPENDECTOMY CARPAL TUNNEL RELEASE Bilateral 2017 OOPHORECTOMY Right 2005 TONSILLECTOMY (HISTORICAL) Family History Problem Relation Name Age of Onset Diabetes Mother Rheumatologic disease Mother Social History Tobacco Use Smoking status: Former Current packs/day: 0.00 Types: Cigarettes Quit date: 03/08/1999 Years since quittin.6 Smokeless tobacco: Never Substance Use Topics Alcohol use: No E-cigarette/Vaping Questions Responses E-cigarette/Vaping Use Never User Current Outpatient Medications Medication Sig Dispense Refill IRON, FERROUS GLUCONATE, PO Take 324 mg by mouth. 3 times per week levothyroxine (Synthroid, Levoxyl) 100 MCG tablet Take 100 mcg by mouth daily. MULTIPLE VITAMIN PO Take by mouth. zinc 50 MG tablet Take 50 mg by mouth in the morning. valACYclovir (Valtrex) 1 g tablet Take 2 tablets (2,000 mg) by mouth 2 times daily. 12 tablet 1 No current facility-administered medications for this visit. Allergies Allergen Reactions Codeine Hives Triamcinolone Other reaction(s): increased heart beat Azithromycin Hives Cortisone Rash Health Maintenance Topic Date Due Mammogram 02/24/2023 TSH Level 07/14/2023 Hepatitis B Vaccines (1 of 3 - 19+ 3-dose series) 04/09/2024 (Originally 1986) HIV Screening 04/09/2024 (Originally 1967) Hepatitis C Screening 04/09/2024 (Originally 1985) COVID-19 Vaccine (3 - 2022-24 season) 2024 (Originally 11/06/2022) Influenza Vaccine (1) 11/07/2023 Cervical Cancer Screening 02/25/2024 Depression Screening 04/09/2024 Diabetes Screening 10/07/2024 Colorectal Cancer Screening 05/09/2026 RSV Immunization aged 60 or older (1 - 1-dose 60+ series) 2027 MMR Vaccines Completed Zoster Vaccines Completed RSV Immunization under 20 Months Aged Out HIB Vaccines Aged Out IPV Vaccines Aged Out Hepatitis A Vaccines Aged Out Meningococcal Vaccine Aged Out Rotavirus Vaccines Aged Out HPV Vaccines Aged Out Pneumococcal Vaccine: Pediatrics (0 to 5 Years) and At-Risk Patients (6 to 64 Years) Aged Out DTaP/Tdap/Td Vaccines Discontinued Subjective: Review of Systems Constitutional: Negative for chills and fever. HENT: Negative for hearing loss and trouble swallowing. Eyes: Negative for pain and visual disturbance. Respiratory: Negative for cough, chest tightness, shortness of breath and wheezing. Cardiovascular: Negative for chest pain, palpitations and leg swelling. Gastrointestinal: Negative for abdominal distention, abdominal pain, blood in stool, constipation and diarrhea. Endocrine: Negative for cold intolerance, heat intolerance, polydipsia, polyphagia and polyuria. Genitourinary: Negative for dysuria, hematuria, pelvic pain, vaginal bleeding, vaginal discharge and vaginal pain. Musculoskeletal: Positive for arthralgias. Negative for gait problem. Skin: Negative for color change, pallor, rash and wound. Neurological: Negative for dizziness, syncope, weakness and headaches. Hematological: Does not bruise/bleed easily. Psychiatric/Behavioral: Negative for dysphoric mood. The patient is not nervous/anxious. Objective: BP 128/74 Pulse 66 Temp 36.6 C (97.9 F) (Infrared) Resp 18 Ht 5' 3 (1.6 m) Wt 174 lb 9.6oz (79.2 kg) LMP 09/11/2023 (Exact Date) SpO2 98% BMI 30.93 kg/m Last 3 PHQ-2 Scores 04/09/2023 0951 Patient Health Questionnaire-2 Score: 0 Physical Exam Constitutional: Oriented to person, place, and time. Appears well-developed and well-nourished. No distress. HENT: Head: Normocephalic and atraumatic. Right Ear: External ear normal. Left Ear: External ear normal. Nose: Nose normal. Mouth/Throat: Oropharynx is clear and moist. No oropharyngeal exudate. Bilateral TM's pearly schmidt with a good cone of light bilaterally. Eyes: Conjunctivae and EOM are normal. Pupils are equal, round, and reactive to light. Right eye exhibits no discharge. Left eye exhibits no discharge. Neck: Normal range of motion. Neck supple. No thyromegaly present. Cardiovascular: Normal rate, regular rhythm, normal heart sounds and intact distal pulses. Exam reveals no friction rub. No murmur heard. Carotid upstrokes brisk and without bruits bilaterally. Pulmonary/Chest: Effort normal and breath sounds normal. No respiratory distress. No wheezes. No rales. Breast Examination: Bilateral breast symmetrical and smooth without masses. Free from discoloration, thickening of the skin, and prominent pores. Nipples without discharge,asymmetry, ulcerations, rashes, and inversions bilaterally. Breasts free from dimpling and retractions. Tail of Bass palpatedbilaterally and free from axillary lymphadenopathy. Abdominal: Soft. Bowel sounds are normal. No distension and no mass. There is no hepatosplenomegaly. There is no tenderness. Pelvic Examination: There is no rash, tenderness, or lesion on the right labia. There is no rash, tenderness or lesion on the left labia. Urethra without swelling or lesion. Rectum negative for external hemorrhoid, lesions, or abnormal tone. Vagina with normal rugae.Uterus normal size, shape, and co nsistency; non tender to compression. Cervix exhibits no motion tenderness, no discharge, and no friability. Right adnexum displays no mass, no tenderness and no fullness. Left adnexum displays no mass, no tenderness and no fullness. Pap smear obtained. Musculoskeletal: Normal range of motion. No edema, tenderness or deformity. Strength 5/5 with flexion and extension of extremities x4. Lymphadenopathy: No cervical adenopathy. Neurological: Alert and oriented to person, place, and time.Normal reflexes. Coordination normal. Skin: Skin is warm and dry. No rash noted. No erythema. No pallor. Psychiatric: Normal mood and affect. Behavior is normal. Judgment and thought content normal. Assessment and Plan: 1. Well female exam with routine gynecological exam - Encouraged a healthy diet low in cholesterol and saturated fats. - Encouraged regular exercise. 2. Gastroesophageal reflux disease without esophagitis - Stable with dietary modifications. 3. Hypothyroidism, unspecified type - T4, free - Stable. Follow up with specialist as directed. - Will notify of blood work results. 4. Thyroid nodule - Stable. Follow up with specialist as directed. 5. Insomnia, unspecified type - Stable. 6. Iron deficiency - Stable with iron supplementation. Will continue current treatment plan. 7. Chronic left hip pain -Not well controlled. Will follow up with ortho as scheduled. 8. Arthritis of both hips -Not well controlled. Will follow up with ortho as scheduled. 9. Multiple renal cysts - Stable. Will repeat renal ultrasound in July 2024 if needed. 10. Recurrent cold sores - valACYclovir (Valtrex) 1 g tablet; Take 2 tablets (2,000 mg) by mouth 2 times daily., Starting Wed10/08/2023, Normal - Stable with PRN Valtrex. Will continue current treatment plan. 11. Urinary urgency - POCT Urinalysis dipstick - Urine culture - UA shows trace hematuria, but negative for leukocytes and nitrites. Will send urine for culture and treat accordingly. 12. There microscopic hematuria - Urine culture - UA shows trace hematuria, but negative for leukocytes and nitrites. Will send urine for culture and treat accordingly. 13. Encounter for Papanicolaou smear for cervical cancer screening - Pap Smear Grace received counseling on the following healthy behaviors: continue current medications Discussed use, benefit, and side effects of prescribed medications. Barriers to medication compliance addressed. All patient questions answered. Pt voiced understanding. Follow Up: Follow up for lab visit for fasting blood work and then 6 months for annual physical. Orders Placed This Encounter Procedures T4, free Standing Status: Future Number of Occurrences: 1 Standing Expiration Date: 10/07/2024 POCT Urinalysis dipstick SHAE Arechiga CNP 10/08/2023 8:56 AM documented in this [facility]08-02-2024 Miscellaneous Notes* Addendum Note - SHAE Arechiga CNP - 10/08/2023 8:20 AM EDTAddended by: JAMES PACHECO on: 10/11/2023 08:01 AM Modules accepted: Level of Service documented in this [facility]08-02-2024 Note* Addendum Note - SHAE Arechiga CNP - 10/08/2023 8:20 AM EDTAddended by: JAMES PACHECO on: 10/11/2023 08:01 AM Modules accepted: Level of Service [id number] Telephone encounter Note* Telephone Encounter - Sarah Suero RN - 07/27/2023 2:56 PM EDT Notified patient of Dr Ambrocio's message. Patient verbalized understanding and all questions were answered. Encounter closed. [facility]05-21-2024 Miscellaneous Notes* Telephone Encounter - Sarah Suero RN - 07/27/2023 2:56 PM EDT Notified patient of Dr Ambrocio's message. Patient verbalized understanding and all questions were answered. Encounter closed. * Telephone Encounter - Forrest Ambrocio MD - 07/27/2023 2:22 PM EDT Call and tell thyroid ultrasound showed no significant new changes. No further testing needed at this time. Thanks. * Telephone Encounter - Kat Guerrero MA - 07/27/2023 2:15 PM EDT Received a Thyroid Ultrasound report from [facility]. Placed on Dr. Ambrocio for review. documented in this [facility]St[facility] Telephone encounter Note * Telephone Encounter - Forrest Ambrocio MD - 07/27/2023 2:22 PM EDT Call and tell thyroid ultrasound showed no significant new changes. No further testing needed at this time. Thanks. [facility]05-21-2024 Telephone encounter Note* Telephone Encounter - Kat Guerrero MA - 07/27/2023 2:15 PM EDT Received a Thyroid Ultrasound report from [facility]. Placed on Dr. Ambrocio for review. [facility]05-15-2024 Instructions* Patient Instructions* Forrest Ambrocio MD - 07/21/2023 8:04 AM EDT Will send you a message about your thyroid blood tests and ultrasound. See me again in 1 year. documented in this encounterSt. [facility]05[facility] History of Present illness Narrative* Forrest Ambrocio MD - 07/21/2023 7:56 AM EDT Follow-up 58 year-old female, patient of OZIEL Pacheco, with history of goitrous primary hypothyroidism. Takes levothyroxine 0.1 mg qd. Reports she feels well, no fatigue. Notes no neck fullness or dysphagia. She had a right oophorectomy and appendectomy in the past. No reactive hypoglycemic problems reported. Defers flu shots. Has been working on losing weight. Had COVID vaccination. Still having menses. Current Outpatient Medications on File Prior to Visit Medication Sig levothyroxine (SYNTHROID) 100 mcg tablet take 1 tablet by mouth once daily Zinc 50 mg tab Take 50 mg by mouth once daily. ferrous gluconate 324 mg (37.5 mg iron) tablet Take 1 tablet by mouth every other day. mv-min/vit C/glut/lysine/hb124 (IMMUNE SUPPORT ORAL) Take by mouth. MULTIVITAMIN (MULTIPLE VITAMINS ORAL) Take by mouth. Review of patient's allergies indicates: Cortisone Rash Review of systems: Denies fever, fatigue, weakness, change in balance or sensation, visual problems, hearing changes, dizziness, trouble swallowing, nasal difficulties, shortness of breath, chest pain, change in exertional tolerance, foot or leg problems, skin lesions, abdominal pain, diarrhea, cons tipation, urinary problems, incontinence, back pain, joint pains, anxiety, depression, insomnia, menstrual difficulties, breast lesions/pain/mass. BP 124/75 Pulse 71 Ht 159 cm (5' 2.6) Wt 78.8 kg (173 lb 11.6 oz) LMP 01/04/2021 SpO2 99% BMI 31.17 kg/m Weight down 5 pounds since 01/2022. Height stable Healthy-appearing obese (BMI > 30) female in no distress. BP normal. Skin: Skin color, texture, turgor normal, no suspicious rashes or lesions Head: normocephalic, no masses, lesions, tenderness or abnormalities Eyes: Anicteric sclera. Pupils are equally round. Extraocular movements are intact. Ears: not examined Nose/Sinuses: Nares normal. No drainage or sinus tenderness. Oropharynx: Lips, mucosa, and tongue normal, teeth and gums not examined. Neck: Supple, no adenopathy; (+) minimal thyroid enlargement, gland is firm, no discernable nodules. Lungs: Breathing unlabored. Heart: RRR. No ectopy Abdomen: deferred Extremities: No deformities, edema, skin discoloration, clubbing or cyanosis. Good capillary refill. Musculoskeletal: Spine range of motion not tested. Muscular strength intact, No joint swelling, deformity, or tenderness Neuro: Gait normal. Sensation grossly intact. Thyroid US done in 01/2022 showed heterogenous echotexture bilaterally, left lobe has a 0.7 cm nodule in lower pole, TR4 IMPRESSION: Primary hypothyroidism - check TFTs on current levothyroxine dose Obesity - urged weight loss efforts Goiter- recommended follow-up thyroid US PLAN: Continue current levothyroxine dose. Check thyroid blood tests - TSH, free T4 Check thyroid ultrasound Will call with results. See us again in months Forrest Ambrocio M.D. I spent a total of 30 minutes on the date of service which included preparing to see the patient, [id number] patient care, completing clinical documentation, performing a medically appropriate examination, counseling and educating the patient/family/caregiver and ordering medications, tests, or procedures. documented in this [facility]St[facility]04[facility] Telephone encounter Note * Telephone Encounter - Pearl Sanchez - 07/05/2023 1:11 PM EDT Patient notified. Printed and put upfront in folder. Pt will supervisor opening and picking order and take it to [facility]. [facility] [id number] Miscellaneous Notes* Telephone Encounter - Pearl Sanchez - 07/05/2023 1:11 PM EDT Patient notified. Printed and put upfront in folder. Pt will supervisor opening and picking order and take it to [facility]. * Telephone Encounter - SHAE Arechiga CNP - 07/05/2023 12:33 PM EDT She discussed with me at her physical that Dr. Ambrocio had last done an ultrasound in January of 2022 with stable findings. New order placed. Please let Mere know. Thank you. * Telephone Encounter - Jayshree Sandoval - 07/05/2023 11:04 AM EDT Pt states she was supposed to be having a thyroid US done to recheck - wondered if she could get the orders * Telephone Encounter - Duke Dale MD - 07/01/2023 3:40 PM EDT Thyroid test ordered * Telephone Encounter - Jayshree Sandoval - 07/01/2023 3:05 PM EDT Pt is getting blood taken - but was wondering if she was supposed to get her Thyroid rechecked. If so she'd like the orders so she can do it all together. documented in this encounterSMorrow [facility] [id number] Telephone encounter Note* Telephone Encounter - SHAE Arechiga CNP - 07/05/2023 12:33 PM EDT She discussed with me at her physical that Dr. Ambrocio had last done an ultrasound in January of 2022 with stable findings. New order placed. Please let Mere know. Thank you. [facility] [id number] Telephone encounter Note* Telephone Encounter - Jayshree Sandoval - 07/05/2023 11:04 AM EDT Pt states she was supposed to be having a thyroid US done to recheck - wondered if she could get the orders [facility] [id number] Telephone encounter Note* Telephone Encounter - Duke Dale MD - 07/01/2023 3:40 PM EDT Thyroid test ordered [facility] [id number] Telephone encounter Note* Telephone Encounter - Jayshree Sandoval - 07/01/2023 3:05 PM EDT Pt is getting blood taken - but was wondering if she was supposed to get her Thyroid rechecked. If so she'd like the orders so she can do it all together. [facility] [id number] History of Present illness Narrative* Crista Ivey MA - 04/09/2023 7:40 AM EST Patient was verified by name and . * James Pacheco APRN - NATALYA - 04/09/2023 7:40 AM EST Images from the original note were not included. [facility] [facility] [address] [facility] [place] [address] Dept: [phone] Dept Loc: [phone] HPI: Grace Elkins is a 58 y.o. female who presents today for her medical conditions/complaints as noted below. Grace Elkins is c/o of Annual Exam, Blood Work (She wants to schedule a separate appointment for lipid, CMP, and CBC when she gets her thyroid testing orders from her thyroid doctor),and Health Maintenance (Pt declines flu vaccine, TDAP, Hep B vaccine, and only 2 COVID vaccines-didnot get a 3rd/Mammogram-agrees/Colonoscopy-wants to discuss with James/HIV/Hep C screens-states these were done when she had kids and does not think she has gotten HIV or Hep C since then) HPIMain Severino presents today for her annual physical and fasting blood work. Is waiting on blood workorders from her hoof and shoe inspector and will wait to have her blood work drawn until she gets these. GERD: States symptoms are stable. Has to watch what she eats. Hypothyroidism: Actively follows up with endocrinology, Dr. Ambrocio. Continues to take her Levothyroxine. Had an ultrasound of her thyroid in January 2022 and was told findings were stable. Has her thyroid levels monitored by endocrinology. Insomnia: Will average 5-6 hour stretches at a time. States symptoms are worse during the holidays.Wanted to do counseling and never did this. Feels she is doing well overall. Iron Deficiency: Currently on an iron supplement every other day and then daily when on her menstrual cycle. Does have heavy periods. Was discussing a possible ablation with her Rock Room Worker and has not had this done. Would like to have her iron levels checked. Chronic Hip Pain/Arthritis: No longer taking the Meloxicam because she read the side effects of themedication and it made her afraid. Weather fluctuations aggravate her symptoms. Taking hot baths helps. Will take Ibuprofen as needed and this is helpful. Renal Cysts: Last renal ultrasound was in February 2021. Will order repeat imaging today. Health Maintenance: Last mammogram was 02/24/22- normal findings- will order this year's imaging today. Last pap smear was: 02/24/21- normal findings. Vaccinated for COVID-19 (Moderna) x2 with most recent dose on 07/27/20- declines repeat doses. Declines a colonoscopy for colon cancer screening, butis willing to do a home Cologuard test. States she received a Tdap vaccination through her 's work- will check home records. Declines screening for HIV and Hepatitis C. Fully vaccinated for shingles. Declines a flu vaccination. Declines to be vaccinated for Hep B. See ROS for additional information. Past Medical History: Diagnosis Date Acute cystitis with hematuria 01/06/2022 Heavy menses Hypothyroidism Iron deficiency Obesity Sinus congestion 03/16/2017 Past Surgical History: Procedure Laterality Date APPENDECTOMY CARPAL TUNNEL RELEASE Bilateral 2017 OOPHORECTOMY Right 2005 TONSILLECTOMY (HISTORICAL) Family History Problem Relation Name Age of Onset Diabetes Mother Rheumatologic disease Mother Social History Tobacco Use Smoking status: Former Packs/day: .5 Types: Cigarettes Quit date: 03/08/1999 Years since quittin.1 Smokeless tobacco: Never Substance Use Topics Alcohol use: No Current Outpatient Medications Medication Sig Dispense Refill IRON, FERROUS GLUCONATE, PO Take 324 mg by mouth. 3 times per week levothyroxine (Synthroid, Levoxyl) 100 MCG tablet Take 100 mcg by mouth daily. MULTIPLE VITAMIN PO Take by mouth. valACYclovir (Valtrex) 1 g tablet Take 2 tablets (2,000 mg) by mouth 2 times daily. 12 tablet 1 zinc 50 MG tablet Take 50 mg by mouth in the morning. No current facility-administered medications for this visit. Allergies Allergen Reactions Codeine Hives Triamcinolone Other reaction(s): increased heart beat Azithromycin Hives Cortisone Rash Health Maintenance Topic Date Due DTaP/Tdap/Td Vaccines (1 - Tdap) Never done Depression Screening 02/27/2023 Diabetes Screening 03/03/2023 Mammogram 02/24/2023 Influenza Vaccine (1) 09/05/2023 (Originally 11/06/2022) Hepatitis B Vaccines (1 of 3 - 3-dose series) 04/09/2024 (Originally 1965) HIV Screening 04/09/2024 (Originally 1965) Hepatitis C Screening 04/09/2024 (Originally 1983) COVID-19 Vaccine (2022- season) 2024 (Originally 11/06/2022) Colorectal Cancer Screening 04/28/2028 (Originally 1965) TSH Level 07/14/2023 Cervical Cancer Screening 02/25/2024 RSV Immunization aged 60 or older (1 - 1-dose 60+ series) 2027 MMR Vaccines Completed Zoster Vaccines Completed RSV Immunization under 20 Months Aged Out HIB Vaccines Aged Out IPV Vaccines Aged Out Hepatitis A Vaccines Aged Out Meningococcal Vaccine Aged Out Rotavirus Vaccines Aged Out HPV Vaccines Aged Out Pneumococcal Vaccine: Pediatrics (0 to 5 Years) and At-Risk Patients (6 to 64 Years) Aged Out Subjective: Review of Systems Constitutional: Negative for chills and fever. HENT: Negative for hearing loss and trouble swallowing. Eyes: Negative for pain and visual disturbance. Respiratory: Negative for cough, chest tightness, shortness of breath and wheezing. Cardiovascular: Negative for chest pain, palpitations and leg swelling. Gastrointestinal: Negative for abdominal distention, abdominal pain, blood in stool, constipation and diarrhea. Endocrine: Positive for cold intolerance. Negative for heat intolerance, polydipsia, polyphagia andpolyuria. Genitourinary: Negative for dysuria, hematuria, pelvic pain, vaginal discharge and vaginal pain. Musculoskeletal: Positive for arthralgias. Skin: Negative for color change, pallor, rash and wound. Neurological: Negative for dizziness, syncope, weakness and headaches. Hematological: Does not bruise/bleed easily. Psychiatric/Behavioral: Positive for sleep disturbance. Negative for dysphoric mood. The patient isnot nervous/anxious. Objective: BP 107/69 Pulse 78 Ht 5' 3 (1.6 m) Wt 178 lb (80.7 kg) SpO2 99% BMI 31.53 kg/m Physical Exam Constitutional: Oriented to person, place, and time. Appears well-developed and well-nourished. No distress. HENT: Head: Normocephalic and atraumatic. Right Ear: External ear normal. Left Ear: External ear normal. Nose: Nose normal. Mouth/Throat: Oropharynx is clear and moist. No oropharyngeal exudate. Bilateral TM's pearly schmidt with a good cone of light bilaterally. Eyes: Conjunctivae and EOM are normal. Pupils are equal, round, and reactive to light. Right eye exhibits no discharge. Left eye exhibits no discharge. Neck: Normal range of motion. Neck supple. No thyromegaly present. Cardiovascular: Normal rate, regular rhythm, normal heart sounds and intact distal pulses. Exam reveals no friction rub. No murmur heard. Carotid upstrokes brisk and without bruits bilaterally. Pulmonary/Chest: Effort normal and breath sounds normal. No respiratory distress. No wheezes. No rales. Breast Exam: Bilateral breast symmetrical and smooth without masses. Free from discoloration, thickening of the skin, and prominent pores. Nipples without discharge,asymmetry, ulcerations, rashes, and inversions bilaterally. Breasts free from dimpling and retractions. Tail of Bass palpated bilaterally and free from axillary lymphadenopathy. Abdominal: Soft. Bowel sounds are normal. No distension and no mass. There is no hepatosplenomegaly. There is no tenderness. Musculoskeletal: Normal range of motion. No edema, tenderness or deformity. Strength 5/5 with flexion and extension of extremities x4. Lymphadenopathy: No cervical adenopathy. Neurological: Alert and oriented to person, place, and time. Coordination normal. Skin: Skin is warm and dry. No rash noted. No erythema. No pallor. Psychiatric: Normal mood and affect. Behavior is normal. Judgment and thought content normal. Assessment and Plan: 1. Well adult exam - Encouraged a healthy diet low in cholesterol and saturated fats. - Encouraged regular exercise. 2. Gastroesophageal reflux disease without esophagitis - CBC - Comprehensive metabolic panel - Symptoms stable with dietary modifications. 3. Hypothyroidism, unspecified type - CBC - Comprehensive metabolic panel - Stable. Follow up with specialist as directed. 4. Insomnia, unspecified type - CBC - Comprehensive metabolic panel - Symptoms stable. 5. Iron deficiency - CBC - Comprehensive metabolic panel - Ferritin - Iron and TIBC - Transferrin - Will notify of blood work results. 6. Chronic left hip pain - CBC - Comprehensive metabolic panel - Symptoms stable with PRN Ibuprofen. 7. Arthritis of both hips - CBC - Comprehensive metabolic panel - Symptoms stable with PRN Ibuprofen. 8. Multiple renal cysts - CBC - Comprehensive metabolic panel - US retroperitoneum - Will obtain repeat imaging for follow up. 9. Screening for diabetes mellitus - Comprehensive metabolic panel - Will notify of blood work results. 10. Screening mammogram for breast cancer - Bilateral screening mammogram with tomosynthesis 11. Screening for colon cancer - Cologuard colon cancer screening 12. Screening for lipoid disorders - Lipid panel - Will notify of blood work results. Grace received counseling on the following healthy behaviors: continue current medications Discussed use, benefit, and side effects of prescribed medications. Barriers to medication compliance addressed. All patient questions answered. Pt voiced understanding. Follow Up: Follow up in about 6 months (around 10/08/2023) for pap smear/med maintenance. Orders Placed This Encounter Procedures Bilateral screening mammogram with tomosynthesis Standing Status: Future Standing Expiration Date: 06/06/2024 US retroperitoneum Standing Status: Future Standing Expiration Date: 04/09/2024 CBC Standing Status: Future Number of Occurrences: 1 Standing Expiration Date: 04/08/2024 Lipid panel Standing Status: Future Number of Occurrences: 1 Standing Expiration Date: 04/08/2024 Comprehensive metabolic panel Standing Status: Future Number of Occurrences: 1 Standing Expiration Date: 04/08/2024 Ferritin Standing Status: Future Number of Occurrences: 1 Standing Expiration Date: 04/09/2024 Iron and TIBC Standing Status: Future Number of Occurrences: 1 Standing Expiration Date: 04/09/2024 Transferrin Standing Status: Future Number of Occurrences: 1 Standing Expiration Date: 04/09/2024 Cologuard colon cancer screening SHAE Arechiga CNP 04/09/2023 8:48 AM documented in this [facility]12-11-2023 Miscellaneous Notes* Telephone Encounter - Shanti Erazo MA - 02/15/2023 9:29 AM EST Patient phones requesting refills as follows: NEXT APPT WITH YOU IS IN JUNE 2023 Requested Prescriptions Pending Prescriptions Disp Refills levothyroxine (SYNTHROID) 100 mcg tablet [Pharmacy Med Name: LEVOTHYROXINE 100 MCG TABLET] 90 tablet 1 Sig: take 1 tablet by mouth once daily Please review and advise. Shanti Erazo MA documented in this [facility]St[facility] History of Present illness Narrative* SHAE Arechiga CNP - 01/01/2023 2:02 PM EDT Received imaging from [facility] showing arthritic changes in both hips and spondylosis of the lumbosacral region. Called and reviewed findings with Mere over the phone. Offered PT and/or medication management of symptoms. Opted for daily Meloxicam. Will start on medication. Discussed need for PT and/or ortho consult if symptoms persist/worsen- verbalized understanding. documented in this encounterSMorrow County [id number] Miscellaneous Notes* Telephone Encounter - Kat Guerrero MA - 12/31/2022 3:10 PM EDT Reviewed by Dr. Ambrocio. Sent to scanning. Encounter Closed. * Telephone Encounter - Kat Guerrero MA - 12/30/2022 2:51 PM EDT Received X-Ray - Pelvis and Left Hip and Lumbar Spine from [facility]. On your desk for review and advise. documented in this encounterSt. [facility]08-[facility] History of Present illness Narrative* SHAE Arechiga CNP - 10/07/2022 2:00 PM EDT Images from the original note were not included. 10/07/2022 Grace Elkins (: 1965) is a 57 y.o. female , Established patient, here for evaluation ofthe following chief complaint(s): Hypothyroidism, GERD, Medication Check, and Health Maintenance (Hep C--declines, HIV--declines, Tdap--declines, COVID 3--has not had) ASSESSMENT/PLAN: 1. Insomnia, unspecified type - She is to try taking 3 mg of Melatonin at bedtime. If no improvement in sleep after 5-7 days, sheis to increase to 2 tablets at bedtime. If still no improvement in sleep after another 5-7 days, she may increase to 3 tablets- verbalized understanding. 2. Gastroesophageal reflux disease without esophagitis - Stable avoiding known irritants. 3. Hypothyroidism, unspecified type - Stable with Levothyroxine. Will continue current treatment plan. 4. Iron deficiency - Stable with iron supplementation. Will continue current treatment plan. 5. Recurrent cold sores - valACYclovir (Valtrex) 1 g tablet; Take 2 tablets (2,000 mg) by mouth 2 times daily., Starting 10/07/2022, Normal - Stable with PRN Valacyclovir. Will continue current treatment plan. 6. Menorrhagia with regular cycle - Will follow up with her Rock Room Worker. 7. Chronic bilateral low back pain with right-sided sciatica - Will have x-rays completed and provide recommendations accordingly. 8. Chronic left hip pain - Will have x-rays completed and provide recommendations accordingly. 9. Heart palpitations - ECG 12 lead - CLINIC PERFORMED - EKG showed sinus bradycardia. Negative for PAC's or PVC's. Follow up in about 6 months (around 04/09/2023) for physical and fasting blood work. SUBJECTIVE/OBJECTIVE: LETTY - Mere presents today for follow up on her chronic conditions. Insomnia: Has been averaging 4-5 hours per night. The most she will get on average is 6 hours. Would like to try taking Melatonin to help her sleep. GERD: Feel symptoms are stable overall. Spicy food at night continues to aggravate her symptoms. Hypothyroidism: Takes Levothyroxine daily as prescribed. Had her TSH checked in July with stable findings. Iron Deficiency: Takes iron supplementation daily. Had her iron levels checked in February 2022 with stable findings. Recurrent Cold Sores: Will continue to have outbreaks when stressed. Needs a refill on her Valacyclovir today. Has been experiencing heavy periods that has been worsening and is interested in seeing an Rock Room Worker for further evaluation of this. Has seen Dr. Kelly in the past- plans to reach out to her office to schedule an appointment. Continues to experience left hip and low back pain. Has had orders placed for x- rays for further workup but she has not gone to get this done. Will reprint her orders today to get the imaging done. Has been noticing some heart palpitations periodically. Her watch has told her that her heartbeat may be irregular. Would like an EKG today while she is here. Health Maintenance: Declines a Tdap vaccination. Declines to be vaccinated for Hep B. Declines screening for HIV and Hep C. Vaccinated for COVID-19 2 with most recent dose on 07/27/20- declines additional doses. Had an order placed on 02/27/22 for colon cancer screening (Cologuard) and still needs to complete this. Mammogram: 02/24/22. Pap: 02/24/21. Review of Systems Respiratory: Negative for chest tightness and shortness of breath. Cardiovascular: Positive for palpitations. Negative for chest pain and leg swelling. Gastrointestinal: Negative for abdominal distention, abdominal pain and blood in stool. Genitourinary: Positive for menstrual problem. Musculoskeletal: Positive for arthralgias. Skin: Negative for color change, pallor, rash and wound. Vitals: 10/07/22 1344 BP: 114/68 Pulse: 61 SpO2: 98% Weight: 170 lb (77.1 kg) Height: 5' 3 (1.6 m) Body mass index is 30.11 kg/m . Physical Exam Constitutional: General: She is not in acute distress. Appearance: She is not ill-appearing or diaphoretic. Neck: Thyroid: No thyroid mass or thyromegaly. Vascular: No carotid bruit. Cardiovascular: Rate and Rhythm: Normal rate and regular rhythm. Pulses: Normal pulses. Heart sounds: Normal heart sounds. No murmur heard. No friction rub. Pulmonary: Effort: Pulmonary effort is normal. Breath sounds: Normal breath sounds. No wheezing, rhonchi or rales. Abdominal: General: Bowel sounds are normal. Palpations: Abdomen is soft. There is no hepatomegaly, splenomegaly or mass. Tenderness: There is no abdominal tenderness. Musculoskeletal: Cervical back: Neck supple. Lumbar back: Normal. Left hip: Normal. Right lower leg: No edema. Left lower leg: No edema. Skin: General: Skin is warm and dry. Coloration: Skin is not pale. Findings: No erythema. Neurological: Mental Status: She is alert and oriented to person, place, and time. Psychiatric: Mood and Affect: Mood normal. Behavior: Behavior normal. Thought Content: Thought content normal. Judgment: Judgment normal. An electronic signature was used to authenticate this note. SHAE Arechiga CNP 10/07/2022 2:51 PM documented in this [facility]08-02-2023 Instructions* Patient Instructions* SHAE Arechiga CNP - 10/07/2022 2:00 PM EDT Try taking 3 mg of Melatonin at bedtime. If no improvement in sleep after 5-7 days, increase to 2 tablets at bedtime. If still no improvement in sleep after another 5-7 days, may increase to 3 tablets. documented in this [facility]03-10-2023 History of Present illness Narrative* SHAE Arechiga CNP - 05/15/2022 2:20 PM EST Images from the original note were not included. 05/15/2022 Grace Elkins (: 1965) is a 57 y.o. female , Established patient, here for evaluation ofthe following chief complaint(s): Sore Throat (For a couple days and feeling bad) ASSESSMENT/PLAN: 1. Pharyngitis, unspecified etiology - amoxicillin (Amoxil) 500 MG capsule; Take 1 capsule (500 mg) by mouth 2 times daily for 10 days.,Starting Wed05/15/2022, Until Wed05/25/2022, Normal - Due to known exposure and symptoms will treat for infection. 2. Exposure to strep throat - amoxicillin (Amoxil) 500 MG capsule; Take 1 capsule (500 mg) by mouth 2 times daily for 10 days.,Starting Wed05/15/2022, Until Wed05/25/2022, Normal 3. Malaise 4. Chronic bilateral low back pain with right-sided sciatica - XR lumbar spine complete 4+ views 5. Hypothyroidism, unspecified type - TSH - T4, free Follow up in 15 weeks (on 08/28/2022) for Next scheduled follow-up. SUBJECTIVE/OBJECTIVE: LETTY Reyes presents today with concerns of a sore throat, headache, and generally not feeling well. States she was around her granddaughter who was recently diagnosed with strep throat and she isworried she may it as well. States she feels like her throat is on fire- a little better today but was worse yesterday. Denies fevers, cough, or adenopathy. Did detect white spots on the back of her throat. Has been taking Ibuprofen OTC which helps with the throat pain. Also has some chronic low back pain that will radiate around her hips and down her right leg. Is requesting to have an x-ray of her low back for further evaluation. OTC NSAID's are helpful but does not like taking them. Denies loss of bowel or bladder function. Denies known injury/trauma. 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 Will place her lab orders for her today. Review of Systems Constitutional: Negative for chills and fever. HENT: Positive for rhinorrhea and sore throat. Negative for congestion, ear pain, sinus pressure, sinus pain and trouble swallowing. Respiratory: Negative for cough, chest tightness, shortness of breath and wheezing. Cardiovascular: Negative for chest pain. Endocrine: Negative for cold intolerance and heat intolerance. Musculoskeletal: Positive for back pain. Vitals: 05/15/22 1413 BP: 105/66 Pulse: 64 Temp: 36.2 C (97.2 F) TempSrc: Temporal SpO2: 99% Weight: 175 lb (79.4 kg) Height: 5' 3 (1.6 m) Physical Exam Constitutional: General: She is not in acute distress. Appearance: She is not ill-appearing or diaphoretic. Cardiovascular: Rate and Rhythm: Normal rate and regular rhythm. Heart sounds: Normal heart sounds. No murmur heard. No friction rub. Pulmonary: Effort: Pulmonary effort is normal. Breath sounds: Normal breath sounds. No wheezing, rhonchi or rales. Musculoskeletal: Cervical back: Neck supple. Comments: Tenderness in low back and around bilateral hips. Lymphadenopathy: Head: Right side of head: Tonsillar adenopathy present. Left side of head: Tonsillar adenopathy present. Cervical: Cervical adenopathy present. Skin: General: Skin is warm and dry. Coloration: Skin is not pale. Findings: No erythema. Neurological: Mental Status: She is alert and oriented to person, place, and time. Gait: Gait normal. An electronic signature was used to authenticate this note. SHAE Arechiga CNP 05/15/2022 2:32 PM documented in this [facility]03-10-2023 Telephone encounter Note* Telephone Encounter - Tory Funes RN - 05/15/2022 7:06 AM EST Triage message reviewed with clinical staff. Patient appointment confirmed. James will assess at appointment visit. [facility] [id number] Miscellaneous Notes* Telephone Encounter - Tory Funes RN - 05/15/2022 7:06 AM EST Triage message reviewed with clinical staff. Patient appointment confirmed. James will assess at appointment visit. * Telephone Encounter - SHAE Arechiga CNP - 05/15/2022 6:50 AM EST Will see as scheduled. * Telephone Encounter - Tanya Jackson RN - 05/14/2022 3:35 PM EST S: Patient called the sore throat, headache and not felling well and was exposed to grand daughter who was dx with strep throat. - B: Ongoing 2 days. Granddaughter has strep A: Patient c/o sore throat. Feels like throat is on fire. Pain 7/10. Patient states throat is red and has white spots on back of tongue. No fever. No difficulty breathing. No cough. Patient did feel nauseated yesterday. No vomiting. Headache on and off. Located in front of head. Took Ibuprofen with relief. R: Appointment scheduled 3 @ 1420 with Cameron Pacheco CNP. Address and location verified. . Insurance verified. Home care advice provided. Patient instructed to call back with worsening symptoms, concerns or questions. Patient verbalized understanding. Reason for Disposition Patient wants to be seen Protocols used: Sore [id number] documented in this encounterSMorrow County [id number] Telephone encounter Note* Telephone Encounter - SHAE Arechiga CNP - 05/15/2022 6:50 AM EST Will see as scheduled. [facility] [id number] Telephone encounter Note* Telephone Encounter - Tanya Jackson RN - 05/14/2022 3:35 PM EST S: Patient called the sore throat, headache and not felling well and was exposed to grand daughter who was dx with strep throat. - B: Ongoing 2 days. Granddaughter has strep A: Patient c/o sore throat. Feels like throat is on fire. Pain 7/10. Patient states throat is red and has white spots on back of tongue. No fever. No difficulty breathing. No cough. Patient did feel nauseated yesterday. No vomiting. Headache on and off. Located in front of head. Took Ibuprofen with relief. R: Appointment scheduled 05.15.22 @ 1420 with Cameron Pacheco CNP. Address and location verified. . Insurance verified. Home care advice provided. Patient instructed to call back with worsening symptoms, concerns or questions. Patient verbalized understanding. Reason for Disposition Patient wants to be seen Protocols used: Sore [id number] [facility] [id number] History of Present illness Narrative* SHAE Arechiga CNP - 04/01/2022 3:00 PM EST Images from the original note were not included. 04/01/2022 Grace Elkins (: 1965) is a 57 y.o. female , Established patient, here for evaluation ofthe following chief complaint(s): Procedure (Skin tag removal neck and left groin) ASSESSMENT/PLAN: 1. Skin tag 2. Painful skin lesion Follow up if symptoms worsen or fail to improve. SUBJECTIVE/OBJECTIVE: HPI - Grace presents today requesting to have multiple skin tags removed from her neck. States they can catch on her clothing and jewelry which is painful. Review of Systems Skin: Negative for wound. Raises areas on neck. There were no vitals filed for this visit. Physical Exam Constitutional: General: She is not in acute distress. Appearance: She is not ill-appearing or diaphoretic. Skin: General: Skin is warm and dry. Neurological: Mental Status: She is alert and oriented to person, place, and time. Psychiatric: Mood and Affect: Mood normal. Behavior: Behavior normal. Thought Content: Thought content normal. Judgment: Judgment normal. Skin Tag Removal Procedure Indication: Skin Tag x4 Site: Neck Procedure: Area prepped sterilely with betadine. Lesions amputated with hot cautery. PSO and Band Aid applied as needed. Patient was instructed on wound care. Patient tolerated procedure well and without complications. An electronic signature was used to authenticate this note. SHAE Arechiga CNP 04/01/2022 4:01 PM documented in this [facility]01-25-2023 History of Present illness Narrative* SHAE Arechiga CNP - 04/01/2022 3:00 PM EST Images from the original note were not included. 04/01/2022 Grace Elkins (: 1965) is a 57 y.o. female , Established patient, here for evaluation ofthe following chief complaint(s): Procedure (Skin tag removal neck and left groin) ASSESSMENT/PLAN: 1. Skin tag 2. Painful skin lesion Follow up if symptoms worsen or fail to improve. SUBJECTIVE/OBJECTIVE: HPI - Grace presents today requesting to have multiple skin tags removed from her neck. States they can catch on her clothing and jewelry which is painful. Would also like to review lab results from 02/27/22. States she did not hear from the office regarding the results and had some questions regarding the results. Reviewed together and answered questions and concerns. Review of Systems Skin: Negative for wound. Raises areas on neck. There were no vitals filed for this visit. Physical Exam Constitutional: General: She is not in acute distress. Appearance: She is not ill-appearing or diaphoretic. Skin: General: Skin is warm and dry. Neurological: Mental Status: She is alert and oriented to person, place, and time. Psychiatric: Mood and Affect: Mood normal. Behavior: Behavior normal. Thought Content: Thought content normal. Judgment: Judgment normal. Skin Tag Removal Procedure Indication: Skin Tag x4 Site: Neck Procedure: Area prepped sterilely with betadine. Lesions amputated with hot cautery. PSO and Band Aid applied as needed. Patient was instructed on wound care. Patient tolerated procedure well and without complications. An electronic signature was used to authenticate this note. SHAE Arechiga CNP 04/01/2022 4:01 PM documented in this [facility]01-17-2023 Telephone encounter Note* Telephone Encounter - Crista Ivey MA - 03/24/2022 9:58 AM EST Prescription Request: Last medication check: not found Last physical exam: 02/27/22 Next scheduled appointment: 04/01/22 Last date of refill on this medication: 02/27/22 #30 [id number] Miscellaneous Notes* Telephone Encounter - Crista Ivey MA - 03/24/2022 9:58 AM EST Prescription Request: Last medication check: not found Last physical exam: 02/27/22 Next scheduled appointment: 04/01/22 Last date of refill on this medication: 02/27/22 #30 0 refills [id number] Miscellaneous Notes* Telephone Encounter - Nhi Cooper Ma - 03/05/2022 11:23 AM EST [employer] message sent with alert if not read. CLOSED * Telephone Encounter - Forrest Ambrocio MD - 03/05/2022 11:06 AM EST Call and tell to increase levothyroxine from 0.088 mg to 0.1 mg daily. Check TSH again in 6-8 weeks, I sent lab letter via [employer]. Thanks. The following approved medication requests have been transmitted electronically. Requested Prescriptions Signed Prescriptions Disp Refills levothyroxine (SYNTHROID) 100 mcg tablet 90 tablet 3 Sig: Take 1 tablet by mouth once daily. Authorizing Provider: FORREST AMBROCIO MD * Telephone Encounter - Nhi Cooper Ma - 03/05/2022 9:49 AM EST Received outside lab results from [employer]. Placed in Dr. Ambrocio's in box for review. Entered in [employer], except for CBC will be sent for scanning. [facility] Miscellaneous Notes* Telephone Encounter - Nhi Cooper Ma - 01/22/2022 2:45 PM EST Called and spoke with PT, expressed understanding Encounter closed * Telephone Encounter - Forrest Ambrocio MD - 01/22/2022 2:33 PM EST Tell her thyroid ultrasound shows one small nodule, we will repeat US again in one year. * Telephone Encounter - Nhi Cooper Ma - 01/22/2022 10:12 AM EST Thyroid US from [facility] on your desk for review. [facility] History of Past illness Narrative* Problem Noted Date Resolved Date Anemia 03/30/2012 04/19/2014 Reactive hypoglycemia 04/07/2010 05/31/2018 documented as of this encounter (statuses as of 01/22/2022) [facility] of Past illness Narrative* Problem Noted Date Resolved Date Anemia 03/30/2012 04/19/2014 Reactive hypoglycemia 04/07/2010 05/31/2018 documented as of this encounter (statuses as of 03/11/2022) [facility] illness Narrative* Problem Noted Date Resolved Date Anemia 03/30/2012 04/19/2014 Reactive hypoglycemia 04/07/2010 05/31/2018 documented as of this encounter (statuses as of 03/11/2022) [facility] illness Narrative* Problem Noted Date Diagnosed Date Resolved Date Anemia 03/30/2012 04/19/2014 Reactive hypoglycemia 04/07/20102018 documented as of this encounter (statuses as of 01/01/2023) [facility] illness Narrative* Problem Noted Date Diagnosed Date Resolved Date Anemia 03/30/2012 04/19/2014 Reactive hypoglycemia 04/07/20102018 documented as of this encounter (statuses as of 02/15/2023) [facility] Diagnosis Acquired hypothyroidism Unspecified hypothyroidism [facility]* Diagnosis Thyroid nodule Nontoxic uninodular goiter documented in this encounter [facility] noteNo assessment information availableWMagruder Hospital Work Phone: Evaluation note* Diagnosis Acquired hypothyroidism- Primary Unspecified hypothyroidism documented in this encounter [facility] note* Diagnosis Left hip pain- Primary Pain in joint, pelvic region and thigh documented in this encounter [facility] note* Diagnosis Insomnia, unspecified type- Primary Gastroesophageal reflux disease without esophagitis Esophageal reflux Hypothyroidism, unspecified type Iron deficiency Disorders of iron metabolism Recurrent cold sores Herpes simplex without mention of complication Menorrhagia with regular cycle Chronic bilateral low back pain with right-sided sciatica Chronic left hip pain Heart palpitations Palpitations documented in this encounter [facility] note* Diagnosis Spondylosis of lumbar joint- Primary Arthritis of both hips documented in this encounter [facility] note* Diagnosis Acquired hypothyroidism Unspecified hypothyroidism documented in this encounter [facility] note* Diagnosis Well adult exam- Primary Routine general medical examination at a [facility] Gastroesophageal reflux disease without esophagitis Esophageal reflux Hypothyroidism, unspecified type Insomnia, unspecified type Iron deficiency Disorders of iron metabolism Chronic left hip pain Arthritis of both hips Multiple renal cysts Screening for diabetes mellitus Screening mammogram for breast cancer Screening for colon cancer Special screening for malignant neoplasms, colon Screening for lipoid disorders documented in this encounter [facility] note* Diagnosis Hypothyroidism, unspecified type- Primary documented in this encounter [facility] note* Diagnosis Acquired hypothyroidism- Primary Unspecified hypothyroidism Thyroid nodule Nontoxic uninodular goiter Obesity, Class I, BMI 30-34.9 Obesity, unspecified documented in this encounter [facility] note* Diagnosis Thyroid nodule- Primary Nontoxic uninodular goiter documented in this encounter [facility] note* Diagnosis Well female exam with routine gynecological exam- Primary Routine gynecological examination Gastroesophageal reflux disease without esophagitis Esophageal reflux Hypothyroidism, unspecified type Thyroid nodule Nontoxic uninodular goiter Insomnia, unspecified type Iron deficiency Disorders of iron metabolism Chronic left hip pain Arthritis of both hips Multiple renal cysts Recurrent cold sores Herpes simplex without mention of complication Urinary urgency Urgency of urination Other microscopic hematuria Encounter for Papanicolaou smear for cervical cancer screening documented in this encounter [facility] note* Diagnosis Well female exam with routine gynecological exam- Primary Routine gynecological examination Gastroesophageal reflux disease without esophagitis Esophageal reflux Hypothyroidism, unspecified type Thyroid nodule Nontoxic uninodular goiter Insomnia, unspecified type Iron deficiency Disorders of iron metabolism Chronic left hip pain Arthritis of both hips Multiple renal cysts Recurrent cold sores Herpes simplex without mention of complication Urinary urgency Urgency of urination Other microscopic hematuria Encounter for Papanicolaou smear for cervical cancer screening documented in this encounter [facility] note* Diagnosis Bee sting, accidental or unintentional, initial encounter- Primary documented in this encounter [facility] note* Diagnosis Screening mammogram for breast cancer documented in this encounter [facility] note* Diagnosis Encounter for screening mammogram for malignant neoplasm of breast- Primary documented in this encounter [facility] note* Diagnosis Hypothyroidism, unspecified type documented in this encounter [facility] note* Diagnosis Skin tag- Primary Unspecified hypertrophic and atrophic condition of skin Painful skin lesion documented in this encounter [facility] note* Diagnosis Pharyngitis, unspecified etiology- Primary Exposure to strep throat Contact with or exposure to other communicable diseases Malaise Other malaise and fatigue Chronic bilateral low back pain with right-sided sciatica Hypothyroidism, unspecified type documented in this encounter [facility] note* Diagnosis Acute cystitis with hematuria- Primary Recurrent cold sores Herpes simplex without mention of complication Bee sting, accidental or unintentional, initial encounter- Primary Recurrent cold sores- Primary Herpes simplex without mention of complication Medication reaction, initial encounter Menorrhagia with regular cycle Influenza vaccine refused documented in this encounter [facility] note* Diagnosis Acute cystitis with hematuria- Primary Recurrent cold sores Herpes simplex without mention of complication Gastroesophageal reflux disease without esophagitis- Primary Esophageal reflux Hypothyroidism, unspecified type Thyroid nodule Nontoxic uninodular goiter Insomnia, unspecified type Iron deficiency Disorders of iron metabolism Arthritis of both hips Chronic left hip pain Multiple renal cysts Recurrent cold sores Herpes simplex without mention of complication Influenza vaccine refused documented in this encounter [facility] note* Diagnosis Acquired hypothyroidism Unspecified hypothyroidism [facility]* Diagnosis Acute cystitis with hematuria- Primary Recurrent cold sores Herpes simplex without mention of complication Eyelid twitch- Primary Abnormal involuntary movements Thyroid nodule Nontoxic uninodular goiter Hypothyroidism, unspecified type Screening for lipoid disorders Bee sting allergy Lesion of skin of nose Uterine leiomyoma, unspecified location Iron deficiency Disorders of iron metabolism Screening for diabetes mellitus Anxiety Anxiety state, unspecified documented in this encounter [facility] for referral (narrative)No reason for referral information availableWMagruder Hospital Work Phone: Summary Purpose Family History No Family History Records Found Relationship Condition Age at Onset Recorded Date/T krystal mother Cardiac disease Unknown Disorder of thyroid Unknown Advance Directives No Advanced Directives Records FoundDocuments on File Type Date Recorded 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 Assessments There may be information available, but it has not been provided by the sender. Review of System There may be information available, but it has not been provided by the sender. History of Present Illness There may be information available, but it has not been provided by the sender. Chief Complaint and Reason for Visit Chief Complaint GOITER Chief Complaint ORDERS SCANNED Chief Complaint Admit Date MENORRHAGIA WITH REGULAR MENSES May 01, 2024 9:22am AUB May 12, 2024 12:4 7pm Reason for Visit Admit Date Hypothyroidism May 01, 2024 9:22am Menorrhagia May 01, 2024 9:22am Chief Complaint Admit Date MENORRHAGIA WITH REGULAR MENSES May 01, 2024 9:22am AUB May 12, 2024 12:4 7pm EMB June 30, 2024 9:0 8am Reason for Visit Admit Date Hypothyroidism May 01, 2024 9:22am Menorrhagia May 01, 2024 9:22am Fibroid uterus June 30, 2024 9:0 8am Menorrhagia June 30, 2024 9:0 8am Chief Complaint Admit Date EMB June 30, 2024 9:0 8am TRHBS Cysto possible left Ooph October 1:25pm Reason for Visit Admit Date Fibroid uterus June 30, 2024 9:0 8am Menorrhagia June 30, 2024 9:0 8am Reason for Referral Specialty Diagnoses / Procedures Referred By Contac t Referred To Contact Diagnoses Spondylosis of lumbar joint Arthritis of both hips James Pacheco S, ROAD ADVISOR - LABOR ECONOMICS PROFESSOR [address] [place] [address] Referral ID Status Reason Start Date Expiration Date Visits Re quested Visits Authorized [id number] Closed 1 1 Additional Source Comments INFORMATION SOURCE (unrecogn ized section and content) DATE CREATED AUTHOR 08/31/2017 [facility] DATE CREATED AUTHOR AUTHOR'S ORGANIZ ATION 07/21/2019 [facility] DATE CREATED AUTHOR AUTHOR'S ORGANIZ ATION 03/07/2021 [facility] DATE CREATED AUTHOR AUTHOR'S ORGANIZ ATION 10/13/2024 [facility] DATE CREATED AUTHOR AUTHOR'S ORGANIZ ATION 10/14/2024 [facility] DATE CREATED AUTHOR AUTHOR'S ORGANIZ ATION 10/15/2024 [facility] DATE CREATED AUTHOR AUTHOR'S ORGANIZ ATION 10/15/2024 [facility] Reason for Visit (unrecogniz ed section and content) Reason For Visit Description New Complaint Preliminary reason f or visit data, not yet signed by the author as of right foot pain Reason Comments Refill Request Reason Comments Thyroid [facility] Reason Comments Outside Lab Results [facility] Reason Comments Hypothyroidism GERD Medication Check Health Maintenance Hep C--declines, HIV --declines, Tdap--declines, COVID 3--has not had Reason Comments X-Ray - Pelvis and Left Hip and Lumbar S [facility] Reason Comments Annual Exam Blood Work She wants to schedul e a separate appointment for lipid, CMP, and CBC when she gets her thyroid testing orders from her thyroid doctor Health Maintenance Pt declines flu vacc ine, TDAP, Hep B vaccine, and only 2 COVID vaccines-did not get a [id number] to discuss with JuliannV/Hep C screens-states these were done when she had kids and does not think she has gotten HIV or Hep C since then Reason Onset Date Comments Thyroid bloodwork? 07/01/2023 US thyroid 07/01/2023 Reason Comments Follow Up Reason Comments Thyroid Ultrasound Report [facility] Reason Comments Gynecologic Exam Health Maintenance Tdap-declinedDM scre en-today Reason Comments Insect Bite Bee sting ER Follow-up [place] [facility] 10/16/23 l eft arm Reason Comments Outside Lab Results [facility] Reason Comments Med Refill Reason Comments Procedure Skin tag removal nec k and left groin Reason Comments Sore Throat For a couple days an d feeling bad Reason Onset Date Comments Sore Throat 05/14/2022 Reason Comments Referral To track watchman Allergic Reaction Valacyclovir - cause d heart racing and hivesThis last weekend heart racing, diarrhea Health Maintenance Pcv 20 vaccine- refu seFlu vaccine- [id number] covid vaccine- will not get anymore Reason Comments Medication Check Health Maintenance HIV/Hep C screen- de clines Hep B- declines Hypothyroidism Iron Deficiency GERD Reason Comments Eye Problem Twitching Other Spot on nose Menopause Trouble sleeping Health Maintenance Thyroid Nodule Ultra sound- thyroid specialist orders patient see's next week Mammogram- agrees Care Teams (unrecognized sec tion and content) Optician Manager Relationship Specialty Start Date End Date Duke Dale MD [place], [place] [id number] PCP - General 12/31/15 Optician Manager Relationship Specialty Start Date End Date Duke Dale [address] [place], [place] [id number] PCP - General Family Medicine 03/29/17 Optician Manager Relationship Specialty Start Date End Date Duke Dale [address] [place], [place] [id number] PCP - General Family Medicine 03/29/17 Optician Manager Relationship Specialty Start Date End Date Duke Dale [address] [place] [address] PCP - General Family Medicine 03/29/17 Optician Manager Relationship Specialty Start Date End Date Duke Dale [address] [place], [place] [id number] PCP - General Family Medicine 03/29/17 Optician Manager Relationship Specialty Start Date End Date Duke Dale MD [address] [place] [address] PCP - General 12/31/15 Optician Manager Relationship Specialty Start Date End Date Duke Dale MD [address] [place] [address] PCP - General 12/31/15 Optician Manager Relationship Specialty Start Date End Date Duke Dael [address] [place] [address] PCP - General Family Medicine 03/29/17 Optician Manager Relationship Specialty Start Date End Date Duke Dale MD [address] [place] [address] PCP - General 12/31/15 Team Status: Active Member Role Status Dates Dr. Shree Guillaume DO Family Provider Active Dr. Forrest Ambrocio MD Primary Care Provider Acti ve Team Status: Inactive Member Role Status Dates Dr. Forrest Ambrocio MD Primary Care Provider Acti ve James Pacheco HYDROELECTRIC OPERATOR, HYDROELECTRIC OPERATOR-C Attending Provider, Referring Pro vider Active Optician Manager Relationship Specialty Start Date End Date Duke Dale [address] [place] [address] PCP - General Family Medicine 03/29/17 Optician Manager Relationship Specialty Start Date End Date Duke Dale MD [address] [place] [address] PCP - General 12/31/15 Optician Manager Relationship Specialty Start Date End Date Duke Dale MD [address] [place] [address] PCP - General 12/31/15 Optician Manager Relationship Specialty Start Date End Date Duke Dale [address] [facility] [place] [address] PCP - General Family Medicine 03/29/17 Optician Manager Relationship Specialty Start Date End Date Duke Dale MD [address] [facility] [place] [address] PCP - General 12/31/15 Optician Manager Relationship Specialty Start Date End Date Duke Dale MD [address] [place] [address] PCP - General 12/31/15 Optician Manager Relationship Specialty Start Date End Date Duke Dale MD [address] [facility] [place] [address] PCP - General 12/31/15 Optician Manager Relationship Specialty Start Date End Date Duke Dale [address] [facility] [place] [address] PCP - General Family Medicine 03/29/17 Optician Manager Relationship Specialty Start Date End Date Duke Dale [address] [facility] [place] [address] PCP - General Family Medicine 03/29/17 Optician Manager Relationship Specialty Start Date End Date Duke Dale MD [address] [facility] [place] [address] PCP - General 12/31/15 Optician Manager Relationship Specialty Start Date End Date Duke Dale MD [address] [place] [address] PCP - General 12/31/15 Optician Manager Relationship Specialty Start [place] [address] PCP - General 12/31/15 Optician Manager Relationship Specialty Start Date End Date Duke Dale MD [address] [place] [id number] PCP - General 12/31/15 Optician Manager Relationship Specialty Start Date End Date Duke Dale MD [address] [place] [id number] PCP - General 12/31/15 Optician Manager Relationship Specialty Start Date End Date Duke Dale MD [address] [place] [id number] PCP - General 12/31/15 Optician Manager Relationship Specialty Start Date End Date Duke Dale MD [address] [place] [id number] PCP - General 12/31/15 Team Status: Active Member Role Status Dates James Pacheco HYDROELECTRIC OPERATOR, HYDROELECTRIC OPERATOR-C Primary Care Provider Active Team Status: Inactive Member Role Status Dates James Pacheco HYDROELECTRIC OPERATOR, HYDROELECTRIC OPERATOR-C Primary Care Provider Active Start: May 01, 2024 End: May 01, 2024 James Pacheco HYDROELECTRIC OPERATOR, HYDROELECTRIC OPERATOR-C Referring Provider Active S tart: May 01, 2024 End: May 01, 2024 Dr. Sarah Cardoso , Attending Provider Activ e Start: May 01, 2024 End: May 01, 2024 Team Status: Inactive Member Role Status Dates James Pacheco HYDROELECTRIC OPERATOR, HYDROELECTRIC OPERATOR-C Primary Care Provider Active Start: May 01, 2024 End: May 01, 2024 Dr. Sarah Cardoso , DO Attending Provider Activ e Start: May 01, 2024 End: May 01, 2024 Dr. Sarah Cardoso , DO Referring Provider Activ e Start: May 01, 2024 End: May 01, 2024 Team Status: Inactive Member Role Status Dates James Pacheco HYDROELECTRIC OPERATOR, HYDROELECTRIC OPERATOR-C Primary Care Provider Active Start: May 12, 2024 End: May 12, 2024 Dr. Sarah Cardoso , Attending Provider Activ e Start: May 12, 2024 End: May 12, 2024 Dr. Sarah Cardoso , DO Referring Provider Activ e Start: May 12, 2024 End: May 12, 2024 Team Status: Inactive Member Role Status Dates James Pacheco HYDROELECTRIC OPERATOR, HYDROELECTRIC OPERATOR-C Primary Care Provider Active Start: June 30, 2024 End: June 30, 2024 James Pacheco HYDROELECTRIC OPERATOR, HYDROELECTRIC OPERATOR-C Referring Provider Active S tart: June 30, 2024 End: June 30, 2024 Dr. Sarah Cardoso , Attending Provider Activ e Start: June 30, 2024 End: June 30, 2024 Team Status: Inactive Member Role Status Dates James Pacheco HYDROELECTRIC OPERATOR, HYDROELECTRIC OPERATOR-C Primary Care Provider Active Start: June 30, 2024 End: June 30, 2024 Dr. Sarah Cardoso , Attending Provider Activ e Start: June 30, 2024 End: June 30, 2024 Dr. Sarah Cardoso , Referring Provider Activ e Start: June 30, 2024 End: June 30, 2024 Optician Manager Relationship Specialty Start Date End Date Duke Dale MD [address] [place], [place] [phone] PCP - General 12/31/15 James Pacheco APRN - NATALYA [address] [place] [phone] Nurse Practitioner Nurse Practitioner Family 09/06/24 Team Status: Active Member Role/Relationship Status Dates James Pacheco HYDROELECTRIC OPERATOR, HYDROELECTRIC OPERATOR-C Primary Care Provider Active Team Status: Inactive Member Role/Relationship Status Dates James Pacheco HYDROELECTRIC OPERATOR, HYDROELECTRIC OPERATOR-C Primary Care Provider Active Start: June 30, 2024 End: June 30, 2024 James Pacheco HYDROELECTRIC OPERATOR, HYDROELECTRIC OPERATOR-C Referring Provider Active S tart: June 30, 2024 End: June 30, 2024 Dr. Sarah Cardoso DO Attending Provider Activ e Start: June 30, 2024 End: June 30, 2024 Team Status: Inactive Member Role/Relationship Status Dates James Pacheco HYDROELECTRIC OPERATOR, HYDROELECTRIC OPERATOR-C Primary Care Provider Active Start: June 30, 2024 End: June 30, 2024 Dr. Sarah Cardoso DO Attending Provider Activ e Start: June 30, 2024 End: June 30, 2024 Dr. Sarah Cardoso DO Referring Provider Activ e Start: June 30, 2024 End: June 30, 2024 Team Status: Inactive Member Role/Relationship Status Dates James Pacheco HYDROELECTRIC OPERATOR, HYDROELECTRIC OPERATOR-C Primary Care Provider Active Start: October 09, 2024 End: October 09, 2024 James Pacheco HYDROELECTRIC OPERATOR, HYDROELECTRIC OPERATOR-C Referring Provider Active S tart: October 09, 2024 End: October 09, 2024 Dr. Sarah Cardoso DO Attending Provider Activ e Start: October 09, 2024 End: October 09, 2024 Team Status: Active Member Role/Relationship Status Dates Jaems Pacheco HYDROELECTRIC OPERATOR, HYDROELECTRIC OPERATOR-C Primary Care Provider Active Start: October 09, 2024 Dr. Sarah Cardoso DO Attending Provider Activ e Start: October 09, 2024 Source Comments (unrecognize d section and content) In the event this informatio n is protected by the Federal Confidentiality of Alcohol and Drug Abuse Patient Records regulations: The Federal rules restrict any use of the information to criminally investigate or prosecute any alcohol or drug abuse patient.[facility] the event this information is protected by the Federal Confidentiality of Alcohol and Drug Abuse Patient Records regulations: The Federal rules restrict any use of the information to criminally investigate or prosecute any alcohol or drug abuse patient.[facility] the event this information is protected by the Federal Confidentiality of Alcohol and Drug Abuse Patient Records regulations: The Federal rules restrict any use of the information to criminally investigate or prosecute any alcohol or drug abuse patient.[facility] the event this information is protected by the Federal Confidentiality of Alcohol and Drug Abuse Patient Records regulations: The Federal rules restrict any use of the information to criminally investigate or prosecute any alcohol or drug abuse patient.[facility] the event this information is protected by the Federal Confidentiality of Alcohol and Drug Abuse Patient Records regulations: The Federal rules restrict any use of the information to criminally investigate or prosecute any alcohol or drug abuse patient.[facility] the event this information is protected by the Federal Confidentiality of Alcohol and Drug Abuse Patient Records regulations: The Federal rules restrict any use of the information to criminally investigate or prosecute any alcohol or drug abuse patient.[facility] the event this information is protected by the Federal Confidentiality of Alcohol and Drug Abuse Patient Records regulations: The Federal rules restrict any use of the information to criminally investigate or prosecute any alcohol or drug abuse patient.[facility] the event this information is protected by the Federal Confidentiality of Alcohol and Drug Abuse Patient Records regulations: The Federal rules restrict any use of the information to criminally investigate or prosecute any alcohol or drug abuse patient.[facility] the event this information is protected by the Federal Confidentiality of Alcohol and Drug Abuse Patient Records regulations: The Federal rules restrict any use of the information to criminally investigate or prosecute any alcohol or drug abuse patient.[facility] the event this information is protected by the Federal Confidentiality of Alcohol and Drug Abuse Patient Records regulations: The Federal rules restrict any use of the information to criminally investigate or prosecute any alcohol or drug abuse patient.[facility] the event this information is protected by the Federal Confidentiality of Alcohol and Drug Abuse Patient Records regulations: The Federal rules restrict any use of the information to criminally investigate or prosecute any alcohol or drug abuse patient.[facility] Goals (unrecognized section and content) Goals may be documented in a n alternate sectionGoals may be documented in an alternate sectionGoals may be documented in an alternate sectionGoals may be documented in an alternate sectionGoals may be documented in an alternate section FOR RECORDS PERTAINING TO PATIENTS WHO ARE OR HAVE BEEN ENROLLED IN A CHEMICAL DEPENDENCY/SUBSTANCEABUSE PROGRAM, SOME INFORMATION MAY BE OMITTED. This clinical summary was aggregated from multiple sources. Caution should be exercised in using it in the provision of clinical care. This summary normalizes information from multiple sources, and as a consequence, information in this document may materially change the coding, format and clinical context of patient data. In addition, data may be omitted in some cases. CLINICAL DECISIONS SHOULD BE BASED ON THE PRIMARY CLINICAL RECORDS. [facility] [employer] [facility]. provides no warranty or guarantee of the accuracy or completeness of information in this document.
[2024-10-17 06:12] LABS: Internal QC Validated? YES +Cl - CLEAR BKGD; Pregnancy, Urine Negative Negative; Record Kit Lot#,Urine Preg 0000947241
[2024-10-17] MEDS: Lactated Ringers 1,000 ML 40 ML IV (06:24)
[2024-10-17] MEDS: Scopolamine 1mg/72hr Patch 1 PATCH TD (06:29)
[2024-10-17] MEDS: Magnesium 2 GM for ERAS IV (06:31)
--- NOTE | 2024-10-17 06:58 | PRE.ANES_ITS ---
ASA Classification* ASA Classification ASA Classification: 2 Assessment & Plan Anesthesia* Anesthesia Assessment Anesthesia Assessment: Discussed sedation and/or anesthesia options, risks, benefits, and alternatives with patient/parents/legal guardian/POA. Questions invited. The patient/parents/legal guardian/POA seems to understand and agrees to proceed with anesthesia plan. Reviewed the physical assessment, medical history, allergy history and patient home medications list prior to surgery/procedure/anesthetic and documented any changes. Performed airway and anesthesia risk assessments. Anesthesia Type Anesthesia Type: General History Source History Obtained from:: Patient and Chart Anesthesia Focused Assessment* Temperature: 97.8 F Pulse Rate: 74 Blood Pressure: 149/80 Respiratory Rate: 16 Pulse Ox: 100 Airway Assessment Mouth opens: >3 cm Mallampati Score: II Teeth Condition: Intact and Caps/Crowns Comment: bridge, crowns x 2, no loose teeth Labs Anesthesia Preop lab: CBC WBC 6.8 K/mm3 (4.4-11.0) 10/09/24 13:41 10/09/24 RBC 3.94 M/mm3 (4.2-5.4) L 10/09/24 13:41 10/09/24 Hgb 12.9 g/dL (12.0-15.0) 10/09/24 13:41 10/09/24 Hct 37.4 % (37-47) 10/09/24 13:41 10/09/24 Plt Count 234 K/mm3 (150-450) 10/09/24 13:41 10/09/24 CHEMISTRY Potassium 3.7 mmol/L (3.3-5.1) 10/09/24 13:41 10/09/24 Sodium 140 mmol/L (133-145) 10/09/24 13:41 10/09/24 Magnesium 1.9 mg/dL (1.5-2.2) 10/09/24 13:41 10/09/24 BUN 15 mg/dL (4-19) 10/09/24 13:41 10/09/24 Creatinine 0.73 mg/dL (0.70-1.20) 10/09/24 13:41 10/09/24 Glucose 122 mg/dL (70-99) H 10/09/24 13:41 10/09/24 POC Glucose 136 mg/dL (74-106) H 10/17/24 06:09 10/17/24 TSH 0.302 uIU/mL (0.300-4.200) 10/09/24 13:41 06/30 COAG Urine Test Negative Negative 10/17/24 05:55 10/17/24 Pre-Assessment Diagnosis/Proposed Procedure Planned Operative Procedure(s): (B) Lap Total Robotic Hysterectomy Nael Salping, Cystoscopy, possible Left Ooporectomy Anesthesia History Anesthesia History - technical solutions consultant: Anesthesia History - technical solutions consultant Hx Hospitalization No 10/06/24 09:12 Any Problems With Anesthesia Yes: ponv 10/06/24 09:12 Cholinesterase deficiency No 10/06/24 09:12 You/Your Family Experience No 10/06/24 09:12 fever (hyperthermia) with Relationship Recent Exposure to Contagious No 10/17/24 06:11 Disease Does patient have nerve No 10/06/24 09:12 stimulator Patient instructed to have device shut off --Does patient have Pacemaker No 10/17/24 06:15 or ICD? When Was Last Pacemaker Check QUESTION #4 FULL TEXT: You/Your Family Experience fever (hyperthermia) with Anesthesia Last Oral Intake Last Oral intake: Last Oral Intake NPO since 04:30 10/17/24 06:15 Meds taken in AM with sips of Yes 10/17/24 06:15 water? Meds patient instructed to take am of surgery PONV PONV - technical solutions consultant: PONV - technical solutions consultant Female Yes 10/06/24 09:12 HX of Motion Sickness Yes 10/06/24 09:12 HX of N/V After Surgery Yes 10/06/24 09:12 Non-Smoker Yes 10/06/24 09:12 Duration of Surgery greater Yes 10/06/24 09:12 than 60 minutes Number of Risk Factors 5 10/06/24 09:12 PONV Score Severe Risk 10/06/24 09:12 Height & Weight Height & Weight: Anesthesia: Height & Weight Height 5 ft 2.5 in 10/17/24 06:15 Weight: 83.461 kg 10/17/24 06:15 Body Mass Index (BMI) 33.1 10/17/24 06:15 Respiratory Assessment Respiratory Assessment - technical solutions consultant: Respiratory Tract Infection Hx - technical solutions consultant Hx Respiratory Tract Infection No 10/06/24 09:12 STOP Sleep Apnea STOP Sleep Apnea - technical solutions consultant: STOP Sleep Apnea - technical solutions consultant Hx Hypertension No 10/06/24 09:12 Hx Sleep Apnea No 10/06/24 09:12 CPAP BIPAP Do you snore loudly (louder No 10/06/24 09:12 than talking or can be heard Do you often feel tired/ No 10/06/24 09:12 fatigued/ sleepy during daytime? Has anyone observed you stop No 10/06/24 09:12 breathing during sleep? STOP Results Negative 10/06/24 09:12 QUESTION #5 FULL TEXT : Do you snore loudly (louder than talking or can be heard through closed doors)? 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 Specify any problems Hx of Preganancy in last 3 No 10/06/24 09:12 Months Nurse Filling Out Transfusion JZOLLAJIT 10/06/24 09:12 & Questions: Date: 10/06/24 10/06/24 09:12 Time: 09:16 10/06/24 09:12 Patient unable to answer at this time (ie. confused, unrespo /Reproduction History /Reproductive History - technical solutions consultant: /Reproductive Hx- technical solutions consultant Hx Now No 10/06/24 09:12 Gestational Age (in weeks): EDC: Hx Hx Para Hx Section SAB No 10/09/24 13:53 Active Medications Active Medications: Current Medications Generic Name Dose Route Start Last Admin Trade Name Freq PRN Reason Stop Dose Admin Magnesium Sulfate 2 gm/ 104 mls @ 208 mls/hr 10/17/24 07:30 10/17/24 06:31 Dextrose IV 10/17/24 07:59 208 mls/hr PREOP ONE Administration Lactated Ringer's 1,000 mls @ 15 mls/hr 10/17/24 05:45 IV .Q48H LEXA Lactated Ringer's 1,000 mls @ 40 mls/hr 10/17/24 05:55 10/17/24 06:24 IV 40 mls/hr .Q25H LEXA Administration Lactated Ringer's 1,000 mls @ 70 mls/hr 10/17/24 05:55 IV .[id number] LEXA Insulin Human Lispro 0 unit 10/17/24 05:55 Insulin Lispro 100 Unit/Ml Insuln.Pen SC Q4H PRN PRN BG >/= 180, SEE PROTOCOL Protocol PFSH Medical History Wears glasses Depression Anxiety Arthritis Thyroid disease Heartburn Former smoker Anemia Hypothyroidism Home Medications ?Medication ?Instructions ?Recorded ?Last Taken ?Type epinephrine 0.3 mg/0.3 mL 0.3 mg (0.3 mL) IM Q4H PRN 0 10/16/23 Unknown Rx injection, auto-injector (EpiPen anaphylaxis #2 ea 2-Chon) levothyroxine 100 mcg tablet 100 mcg PO DAILY 10/16/23 10/17/24 04:30 History ferrous sulfate 325 mg (65 mg 325 mg PO QODAY 05/01/24 10/13/24 History iron) tablet multivitamin 1 tab PO QDAY 05/01/2410/13 History zinc acetate 50 mg (zinc) capsule 50 mg PO QDAY 10/16/24 History lorazepam 0.5 mg tablet (Ativan) 0.5 mg PO QDAY take a m of surgery 10/16/24 Unknown Rx #1 TAB cholecalciferol (vitamin D3) 25 25 mcg PO DAILY 10/16/24 History mcg (1,000 unit) tablet (Vitamin D3) Allergy/AdvReac Type Severity Reaction Status Date / Time bee venom protein (honey Allergy Severe Swelling Verified 10/17/24 06:01 bee) (bee sting) cortisone Allergy Mild Rash Verified 10/17/24 06:01 azithromycin (From z pack) AdvReac Mild Rash Verified 10/17/24 06:01 Family History Mother Heart disease Thyroid disorder Surgical History Hx of tonsillectomy S/P appendectomy S/P right oophorectomy Social History Smoking Status: Former smoker alcohol intake: current alcohol intake frequency: a few times a month substance use type: does not use frequency: 5-6 times per week seatbelt use: always do you feel safe at home: Yes additional social history: -Roberto Review of Systems (Anesthesia) ROS Narrative System reviewed and no additional complaints, except as documented. Physical Exam Const alert and oriented x3 General Appearance: anxious HEENT dentition normal Neck full ROM Cardio regular rate and regular rhythm
--- NOTE | 2024-10-17 07:11 | PCM.HP.BLA ---
History and Physical Date of Admission: 10/17/24 Intake Vital Signs 06/30/2508:12 10/09/2512:31 Height 5 ft 2 in 5 ft 2 in Weight: 181 lb 6 oz BMI 33.1 BP 128/79 H Intake Visit Reasons: TRHBS Cysto possible left Ooph Cloth Neutralizer Required: No Is patient in pain?: No Allergies bee venom protein (honey bee) (bee sting) Allergy (Severe, Verified 10/09/24 13:31) Swellingcortisone Allergy (Mild, Verified 10/09/24 13:31) Rashazithromycin (From z pack) Adverse Reaction (Mild, Verified 10/09/24 13:31) Rash Medications ?Medication ?Instructions ?Recorded ?Confirmed ?Type epinephrine 0.3 mg/0.3 mL 0.3 mg (0.3 mL) IM Q4H PRN 10/16/23 10/09/24 Rx injection, auto-injector (EpiPen anaphylaxis #2 ea 2-Chon) levothyroxine 100 mcg tablet 100 mcg PO DAILY 10/16/23 10/09/24 History ferrous sulfate 325 mg (65 mg 325 mg PO QODAY 05/01/24 10/09/24 History iron) tablet multivitamin 1 tab PO QDAY 05/01/24 10/09/24 History zinc acetate 50 mg (zinc) capsule 50 mg PO QDAY 05/01/24 10/09/24 History Post menopausal: No Patient : No : No PFSH Medical History Wears glasses Depression Anxiety Arthritis Thyroid disease Heartburn Former smoker Anemia Hypothyroidism Surgical History Hx of tonsillectomy S/P appendectomy S/P right oophorectomy Family History Mother Heart disease Thyroid disorder Social History Smoking Status: Former smoker alcohol intake: current alcohol intake frequency: a few times a month substance use type: does not use frequency: 5-6 times per week seatbelt use: always do you feel safe at home: Yes additional social history: -Roberto HPI TRHBS Cysto possible left Ooph Details: GRACE ELKINS is a 59 year old (1 section) who presents for discussion about heavy periods. She has not gone a year without a menses yet. has strong fhx of heavy periods and a lot of family have had to have ablation procedures. She has decided to proceed with hysterectomy for treatment due to the size of her uterus. Her EMB prior to traveling to [place] this summer was inconclusive and a repeat also showed scant tissue. Ultrasound showed the following: REASON FOR EXAM: Abnormal uterine bleeding. TECHNIQUE: Transabdominal and transvaginal pelvic ultrasound COMPARISON: None. FINDINGS: Measurements: Uterus: 12.2 cm x 6.1 cm x 4.9 cm with a volume of 190.7 mL Endometrial Thickness: 11.3 mm. Endometrial thickening. Right Ovary: The patient is status post right oophorectomy. Left Ovary: 2.9 cm x 2.5 cm x 2 cm with a volume of 7.64 mL. TRANSABDOMINAL: Uterus: There are multiple small fibroids seen. The largest is in the fundal portion measuring 1.8 cm x 1.3 cm 1.4 cm. There is a nabothian cyst. Endometrium: Endometrium measures 11.3 mm. It is thickened. Right ovary: Status post right oophorectomy Left ovary: Normal size and echotexture. No large pelvic mass identified. Transvaginal sonography was performed to better visualize the endometrium. TRANSVAGINAL: Uterus: Anteverted. Small uterine fibroids. Endometrium: Endometrium is thickened and measures 11.3 mm. Right ovary: Status post right oophorectomy. Left ovary: Normal size and echotexture. Other adnexal findings: None. Cul-de-sac: No free intraperitoneal fluid identified. No tenderness. US/Pelvic w/ Transvaginal IMPRESSION: Status post right oophorectomy. Multiple small uterine fibroids. Endometrial thickening measuring 11.3 mm. History 4 Elective abortions Hx Para 4 Spontaneous abortions Hx # Term Pregnancies Ectopic pregnancies Hx # Pregnancies Multiple births # of living children 3 Past Pregnancies Del. Date Name GA/Weeks Outcome Route Bth Weight Infant Gen Labor Lgth Anesthesia Del Locatn Provider FOB Unknown Lb (dec) Unknown Donya Unknown Ciara Unknown Chance ROS Const ROS Unobtainable: All systems reviewed & are unremarkable except as noted in H Resp Resp: Reports system reviewed and no additional complaints, except as documented; Denies cough GI GI: Reports as per HPI Psych Psych: Reports system reviewed and no additional complaints, except as documented Exam Const General: cooperative, healthy appearing, comfortable and no acute distress Resp Effort & Inspection: normal respiratory effort GI Inspection: normal to inspection Palpation: soft and no hepatosplenomegaly Rectal Exam: visual inspection normal General: bimanual renal exam normal bilaterally External Female Exam: normal appearance of the urethra Urethra: normal appearance of the urethra Speculum Exam - Vagina: normal appearance of the vagina Speculum Exam - Cervix: normal appearance of the cervix Bimanual Exam- Adnexa, other: normal adnexae and normal Pelvic Support: normal Other: ultrasound at bedside shows cystic structures within the myometrium. the endometrium is 5mm. Skin General: no rashes or lesions noted Psych Appearance: grossly normal Speech and Movement: speech and movement normal Coding Level of Care Code Off vis,est,level 5 Diagnoses Fibroid uterus D25.9 Menorrhagia N92.0 Hypothyroidism E03.9 Anemia D64.9 CPT Codes Endometrial Biopsy (09089) Assessment and Plan Assessment and Plan (1) Fibroid uterus: Status: Acute (2) Menorrhagia: Status: Acute (3) Hypothyroidism: Status: Acute (4) Anemia: Status: Acute Orders: Orders Endometrial Biopsy Today N92.0 - Excessive and frequent menstruation with regular cycle Plan After discussing the patient's diagnosis and treatment plan options, patient wishes to proceed with surgical management. I have discussed with the patient the risks, benefits, and alternatives of the procedure which include but are not limited to risks of anesthesia, bleeding, infection, possible damage to bowel, bladder, or surrounding vasculature which could lead to additional surgery to evaluate any complications. Patient agrees to procedure and wishes to proceed. ACOG/uptodate references given for additional information regarding procedure. Plan is for total robotic hysterectomy, LSO and cystoscopy. (patient has one surgically absent ovary)
--- NOTE | 2024-10-17 07:13 | DCINST_ITS ---
Discharge Instructions DC O2, CPAP, BIPAP needs Home O2 Discharge instructions: No Dressing / Incision Discharge Activity: May Shower May resume sexual activity in: 8 weeks Weight Bearing Status: Full weight bearing Lifting Restrictions: 10 pounds for 2 weeks Dressing / Incision Call your doctor if your incision/area has: Continuous Slow Oozing, Sudden I ncreased Bleeding, Increased Pain/ Swelling, Increased Redness and Foul Smelling Discharge Call your doctor if you observe: Fever of 101 or Higher, Using more than 1 pad per hour, Shortness of breath, Chest pain and Uncontrolled pain Suture Line Care: Avoid Pulling/Pushing and Avoid Pinching/Bending Remove Dressing in: 1 week (if present) Cleanse incision/area with: Soap & Water and Keep Dressing Clean & Dry Follow Up Care Please Follow Up With: Sarah Cardoso DO When: Call to make an appointment with your doctor for a postop visit in 2 and 6 weeks Test Results: Test results from this visit will be discussed in further detail at your follow- up appointment, if applicable. Discharge Plan Admission Primary Reason for Your Visit: hysterectomy Attending Provider: Sarah Cardoso Primary Care Provider: Antonella Pacheco NP Instructions Print Language: Cymraes Discharge Orders/Prescriptions Prescriptions: New ibuprofen 800 mg tablet 800 mg PO Q8H PRN (Reason: pain) Qty: 30 0RF oxycodone-acetaminophen [Percocet] 5-325 mg tablet 1 tab PO Q4H PRN (Reason: pain) 7 Days Qty: 20 0RF Continued ferrous sulfate 325 mg (65 mg iron) tablet 325 mg PO QODAY zinc acetate 50 mg (zinc) capsule 50 mg PO QDAY multivitamin Tablet 1 tab PO QDAY levothyroxine 100 mcg tablet 100 mcg PO DAILY epinephrine [EpiPen 2-Chon] 0.3 mg/0.3 mL auto-injector 0.3 mg IM Q4H PRN (Reason: anaphylaxis) Qty: 2 0RF cholecalciferol (vitamin D3) [Vitamin D3] 25 mcg (1,000 unit) tablet 25 mcg PO DAILY lorazepam [Ativan] 0.5 mg tablet 0.5 mg PO QDAY Qty: 1 0RF Referrals / Follow Up: Antonella Pacheco NP, WASHING MACHINE OPERATOR-C [Primary Care Provider] - Disposition Disposition (needs filled in before D/C Order can be placed): Home, Self Care
[2024-10-17] MEDS: Midazolam 2 MG/2 ML Syringe IV (07:25)
--- NOTE | 2024-10-17 07:30 | UT_PTH ---
PATIENT: GRACE ELKINS LOC: [facility] – [place] U#:[id number] AGE/SX: 59/F ROOM: RE10/17/[address]: Dr. Sarah Cardoso DO : 1965 BED: DIS: 10/17/2024 SPEC #: [id number] RECD: 10/17/24 10:19 STATUS: KEV TOM #: [id number] JULIANN: 10/17/24 07:[address]: Sarah Cardoso DEPT: SURGICAL PATHOLOGY RECD BY: Leland Guy ENTERED: 10/17/24 14:54 SP TYPE: UTERUS OTHR DR: DUNCAN Rodriguez Tissues: A - Uterus, NOS Procedures: Surgery Specimen Level V HEADER OPERATION: ERAS, laparoscopic total robotic hysterectomy bilateral salpingectomy PRE-OP DIAGNOSIS: Fibroid uterus, menorrhagia, hypothyroidism, anemia TISSUE SUBMITTED: A- Uterus, cervix, left fallopian tube and left ovary MICROSCOPIC DIAGNOSIS A. Uterus, cervix, left fallopian tube, left ovary, hysterectomy with salpingectomy and oophorectomy: - Cervix: benign endocervical polyp, dilated endocervical glands. - Endometrium: endometrial polyp x2 arising in a background of disordered proliferation. - Myometrium: leiomyomata (1.5 cm), focal delicate serosal adhesions. - Left ovary: cystic follicle, atretic follicles and corpora albicantia. - Left fallopian tube: no specific pathologic change. MICROSCOPIC DESCRIPTION Slides are reviewed. GROSS DESCRIPTION A. Received in formalin labeled with the patient's name and date of . Designated as uterus, cervix, L fallopian tube, L ovary is a 184.5 g, 11.6 x 6.8 x 4.3 cm uterus with attached adnexa. The serosa is ramsey-pink with focal, congested apparent adhesions (posterior) and loosely adherent blood clot. The attached cervix is ramsey-pink and measures 3.8 x 3.2; the 0.6 cm os is probe patent and expelling slightly hemorrhagic mucoid material. Multiple mucoid containing cyst are present. An anterior cervical polyp is identified, 1.6 x 1.0 x 0.3 cm The specimen is inked as follows: [id number]. Opening reveals a 6.5 x 3.6 cm endometrial canal lined by pink-ramsey to red lush endometrium that measures up to 0.5 cm thick. There are 2 endometrial polyps as follows: Polyp #1: Anterior, 1.0 x 0.8 x 0.2 cmPolyp #2: Posterior, 1.5 x 0.8 x 07 cm The myometrium is ramsey-pink and measures up to 2.3 cm thick. A few intramural leiomyomas are identified, 1.5 cm in greatest dimension. The left fallopian tube is purple-red and fimbriated with a few paratubal cysts (up to 0.1 cm), and measuring 5.8 x 0.8 cm The left ovary is rasmey-pink, solid to cystic and cerebriform, measuring 3.4 x 2.3 x 2.0 cm. Test Technician sections are submitted as follows: A1: Anterior/posterior cervixA2: Anterior cervical polypA3: Endometrial polyp #1 (anterior)A4: Endometrial polyp #2 (posterior)A5: Anterior endomyometriumA6: Posterior endomyometriumA7: Intramural leiomyomas, serosal adhesionsA8: FimbriaA9: Fallopian tube [id number]: Ovary ID 10/17/2024 CPT:61879
[2024-10-17] MEDS: Lidocaine 1% (5 ml sdv) 5 ML Vial IV (07:32)
[2024-10-17] MEDS: Cefazolin 1 GM/5 ML Vial 2 GM IV (07:32)
--- NOTE | 2024-10-17 09:59 | PCM.OPRPT ---
Problems Associated Problem List Diagnoses (1) Fibroid uterus: (2) Menorrhagia: (3) Hypothyroidism: (4) Anemia: Multi Select Codes Urinary/Genital Urinary/Genital CPT Codes: 57326 Cystoscopy and 53755 TVH+BS/O <250gr uterus Operative Report (Standard) Operative Information Date of Procedure: 10/17/24 Pre-Operative Diagnosis: perimenopausal bleeding, enlarged fibroid uterus Post-Operative Diagnosis: perimenopausal bleeding, enlarged fibroid uterus Surgery/Procedure Performed: total robotic hysterectomy, left salpingo-oophorectomy, cystoscopy hospital liaison: Yes [employer] Merchant: Romeo Zendejas Tasks completed by office assistant receptionist: Closing, Insert Trochanter and Other (application of hemoblast and irrigation ) Additional front office medical assistant?: Yes Additional Corrections Counselor #2: Lakhwinder Sheikh Tasks completed by front office medical assistant #2: Other (assisted briefly with uterine manipulation. ) Additional front office medical assistant?: No Type of Anesthesia: General RN Documented Start/Stop Times: Operation Date: 10/17/24 07:30 Case Time Into Pre-Op 10/17/24 05:39 Out of Pre-Op 10/17/24 07:21 Anesthesia Start 10/17/24 07:25 Into Room 10/17/24 07:25 Procedure Start 10/17/24 07:52 Procedure End 10/17/24 09:55 Anesthesia End 10/17/24 09:59 Out of Room 10/17/24 09:59 Into Recovery 10/17/24 10:02 Procedure Start Time: 07:25 Procedure Stop Time: 09:55 Select all DRAINS/GRAFTS/IMPLANTS that apply: None Estimated Blood Loss: 100cc Specimen collected: Yes Description of specimen(s) removed: uterus, cervix, left ovary and fallopian tube. Description of surgery: Procedure: The patient was placed in the dorsal low lithotomy position and prepped and draped in the normal sterile fashion both abdominally and in the perineum. Her legs were placed in stirrups a Polk catheter was inserted into the urethra without difficulty. A weighted speculum was placed in the vagina and a single-tooth tenaculum was used to grasp the anterior lip of the cervix. An advincula uterine manipulator was inserted through the cervix without complication. It was then tied into place at the 2 and 10:00 locations on the cervix. Gloves were changed and attention was turned towards the abdomen. Approximately 23 cm above the pubic symphysis in the midline, and after Marcaine injection, a 8 mm incision was made. An 8 mm trocar was inserted through the laparoscope, then inserted into the abdomen under direct visualization using the laparoscope. Good abdominal placement was noted and no complications were appreciated. An air seal device was utilized to create pneumoperitoneum. At 12 cm lateral to the midline on the left and right sides 8 mm accessory ports were placed. Next a left upper quadrant 8 mm front office medical assistant port site was placed. The patient was placed in steep Trendelenburg position. The robot was docked. The hysterectomy was initiated first by taking down the round ligament on each side using the vessel sealer device. The peritoneum between the round ligament and the IP ligament was opened using electrocautery and extended the length of the IP ligament on the left side. The right ovary and fallopian tube were noted to be surgically absnent. The IP ligament was then taken down using the vessel sealer device. These areas were freed without complication the broad ligament was then and taken down using the vessel sealer device. Next the bladder flap was taken down without complication. This was done using monopolar cautery to the level of the cervical vaginal junction. After the bladder flap was created, uterine vessels were then isolated and cauterized using the vessel sealer device and EndoShears. At this point the uterine vessels were taken down further starting from the ascending branch, dissecting along the edges of the cervix to the level of the cervical vaginal junction with hemostasis appreciated. The cervical vaginal junction was then using monopolar cautery in a circumferential pattern across the superior aspect of the cervix. The specimen was delivered through the vagina and sent to pathology. The remaining vaginal cuff was then closed using a V lock suture. This was performed in a running technique. Excellent hemostasis was obtained and good closure was noted. Irrigation was then performed. All operative sites were noted to be hemostatic. A cystoscopy was performed with a 70 degree cystoscope through the urethra into the bladder without complication. The bladder was instilled with approximately 250 cc of normal saline. Intraoperative images were made. Ureteral orifices and jets were identified. No suture material was appreciated in the bladder. The bladder was then drained and cystoscope was removed. The abdominal cavity was again examined and some cautery was applied to oozing capillaries and hemoblast then applied. All operative sites were noted to be hemostatic. The trochars were removed under direct visualization without complication and pneumoperitoneum was reduced. At this point the skin was then closed using 4-0 Monocryl subcuticular stitch and sealed with surgical glue. The patient tolerated the procedure well sponge lap and needle counts were correct x2 the patient was taken to the recovery room in stable condition. Surgical Findings: surgically absent right ovary and fallopian tube. enlarged uterus. Complications Complications: No Admit VTE Documentation VTE Present on Admission: No VTE Mechan Device Prophylaxis: SCD's VTE Pharm Prophylaxis ordered?: No Reason prophylaxis not ordered: Treatment Not Indicated
[2024-10-17] MEDS: fentaNYL 100 MCG/2 ML Ampul 200 MCG IV (10:02)
--- NOTE | 2024-10-17 10:05 | PCM.POST.ANE ---
Anesthesia: Postop Eval I Current Vital Signs Temperature: 97.3 F Pulse Rate: 60 Blood Pressure: 138/80 Respiratory Rate: 14 Pulse Ox: 97 Oxygen Delivery Method: Room Air Assessment Airway patent: Yes Spontaneous unlabored respirations: Yes Mental status: Awake nausea: No Vomiting: No Anesthesia Complication: No Fluid Hydration Crystalloid volume administer (ml): 1,400 Total IV fluid infused: 1,400 Progress Note Anesthesia document: Postop Eval 1 completed: Yes
[2024-10-17] MEDS: Ketorolac 30 MG/ML Syringe IV (11:11)
[2024-10-17] MEDS: Lactated Ringers @ 70 MLS/HR 70 ML IV (11:53)
== END 2024-10-17 13:12 | disposition home or self-care (01) ==
LOC: SDC 05:34 → AC 05:36
PROVIDERS: Anesthesiology; PCP Registered Nurse; Referring Provider Obstetrics & Gynecology; Visit Provider Obstetrics & Gynecology
PROC: 0UT90ZZ Resection of Uterus, Open Approach (ICD-10-PCS; CPT 58571; principal; 2024-10-17 07:10)
DX: D25.1 Intramural leiomyoma of uterus (principal); Z79.4 Long term (current) use of insulin; D64.9 Anemia, unspecified; N92.0 Excessive and frequent menstruation with regular cycle; E03.9 Hypothyroidism, unspecified; Z87.891 Personal history of nicotine dependence; R93.89 Abnormal findings on diagnostic imaging of other specified body structures; N88.8 Other specified noninflammatory disorders of cervix uteri; Z90.721 Acquired absence of ovaries, unilateral; Z79.890 Hormone replacement therapy; N88.3 Incompetence of cervix uteri; N84.0 Polyp of corpus uteri; N88.1 Old laceration of cervix uteri; N83.292 Other ovarian cyst, left side; N83.8 Other noninflammatory disorders of ovary, fallopian tube and broad ligament
CPT/HCPCS: 58571; S2900; 00840; 36415; 80048; 81025; 82962; 83735; 84443; 85027; 86850; 86900; 86901; 88307; 93005; J2405

== ENCOUNTER → 2024-11-21 | Outpatient (CLI) | payer OTHER, SELFPAY ==
--- NOTE | 2024-11-21 13:07 | US_ITS ---
PROCEDURE: THYROID 11/21/2024 REASON FOR EXAM: Thyroid nodules. TECHNIQUE: Procedure Code: USTHY Modality: US Procedure: THYROID COMPARISON: Prior study dated July 24, 2023. FINDINGS: Right thyroid lobe size: 3.8 cm 1.6 cm 1.5 cm Left thyroid lobe size: 3.7 cm x 1.3 cm 1.1 cm Isthmus: 0.2 cm Background parenchymal echotexture is heterogeneous Nodules: . Lobe: Right lobe, Location: Upper pole, Size: 1 cm x 0.7 cm x 0.6 cm, Stability: Stable Composition: Mixed cystic and solid (+1) Echogenicity: Hypoechoic (+2) Margin: Smooth (+0) Shape: Wider than tall (+0) Echogenic Foci: TI-RADS: 3 . Lobe: Left, Location: Inferior pole, Size: 0.8 cm x 0.8 cm 0.4 cm, Stability: Stable Composition: Solid or almost completely solid (+2) Echogenicity: Hypoechoic (+2) Margin: Smooth (+0) Shape: Wider than tall (+0) Echogenic Foci: None (+0) TI-RADS: 4 US/Thyroid IMPRESSION: Heterogeneous appearance of both lobes of the thyroid gland. Multinodular goit er. Stable appearance of the dominant nodules in both lobes as described. Further follow-up recommended. RECOMMENDATION: Based on most suspicious nodule. Nodule size = largest diameter Only evaluate nodule if =>5 mm. Growth > 20% in 2 dimensions = worsening. Follow up to 4 nodules. Recommend biopsy for no more than 2 nodules. Reading Location: [place] [id number]
== END | disposition home or self-care (01) ==
PROVIDERS: PCP Registered Nurse; Referring Provider Internal Medicine Endocrinology, Diabetes & Metabolism; Visit Provider Internal Medicine Endocrinology, Diabetes & Metabolism
DX: E04.1 Nontoxic single thyroid nodule (principal)
CPT/HCPCS: 76536